=== PATIENT | male | born 1960 | race Caucasian/White ===

== ENCOUNTER 2022-07-05 14:36 | Inpatient (IN) ==
--- NOTE | 2022-07-05 15:25 | Emergency Department Note ---
HPI General Chief complaint: Wound/Laceration Stated complaint: foot wound Time Seen by Provider: 07/05/22 14:43 Source: patient Mode of arrival: wheelchair History of Present Illness HPI Narrative: Narrative: This patient who is diabetic and has a BKA to the left lower extremity presents with a complaint of infection to the right foot. Patient has been following with wound care for an infection to the right heel. He comes in today after the wound care nurse came to his residence to change his dressing and had concerned that he was developing a worsening infection. There is new erythema to the tissue surrounding the heel. There is also some concern due to some yellow discoloration of the skin around the wound that the patient may have a fungal infection. He does endorse some increased discomfort. He denies any trauma or injury. He has not felt febrile or chilled. He has not had any nausea or vomiting. He does see wound care every Tuesday. Anticipation after his last visit with wound care was that he would have a surgical debridement this week. Related Data Home Medications Medication Instructions Recorded Confirmed atorvastatin 20 mg tablet 40 mg PO QHS 01/29/20 07/01/22 melatonin 10 mg disintegrating 10 mg PO QHS 01/29/20 07/01/22 tablet metformin 1,000 mg tablet 1,000 mg PO BID 01/29/20 07/01/22 venlafaxine 150 mg 225 mg PO QAM 01/29/20 07/01/22 capsule,extended release 24 hr (Effexor XR) amlodipine 5 mg tablet 5 mg PO QDAY 07/28/21 07/01/22 aspirin 81 mg capsule 81 mg PO QDAY 07/28/21 07/01/22 brivaracetam 100 mg tablet 500 mg PO BID 07/28/21 07/01/22 (Briviact) cholecalciferol (vitamin D3) 125 150 mcg PO QDAY supplement 07/28/21 07/01/22 mcg (5,000 unit) tablet (Vitamin D3) gabapentin 300 mg capsule 300 mg PO TID 07/28/21 07/01/22 insulin detemir U-100 100 unit/mL 80 unit subcut BID 07/28/21 07/01/22 (3 mL) subcutaneous pen levothyroxine 200 mcg tablet 200 mcg PO QDAY 07/28/21 07/01/22 levothyroxine 50 mcg capsule 50 mcg PO QDAY 07/28/21 07/01/22 loratadine 10 mg capsule 20 mg PO QAM 07/28/21 07/01/22 [id number]-zkh-tyjmg acid-vit 1 tab PO DAILY supplement 07/28/21 07/01/22 K-lycop 400 mcg-20 mcg-370 mcg tablet (Men's 50 Plus Multivitamin) olmesartan 40 1 tab PO DAILY 07/28/21 07/01/22 mg-hydrochlorothiazide 12.5 mg tablet arginine 7 gram-glutamine 7 ea PO BID 06/25/22 07/01/22 gram-calcium HMB 1.5 gram oral powder pack (Piotr) ascorbic acid (vitamin C) 1,000 mg 1,000 mg PO QDAY 06/25/22 07/01/22 tablet,extended release (C Complex) cinnamon bark 500 mg capsule 500 mg PO BID 06/25/22 07/01/22 (Cinnamon) dulaglutide [Trulicity] subcut QWEEK 06/25/22 07/01/22 insulin detemir U-100 100 unit/mL 50 unit subcut BID 06/25/22 07/01/22 (3 mL) subcutaneous pen (Levemir FlexPen) krill 500 mg-omega-3 150 mg-dha 45 1 cap PO QDAY 06/25/22 07/01/22 mg-epa 75 [id number]-ievxn capsule (krill oil) metoprolol tartrate 25 mg tablet 25 mg PO BID 06/25/22 07/01/22 olmesartan 20 1 tab PO QDAY 06/25/22 07/01/22 mg-hydrochlorothiazide 12.5 mg tablet (Benicar HCT) omeprazole 20 mg capsule,delayed 20 mg PO QDAY 06/25/22 07/01/22 release Allergies Allergy/AdvReac Type Severity Reaction Status Date / Time No Known Drug Allergies Allergy Verified 07/05/22 14:50 Review of Systems ROS ROS Narrative: Narrative: Pertinent positives and negatives as noted in HPI. All other systems reviewed and negative. PFSH Narrative Patient History Narrative: Narrative: Medical/Surgical/Family History All Active Problems (Updated 07/05/22 @ 19:26 by Marilee Saavedra PA-C) Cellulitis (Acute) Pes planus of left foot (Chronic) Insomnia, persistent (Chronic) Allergic rhinitis (Chronic) Noncompliance with therapeutic plan (Chronic) Left ventricular hypertrophy (Chronic) Moderate recurrent major depression (Chronic) Pure hypercholesterolemia, unspecified (Chronic) Hypothyroidism (Chronic) Hypertension (Chronic) Poor peripheral circulation (Chronic) Seizure disorder (Chronic) Hearing loss (Chronic) Vitamin D deficiency (Chronic) Soft tissue mass (Chronic) Decubitus ulcer, heel (Chronic) History of left below knee amputation (Chronic) Diabetic neuropathy (Chronic) Diabetic foot ulcer (Chronic) Body mass index 40.0-44.9, adult (Chronic) Morbid obesity due to excess calories (Chronic) Abrasion of right index finger, initial encounter (Chronic) LEONARD (obstructive sleep apnea) (Chronic) Burn (Chronic) Osteomyelitis of foot, left, acute (Chronic) Sepsis (Chronic) Type 2 diabetes mellitus (Chronic) Acute hyperglycemia (Chronic) Pain of left heel (Chronic) Finger infection (Chronic) Syncope (Chronic) COVID-19 (Chronic) Sprain and strain of wrist (Chronic) Fall (Chronic) Medical History Abrasion of right index finger, initial encounter Acute hyperglycemia Allergic rhinitis Body mass index 40.0-44.9, adult Burn COVID-19 Decubitus ulcer, heel Diabetic foot ulcer Diabetic neuropathy Fall Finger infection Hearing loss History of left below knee amputation Hypertension Hypothyroidism Insomnia, persistent Left ventricular hypertrophy Moderate recurrent major depression Morbid obesity due to excess calories Noncompliance with therapeutic plan LEONARD (obstructive sleep apnea) Osteomyelitis of foot, left, acute Pain of left heel Pes planus of left foot Poor peripheral circulation Pure hypercholesterolemia, unspecified Seizure disorder Sepsis Soft tissue mass Sprain and strain of wrist Syncope Type 2 diabetes mellitus Vitamin D deficiency Surgical History History of ankle surgery (05/08/21) Left ankle break with repair History of cataract surgery (~2015) History of eye surgery Right eye -- correct bleeding blood vessel due to DM -- Dr. Bañuelos History of eye surgery (04/12/17) Reattachment of retina right eye History of eye surgery (01/31/18) Removal of oil in right eye -- Dr. Brown History of hand surgery (~2009) Left 5th finger (post fx) -- Dr. Roe History of left lower extremity amputation (~08/2021) Hx of LASIK (~06/2017) Right eye Hx of surgical amputation of finger (~2018) Partial amputation left middle finger due to bone infection Hx of surgical amputation of finger (~2020) Partial amputation right middle finger Family History Father Prostate cancer Throat cancer Social History Smoking Status: Never smoker Alcohol Intake Frequency: does not drink Substance Use: does not use Exam Narrative Narrative: Narrative: Vital signs noted General: mild distress. Skin: Warm. Dry. No rash. Normal color. Eyes: PERRL. EOMI. Mouth: Membranes moist. Normal inspection. Neck: Good ROM. No meningeal signs. Supple. Cardiovascular: Regular rate and rhythm. No murmur. Respiratory: No respiratory distress. Breath sounds equal. No wheezing/rales/rhonchi. Gastrointestinal: Abdomen soft. No tenderness. No distention. Normal bowel sounds. No rebound tenderness or guarding. Extremities: BKA left lower extremity. There is an eschar with wound to the right heel. Malodorous. Callus surrounding the centralized eschar. Eschar measures 4 cm in diameter. No active drainage. No fluctuance. Surrounding erythema noted extending into the forefoot. No streaking. Achilles tendon is palpated to be intact Neurological: No focal neurological deficits observed. Alert. Oriented x 3 Course Course Course Narrative: The following orders are placed and reviewed by myself: Patient does have mild fever noted upon arrival here to the emergency department. CBC and CHEM panel are reviewed Blood cultures obtained Lactic acid is 2 X-rays of the foot to evaluate for bony involvement concerning for osteomyelitis is evaluated by myself to be without moth-eaten appearance consistent with osteomyelitis. Cotton tip applicator was used to probe the tissue which is intact. Hemostat was used to probe tissue without probing to bone. Patient does have newly developed erythema with mild elevation in white count and borderline lactic acid. Due to the patient's history of rapidly progressing infection and the patient and his family being uncomfortable with being discharged home as well and has plans for surgical debridement in the next couple days I did discuss the patient with hospital service regarding admission today. Hospitalist service and is is in agreement. Hospitalist will touch base with wound care regarding plans for surgical debridement. Vital Signs Vital signs: Vital Signs Temperature 97.4 F 07/05/22 14:48 Pulse Rate 95 H 07/05/22 14:48 Respiratory Rate 18 07/05/22 14:48 Blood Pressure 121/72 07/05/22 14:48 Pulse Oximetry (%) 99 07/05/22 14:48 Oxygen Delivery Method Room Air 07/05/22 14:48 Temperature 98.8 F 07/05/22 15:50 Pulse Rate 91 H 07/05/22 17:02 Respiratory Rate 18 07/05/22 14:48 Blood Pressure 129/81 07/05/22 16:16 Pulse Oximetry (%) 98 07/05/22 17:02 Oxygen Delivery Method Room Air 07/05/22 14:48 MDM MDM Narrative Medical decision making narrative: Narrative: Lab Data 07/05/22 16:30 Labs: Lab Results 07/05/22 07/05/22 07/05/22 Range/Units 16:30 16:30 16:30 WBC 11.3 H (4.5-11.0) K/mcL RBC 4.29 L (4.63-6.08) M/mcL Hgb 12.3 L (13.7-17.5) g/dL Hct 38.1 L (40.1-51.0) % POC Hct (41-55) MCV 88.8 (80.0-100.0) fL MCH 28.7 (26.0-34.0) pg MCHC 32.3 (31.0-36.0) g/dL RDW 12.6 (11.5-14.5) % Plt Count 345 (140-440) K/mcL MPV 9.8 (8.8-12.5) fL Immature Gran % (Auto) 0.6 H (0.0-0.5) % Neut % (Auto) 77.8 (38.0-78.0) % Lymph % (Auto) 10.9 L (15.5-49.0) % Andrew % (Auto) 8.5 (1.0-12.0) % Eos % (Auto) 1.6 (0.0-7.0) % Baso % (Auto) 0.6 (0.0-2.0) % Lymph # (Auto) 1.23 L (1.50-4.80) K/mcL [place] # (Auto) 0.96 H (0.10-0.90) K/mcL Eos # (Auto) 0.18 (0.00-0.70) K/mcL Baso # (Auto) 0.07 (0.00-0.30) K/mcL Immature Gran # 0.07 H (0.00-0.05) K/mcl Absolute Neutrophils 8.80 H (1.80-8.00) K/mcL ESR 73 H (0-20) mm/hr VBG Lactic Acid 2.0 (0.5-2.0) mmol/L POC Sodium (133-145) POC Potassium (3.3-5.1) POC Chloride (96-108) POC Total CO2 (22-30) POC BUN (6-20) POC Creatinine (0.6-1.2) POC Glucose (70-105) POC WB Ioniz Calcium (1.16-1.32) C-Reactive Protein 4.30 H (0.03-0.80) mg/dL Procalcitonin 0.08 (<0.10) ng/mL 07/05/22 Range/Units 16:39 WBC (4.5-11.0) K/mcL RBC (4.63-6.08) M/mcL Hgb (13.7-17.5) g/dL Hct (40.1-51.0) % POC Hct 37.0 L (41-55) MCV (80.0-100.0) fL MCH (26.0-34.0) pg MCHC (31.0-36.0) g/dL RDW (11.5-14.5) % Plt Count (140-440) K/mcL MPV (8.8-12.5) fL Immature Gran % (Auto) (0.0-0.5) % Neut % (Auto) (38.0-78.0) % Lymph % (Auto) (15.5-49.0) % [place] % (Auto) (1.0-12.0) % Eos % (Auto) (0.0-7.0) % Baso % (Auto) (0.0-2.0) % Lymph # (Auto) (1.50-4.80) K/mcL Andrew # (Auto) (0.10-0.90) K/mcL Eos # (Auto) (0.00-0.70) K/mcL Baso # (Auto) (0.00-0.30) K/mcL Immature Gran # (0.00-0.05) K/mcl Absolute Neutrophils (1.80-8.00) K/mcL ESR (0-20) mm/hr VBG Lactic Acid (0.5-2.0) mmol/L POC Sodium 135 (133-145) POC Potassium 4.4 (3.3-5.1) POC Chloride 100 (96-108) POC Total CO2 27.0 (22-30) POC BUN 34 H (6-20) POC Creatinine 0.9 (0.6-1.2) POC Glucose 155 H (70-105) POC WB Ioniz Calcium 1.17 (1.16-1.32) C-Reactive Protein (0.03-0.80) mg/dL Procalcitonin (<0.10) ng/mL Discharge Plan Patient/Caregiver Discharge Instructions Pt seen by HUMAN DEVELOPMENT PROFESSOR/PA only: Yes Clinical Impression: Cellulitis Patient Disposition: Xfer As Outpt/Obs ([facility]) Follow up with: Josiah Espinosa [Primary Care Provider] - Prescriptions: No Action dulaglutide [Trulicity] subcut QWEEK metoprolol tartrate 25 mg tablet 25 mg PO BID Levemir FlexPen 100 unit/mL (3 mL) insulin pen 50 unit subcut BID olmesartan-hydrochlorothiazide [Benicar HCT] 20-12.5 mg tablet 1 tab PO QDAY Piotr 7-7-1.5 gram powder in packet PO BID omeprazole 20 mg capsule,delayed release(DR/EC) 20 mg PO QDAY C Complex 1,000 mg tablet extended release 1,000 mg PO QDAY cinnamon bark [Cinnamon] 500 mg capsule 500 mg PO BID krill oil [id number] mg capsule 1 cap PO QDAY atorvastatin 20 mg Tablet 40 mg PO QHS metformin 1,000 mg Tablet 1,000 mg PO BID melatonin 10 mg Tablet,Disintegrating 10 mg PO QHS venlafaxine [Effexor XR] 150 mg Capsule,Extended Release 24hr 225 mg PO QAM amlodipine 5 mg Tablet 5 mg PO QDAY gabapentin 300 mg Capsule 300 mg PO TID levothyroxine 200 mcg Tablet 200 mcg PO QDAY olmesartan-hydrochlorothiazide 40-12.5 mg Tablet 1 tab PO DAILY Levemir Flexpen 100 unit/mL (3 mL) Insulin Pen 80 unit SUBCUT BID cholecalciferol (vitamin D3) [Vitamin D3] 125 mcg (5,000 unit) Tablet 150 mcg PO QDAY levothyroxine 50 mcg Capsule 50 mcg PO QDAY loratadine 10 mg Capsule 20 mg PO QAM Men's 50 Plus Multivitamin 400-20-370 mcg Tablet 1 tab PO DAILY Briviact 100 mg Tablet 500 mg PO BID aspirin 81 mg Capsule 81 mg PO QDAY
--- NOTE | 2022-07-05 16:38 | XRay Report ---
CLINICAL INFORMATION: Cellulitis COMPARISON: Three 2022 FINDINGS: Moderate hallux valgus, metatarsus abductus and first through fifth digit hammertoe deformities appreciated. No evidence of osteomyelitis.. Joint spaces are normal in width and alignment. Moderate plantar soft tissue swelling appreciated. There is a 4 cm ulcerating lesion in the soft tissues over the calcaneus. IMPRESSION: 4 cm ulceration in the plantar soft tissues over the calcaneus-new from prior exam. No evidence of underlying osteomyelitis Interpreted and Authenticated by: Gonzalo Padilla 07/05/22
[2022-07-05 16:41] LABS: POC Calcium, Ionized 1.17 (1.16-1.32); POC Creatinine 0.9 (0.6-1.2); POC Potassium 4.4 (3.3-5.1)
[2022-07-05 17:22] LABS: Basophils # (Auto) 0.07 K/mcL (0.00-0.30); Basophils % (Auto) 0.6 % (0.0-2.0); Eosinophils # (Auto) 0.18 K/mcL (0.00-0.70); Eosinophils % (Auto) 1.6 % (0.0-7.0); Hematocrit 38.1 % (40.1-51.0); Hemoglobin 12.3 g/dL (13.7-17.5); Lymphocytes # (Auto) 1.23 K/mcL (1.50-4.80); Lymphocytes % (Auto) 10.9 % (15.5-49.0); Mean Cell Volume 88.8 fL (80.0-100.0); Mean Corpuscular HGB Conc 32.3 g/dL (31.0-36.0); Mean Platelet Volume 9.8 fL (8.8-12.5); Monocytes # (Auto) 0.96 K/mcL (0.10-0.90); Monocytes % (Auto) 8.5 % (1.0-12.0); Neutrophils % (Auto) 77.8 % (38.0-78.0); Platelet Count 345 K/mcL (140-440); RBC 4.29 M/mcL (4.63-6.08); Red Cell Distribution Width 12.6 % (11.5-14.5); WBC 11.3 K/mcL (4.5-11.0)
[2022-07-05 17:47] LABS: Erythrocyte Sedimentation Rate 73 mm/hr (0-20)
--- NOTE | 2022-07-05 18:51 | Internal Med History&Physical ---
HPI History of Present Illness Patient information: Note initiated : 07/05/22 at 6:39 pm Service Date, if different from initiated Date: [] Patient: Aravind Ashley 61 y/o M admitted on for foot wound. Chief Complaint: [] History of present illness: Mr. Ashley is a 61-year-old male with a history of insulin-dependent type 2 diabetes, hypertension, seizure disorder, GERD, obstructive sleep apnea, obesity, peripheral artery disease complicated by multiple amputations including a left BKA and several fingers presented to the ED at the recommendation of wound care for further evaluation of a right heel wound. The patient says that he first noticed the heel wound in May and it has progressively worsened. The patient follows in the wound care clinic and was supposed to have a debridement done by Dr. Bermudez on 07/07/2022. In the emergency department, the patient was afebrile, had mild leukocytosis, no evidence of sepsis however the patient does clearly have an infection in his right heel. CRP was 4.3, ESR 73. The patient says that he has had prior right lower extremity angiography which showed peripheral arterial disease however it was not amenable to correction by IR. He had a left BKA after developing a left foot infection a while ago. He says at that time he was septic and required transfer to higher level of care and ultimately received the BKA during the hospitalization. Review of systems Constitutional: no fever, fatigue, or weight loss Eyes: no vision changes or pain Cardiovascular: no chest pain, no palpitations Respiratory: no cough or dyspnea Gastrointestinal: no abdominal pain, no nausea, vomiting, or diarrhea Genitourinary: no dysuria or difficulty voiding Musculoskeletal: History of left BKA and multiple upper extremity digit amputations. Integumentary: Right heel wound. Neurological: no focal weakness or numbness Psychiatric: no anxiety or depression Physical exam Head: Atraumatic, normal inspection. Eyes: normal appearance, no scleral icterus. Neck: full ROM Respiratory: no respiratory distress. Cardiovascular: normal rate and rhythm, S1, S2. GI/Abdominal: soft, nontender, no guarding. Extremities: Right heel wound, left BKA, multiple prior upper extremity digit amputations. Neurological: CN II-XII intact, intact motor, intact sensation. Psychiatric: normal mood. Skin: Eschar over right heel wound, surrounding erythema, warmth and tenderness consistent with cellulitis. PFSH PFSH All Active Problems Pes planus of left foot (Chronic) Insomnia, persistent (Chronic) Allergic rhinitis (Chronic) Noncompliance with therapeutic plan (Chronic) Left ventricular hypertrophy (Chronic) Moderate recurrent major depression (Chronic) Pure hypercholesterolemia, unspecified (Chronic) Hypothyroidism (Chronic) Hypertension (Chronic) Poor peripheral circulation (Chronic) Seizure disorder (Chronic) Hearing loss (Chronic) Vitamin D deficiency (Chronic) Soft tissue mass (Chronic) Decubitus ulcer, heel (Chronic) History of left below knee amputation (Chronic) Diabetic neuropathy (Chronic) Diabetic foot ulcer (Chronic) Body mass index 40.0-44.9, adult (Chronic) Morbid obesity due to excess calories (Chronic) Abrasion of right index finger, initial encounter (Chronic) LEONARD (obstructive sleep apnea) (Chronic) Burn (Chronic) Osteomyelitis of foot, left, acute (Chronic) Sepsis (Chronic) Type 2 diabetes mellitus (Chronic) Acute hyperglycemia (Chronic) Pain of left heel (Chronic) Finger infection (Chronic) Syncope (Chronic) COVID-19 (Chronic) Sprain and strain of wrist (Chronic) Fall (Chronic) Medical History Abrasion of right index finger, initial encounter Acute hyperglycemia Allergic rhinitis Body mass index 40.0-44.9, adult Burn COVID-19 Decubitus ulcer, heel Diabetic foot ulcer Diabetic neuropathy Fall Finger infection Hearing loss History of left below knee amputation Hypertension Hypothyroidism Insomnia, persistent Left ventricular hypertrophy Moderate recurrent major depression Morbid obesity due to excess calories Noncompliance with therapeutic plan LEONARD (obstructive sleep apnea) Osteomyelitis of foot, left, acute Pain of left heel Pes planus of left foot Poor peripheral circulation Pure hypercholesterolemia, unspecified Seizure disorder Sepsis Soft tissue mass Sprain and strain of wrist Syncope Type 2 diabetes mellitus Vitamin D deficiency Surgical History History of ankle surgery (05/08/21) Left ankle break with repair History of cataract surgery (~2015) History of eye surgery Right eye -- correct bleeding blood vessel due to DM -- Dr. Bañuelos History of eye surgery (04/12/17) Reattachment of retina right eye History of eye surgery (01/31/18) Removal of oil in right eye -- Dr. Brown History of hand surgery (~2009) Left 5th finger (post fx) -- Dr. Roe History of left lower extremity amputation (~08/2021) Hx of LASIK (~06/2017) Right eye Hx of surgical amputation of finger (~2018) Partial amputation left middle finger due to bone infection Hx of surgical amputation of finger (~2020) Partial amputation right middle finger Family History Father Prostate cancer Throat cancer Social History marital status: occupational status: disabled physical activity: none smoking status: Never smoker alcohol intake frequency: does not drink substance use type: does not use MEDS/ALLERGIES Home Medications and Allergies Home Medications Medication Instructions Recorded Confirmed Type atorvastatin 20 mg tablet 40 mg PO QHS 01/29/20 07/01/22 History melatonin 10 mg disintegrating 10 mg PO QHS 01/29/20 07/01/22 History tablet metformin 1,000 mg tablet 1,000 mg PO BID 01/29/20 07/01/22 History venlafaxine 150 mg 225 mg PO QAM 01/29/20 07/01/22 History capsule,extended release 24 hr (Effexor XR) amlodipine 5 mg tablet 5 mg PO QDAY 07/28/21 07/01/22 History aspirin 81 mg capsule 81 mg PO QDAY 07/28/21 07/01/22 History brivaracetam 100 mg tablet 500 mg PO BID 07/28/21 07/01/22 History (Briviact) cholecalciferol (vitamin D3) 125 150 mcg PO QDAY supplement 07/28/21 07/01/22 History mcg (5,000 unit) tablet (Vitamin D3) gabapentin 300 mg capsule 300 mg PO TID 07/28/21 07/01/22 History insulin detemir U-100 100 unit/mL 80 unit subcut BID 07/28/21 07/01/22 History (3 mL) subcutaneous pen levothyroxine 200 mcg tablet 200 mcg PO QDAY 07/28/21 07/01/22 History levothyroxine 50 mcg capsule 50 mcg PO QDAY 07/28/21 07/01/22 History loratadine 10 mg capsule 20 mg PO QAM 07/28/21 07/01/22 History lwwponkaczbt-dgl-ebrar acid-vit 1 tab PO DAILY supplement 07/28/21 07/01/22 History K-lycop 400 mcg-20 mcg-370 mcg tablet (Men's 50 Plus Multivitamin) olmesartan 40 1 tab PO DAILY 07/28/21 07/01/22 History mg-hydrochlorothiazide 12.5 mg tablet arginine 7 gram-glutamine 7 ea PO BID 06/25/22 07/01/22 History gram-calcium HMB 1.5 gram oral powder pack (Piotr) ascorbic acid (vitamin C) 1,000 mg 1,000 mg PO QDAY 06/25/22 07/01/22 History tablet,extended release (C Complex) cinnamon bark 500 mg capsule 500 mg PO BID 06/25/22 07/01/22 History (Cinnamon) dulaglutide [Trulicity] subcut QWEEK 06/25/22 07/01/22 History insulin detemir U-100 100 unit/mL 50 unit subcut BID 06/25/22 07/01/22 History (3 mL) subcutaneous pen (Levemir FlexPen) krill 500 mg-omega-3 150 mg-dha 45 1 cap PO QDAY 06/25/22 07/01/22 History mg-epa 75 la-wrctyje-zssvd capsule (krill oil) metoprolol tartrate 25 mg tablet 25 mg PO BID 06/25/22 07/01/22 History olmesartan 20 1 tab PO QDAY 06/25/22 07/01/22 History mg-hydrochlorothiazide 12.5 mg tablet (Benicar HCT) omeprazole 20 mg capsule,delayed 20 mg PO QDAY 06/25/22 07/01/22 History release Allergies Allergy/AdvReac Type Severity Reaction Status Date / Time No Known Drug Allergies Allergy Verified 07/05/22 14:50 EXAM Constitutional Vitals: Temp Pulse Resp BP Pulse Ox O2 Del Method 98.8 F 91 H 18 129/81 98 Room Air 07/05/22 15:50 07/05/22 17:02 07/05/22 14:48 07/05/22 16:16 07/05/22 17:02 07/05/22 14:48 DATA Data Completed and Pending Labs: Labs from last 24 hours 07/05/22 07/05/22 07/05/22 16:39 16:30 16:30 WBC 11.3 H RBC 4.29 L Hgb 12.3 L Hct 38.1 L POC Hct 37.0 L MCV 88.8 MCH 28.7 MCHC 32.3 RDW 12.6 Plt Count 345 MPV 9.8 Immature Gran % (Auto) 0.6 H Neut % (Auto) 77.8 Lymph % (Auto) 10.9 L [place] % (Auto) 8.5 Eos % (Auto) 1.6 Baso % (Auto) 0.6 Lymph # (Auto) 1.23 L [place] # (Auto) 0.96 H Eos # (Auto) 0.18 Baso # (Auto) 0.07 Immature Gran # 0.07 H Absolute Neutrophils 8.80 H ESR 73 H VBG Lactic Acid POC Sodium 135 POC Potassium 4.4 POC Chloride 100 POC Total CO2 27.0 POC BUN 34 H POC Creatinine 0.9 POC Glucose 155 H POC WB Ioniz Calcium 1.17 C-Reactive Protein Procalcitonin Pending 07/05/22 16:30 WBC RBC Hgb Hct POC Hct MCV MCH MCHC RDW Plt Count MPV Immature Gran % (Auto) Neut % (Auto) Lymph % (Auto) [place] % (Auto) Eos % (Auto) Baso % (Auto) Lymph # (Auto) [place] # (Auto) Eos # (Auto) Baso # (Auto) Immature Gran # Absolute Neutrophils ESR VBG Lactic Acid 2.0 POC Sodium POC Potassium POC Chloride POC Total CO2 POC BUN POC Creatinine POC Glucose POC WB Ioniz Calcium C-Reactive Protein 4.30 H Procalcitonin A/P Narrative A/P Narrative: Assessment: 61-year-old male with a history of insulin-dependent type 2 diabetes, hypertension, seizure disorder, GERD, obstructive sleep apnea, obesity, peripheral artery disease complicated by multiple amputations including a left BKA and several fingers now admitted for a right heel infection and cellulitis. #Right heel diabetic foot infection and cellulitis #Type 2 diabetes mellitus complicated by neuropathy #Peripheral artery disease #Essential hypertension #Seizure disorder #GERD #Obstructive sleep apnea on CPAP #Obesity BMI 39 #History of left BKA and multiple finger amputations Plan -Start vancomycin IV per pharmacy and Zosyn. -CTA right lower extremity to evaluate for PAD amenable to intervention. -Follow-up blood cultures x2 from the ED. -Dr. Keenan will obtain surgical cultures tomorrow. -Check procalcitonin level. -Lantus 50 units at bedtime, prandial Humalog 1unit to 6 g carb ratio, correction Humalog SSI low-dose. -Check hemoglobin A1c. -Analgesics as needed. -Wound cares per Dr. Sierra. -Home medication reconciliation, resume important medications. -Consistent carbohydrate diet, n.p.o. after breakfast tomorrow. -CPAP at bedtime. -CODE STATUS: Full -Disposition: Admit to inpatient MedSurg. Time Spent With Patient Time: Total time spent is greater than 50% in coordination of care (as documented) at patient's floor/unit and/or counseling patient:
[2022-07-05] MEDS ORDERED: HYDROcodone/APAP 5/325MG TABLET PO PRN (19:37)
[2022-07-05] MEDS ORDERED: HYDROmorphone 0.5 MG/0.5 ML SYRINGE IV PRN (19:37)
[2022-07-05] MEDS ORDERED: VANCOMYCIN PER PHARMACY IV SCH (19:37)
[2022-07-05] MEDS ORDERED: DEXTROSE 50% 50 ML VIAL IV PRN (19:37)
[2022-07-05] MEDS ORDERED: ACETAMINOPHEN 325 MG TABLET PO PRN (19:37)
[2022-07-05] MEDS ORDERED: DEXTROSE 31 GM ORAL.SUSP PO PRN (19:37)
[2022-07-05] MEDS ORDERED: ONDANSETRON 4 MG/2 ML VIAL IV PRN (19:37)
[2022-07-05] MEDS ORDERED: IOPAMIDOL 125 ML BOTTLE IV ONE (20:50)
[2022-07-05] MEDS: PIPERACILLIN SODIUM/TAZOBACTAM 4.5 GM in DEXTROSE 5% IN WATER 50 ML IV SCH (21:09)
[2022-07-05] MEDS: SENNOSIDES 1 TABLET PO SCH (21:41)
[2022-07-05] MEDS: DOCUSATE SODIUM 100 MG CAPSULE PO SCH (21:41)
[2022-07-05] MEDS: 0.9 % SODIUM CHLORIDE 10 ML SYRINGE IV SCH (21:42)
[2022-07-05] MEDS: INSULIN LISPRO 1 UNIT/0.01 ML UNIT SQ SCH (21:54)
[2022-07-05] MEDS: INSULIN GLARGINE, HUMAN 1 UNIT/0.01 ML SQ SCH (21:54)
[2022-07-05] MEDS ORDERED: BRIVARACETAM 100 MG PO SCH (22:00)
[2022-07-05] MEDS: VANCOMYCIN 2,000 MG in 0.9 % SODIUM CHLORIDE 500 ML IV SCH (22:02)
[2022-07-05] MEDS ORDERED: METOPROLOL TARTRATE 25 MG TABLET ONE (22:25)
[2022-07-05] MEDS ORDERED: GABAPENTIN 300 MG CAPSULE ONE (22:32)
[2022-07-05] MEDS: METOPROLOL TARTRATE 25 MG TABLET PO SCH (22:32)
[2022-07-05] MEDS: GABAPENTIN 300 MG CAPSULE PO SCH (22:33)
--- NOTE | 2022-07-06 02:17 | Cat Scan Report ---
CLINICAL INFORMATION: Right lower extremity ischemia COMPARISON: None. TECHNIQUE: 120 cc of Isovue-370 were injected intravenously and, using SmartPrep to maximize arterial opacification, 0.625 mm helical slices were obtained from the diaphragm through the feet following reconstruction, 2.5 mm sagittal, coronal and axial reformatted images were processed and reviewed at bone and soft tissue windows. 3-D volume rendered and selective CPR images were constructed on an independent workstation.The exam was performed using radiation dose optimization techniques including, but not limited to, automated exposure control, adjustment of the mA and/or kV according to patient size and use of iterative reconstruction technique. FINDINGS: The abdominal aorta is normal diameter (19 mm) disease and demonstrates mild intimal thickening. The celiac, SMA and both renal arteries are widely patent. 50% stenosis of the DUNIA origin. There is scattered calcific plaque in both common, internal and external iliac, both common femoral, and both superficial femoral arteries. On the left side, there is a BKA amputation with high-grade stenoses in the popliteal artery and the residual proximal trifurcation arteries. On the right side, there is a 50% stenosis of the popliteal artery. The right trifurcation arteries are riddled with fibrofatty and calcific plaque. The peroneal artery is occluded in the distal calf. There are multiple stenoses, greater than 50%, in both the anterior tibial and the posterior tibial arteries. The arteries do, however, appear to be patent to the level of foot. Large ulceration posterior soft tissues over the right calcaneus appreciated. No evidence of underlying abscess or osteomyelitis. No other soft tissue abnormality seen in the axial images of the abdomen, pelvis and lower extremities IMPRESSION: 1. Right leg: iliac femoral and popliteal inflow is widely patent. Two-vessel trifurcation (anterior tibial and posterior arteries) are patent to the foot level, but riddled with multiple stenoses greater than 50%. The peroneal artery is occluded in the distal calf. 2. Left BKA amputation. There are high-grade stenoses in the distal popliteal and residual proximal trifurcation arteries ranging up to 90%. 3. 50% stenosis proximal DUNIA 4. 4 cm cutaneous ulceration posterior right calcaneus. No evidence of osteomyelitis or other complication Interpreted and Authenticated by: Gonzalo Padilla 07/06/22
[2022-07-06] MEDS: 0.9 % SODIUM CHLORIDE 10 ML SYRINGE IV SCH ×3 (04:09→20:51)
[2022-07-06] MEDS: PIPERACILLIN SODIUM/TAZOBACTAM 4.5 GM in DEXTROSE 5% IN WATER 50 ML IV SCH ×3 (04:09→20:41)
[2022-07-06 06:28] LABS: Basophils # (Auto) 0.06 K/mcL (0.00-0.30); Basophils % (Auto) 0.5 % (0.0-2.0); Eosinophils # (Auto) 0.17 K/mcL (0.00-0.70); Eosinophils % (Auto) 1.4 % (0.0-7.0); Hemoglobin 12.5 g/dL (13.7-17.5); Lymphocytes # (Auto) 1.63 K/mcL (1.50-4.80); Lymphocytes % (Auto) 13.8 % (15.5-49.0); Mean Corpuscular HGB Conc 32.9 g/dL (31.0-36.0); Mean Platelet Volume 9.8 fL (8.8-12.5); Monocytes # (Auto) 0.93 K/mcL (0.10-0.90); Monocytes % (Auto) 7.9 % (1.0-12.0); Neutrophils % (Auto) 75.9 % (38.0-78.0); Platelet Count 374 K/mcL (140-440); RBC 4.32 M/mcL (4.63-6.08); Red Cell Distribution Width 12.6 % (11.5-14.5); WBC 11.8 K/mcL (4.5-11.0)
[2022-07-06 06:47] LABS: Carbon Dioxide 23 mmol/L (22-30); Chloride 97 mmol/L (96-108); Estimated Average Glucose(eAG) 197 mg/dL; Hemoglobin A1C 8.5 % Hgb (4.0-6.0)
[2022-07-06 06:48] LABS: ALT/SGPT 13 U/L (<40); AST/SGOT 15 U/L (<40); Albumin 3.6 gm/dL (3.2-5.2); Alkaline Phosphatase 142 U/L (39-117); Bilirubin,Direct < 0.2 mg/dL (0-0.3); Bilirubin,Total 0.3 mg/dL (0.1-1.0); Blood Urea Nitrogen 28 mg/dL (6-20); Calcium 9.4 mg/dL (8.6-10.4); Globulin 3.6 gm/dL (2.2-3.7); Glomerular Filtration Rate 97; Glucose 110 mg/dL (70-105); Lactate Dehydrogenase 165 U/L (135-225); Phosphorous 3.5 mg/dL (2.5-4.5); Triglycerides 166 mg/dL (<150); Uric Acid 7.1 mg/dL (2.5-8.0)
[2022-07-06] MEDS: INSULIN LISPRO 1 UNIT/0.01 ML UNIT SQ SCH ×7 (07:22→20:57)
[2022-07-06] MEDS: OMEPRAZOLE 20 MG CAPSULE PO SCH (07:25)
[2022-07-06] MEDS: METOPROLOL TARTRATE 25 MG TABLET PO SCH ×2 (08:27→20:48)
[2022-07-06] MEDS: DOCUSATE SODIUM 100 MG CAPSULE PO SCH ×2 (08:27→20:50)
[2022-07-06] MEDS: LEVOTHYROXINE 100 MCG TABLET PO SCH (08:27)
[2022-07-06] MEDS: HYDROCHLOROTHIAZIDE 12.5 MG CAPSULE PO SCH (08:27)
[2022-07-06] MEDS: amLODIPine 5 MG TABLET PO SCH (08:27)
[2022-07-06] MEDS: LEVOTHYROXINE 50 MCG TABLET PO SCH (08:27)
[2022-07-06] MEDS: VENLAFAXINE 75 MG CAP.XL.24H PO SCH (08:27)
[2022-07-06] MEDS: VENLAFAXINE 150 MG CAP.XL.24H PO SCH (08:27)
[2022-07-06] MEDS: BRIVIACT 100 MG PO SCH ×2 (08:28→20:51)
[2022-07-06] MEDS: OLMESARTAN MEDOXOMIL 20 MG TABLET PO SCH (08:28)
[2022-07-06] MEDS: ASPIRIN 81 MG TAB.CHEW PO SCH (08:28)
[2022-07-06] MEDS ORDERED: LORATADINE 10 MG PO SCH (09:00)
[2022-07-06] MEDS: VANCOMYCIN 2,000 MG in 0.9 % SODIUM CHLORIDE 500 ML IV SCH ×2 (09:56→21:18)
--- NOTE | 2022-07-06 10:43 | General Surgery Consult Note ---
HPI Date of Consult Consult Date: 07/06/22 Requesting physician: Jd Traore Primary Care Provider: Josiah Espinosa Consult Narrative Patient Information: Note initiated : 07/06/22 at 10:35 am Service Date, if different from initiated Date: [] Patient: Aravind Ashley 61 y/o M admitted on 07/05/22 for foot wound. Chief Complaint: [] Chief complaint: Cellulitis of RIGHT psoterior heel. Reason for consult: Surgical debridement and continuation of wound management. cc:: Mr. Ashley is an established patient at wound care clinic [facility]. He presented to the ER at [facility] for cellulitis, odor, redness and edema around LEFT posterior heel DFU. He was started on IV antibiotics for leucocytosis and elevated CRP. He needs surgical debridement in OR, with pulse lavage irrigation, deep tissue and bone cultures and biopsies. CC: Jd Traore MD Review of Systems All systems: reviewed and no additional remarkable complaints except as stated Constitutional Constitutional: Present as per HPI and other (RIGHT posterior heel DFU with periwound warmth, erythema and odor while awaiting surgical debridement. Seen by N and referred to ER for interval chages in wound.) PFSH PFSH All Active Problems Cellulitis (Acute) Pes planus of left foot (Chronic) Insomnia, persistent (Chronic) Allergic rhinitis (Chronic) Noncompliance with therapeutic plan (Chronic) Left ventricular hypertrophy (Chronic) Moderate recurrent major depression (Chronic) Pure hypercholesterolemia, unspecified (Chronic) Hypothyroidism (Chronic) Hypertension (Chronic) Poor peripheral circulation (Chronic) Seizure disorder (Chronic) Hearing loss (Chronic) Vitamin D deficiency (Chronic) Soft tissue mass (Chronic) Decubitus ulcer, heel (Chronic) History of left below knee amputation (Chronic) Diabetic neuropathy (Chronic) Diabetic foot ulcer (Chronic) Body mass index 40.0-44.9, adult (Chronic) Morbid obesity due to excess calories (Chronic) Abrasion of right index finger, initial encounter (Chronic) LEONARD (obstructive sleep apnea) (Chronic) Burn (Chronic) Osteomyelitis of foot, left, acute (Chronic) Sepsis (Chronic) Type 2 diabetes mellitus (Chronic) Acute hyperglycemia (Chronic) Pain of left heel (Chronic) Finger infection (Chronic) Syncope (Chronic) COVID-19 (Chronic) Sprain and strain of wrist (Chronic) Fall (Chronic) Medical History Abrasion of right index finger, initial encounter Acute hyperglycemia Allergic rhinitis Body mass index 40.0-44.9, adult Burn COVID-19 Decubitus ulcer, heel Diabetic foot ulcer Diabetic neuropathy Fall Finger infection Hearing loss History of left below knee amputation Hypertension Hypothyroidism Insomnia, persistent Left ventricular hypertrophy Moderate recurrent major depression Morbid obesity due to excess calories Noncompliance with therapeutic plan LEONARD (obstructive sleep apnea) Osteomyelitis of foot, left, acute Pain of left heel Pes planus of left foot Poor peripheral circulation Pure hypercholesterolemia, unspecified Seizure disorder Sepsis Soft tissue mass Sprain and strain of wrist Syncope Type 2 diabetes mellitus Vitamin D deficiency Surgical History History of ankle surgery (05/08/21) Left ankle break with repair History of cataract surgery (~2015) History of eye surgery Right eye -- correct bleeding blood vessel due to DM -- Dr. Bañuelos History of eye surgery (04/12/17) Reattachment of retina right eye History of eye surgery (01/31/18) Removal of oil in right eye -- Dr. Brown History of hand surgery (~2009) Left 5th finger (post fx) -- Dr. Roe History of left lower extremity amputation (~08/2021) Hx of LASIK (~06/2017) Right eye Hx of surgical amputation of finger (~2018) Partial amputation left middle finger due to bone infection Hx of surgical amputation of finger (~2020) Partial amputation right middle finger Family History Father Prostate cancer Throat cancer Social History marital status: occupational status: disabled physical activity: none smoking status: Never smoker alcohol intake frequency: does not drink substance use type: does not use MEDS/ALLERGIES Home Medications and Allergies Home Medications Medication Instructions Recorded Confirmed Type atorvastatin 20 mg tablet 40 mg PO QHS 01/29/20 07/05/22 History melatonin 10 mg disintegrating 10 mg PO QHS 01/29/20 07/05/22 History tablet metformin 1,000 mg tablet 1,000 mg PO BID 01/29/20 07/05/22 History venlafaxine 150 mg 225 mg PO QAM 01/29/20 07/05/22 History capsule,extended release 24 hr (Effexor XR) amlodipine 5 mg tablet 5 mg PO QDAY 07/28/21 07/05/22 History aspirin 81 mg capsule 81 mg PO QDAY 07/28/21 07/05/22 History brivaracetam 100 mg tablet 100 mg PO BID 07/28/21 07/05/22 History (Briviact) cholecalciferol (vitamin D3) 125 150 mcg PO QDAY supplement 07/28/21 07/05/22 History mcg (5,000 unit) tablet (Vitamin D3) gabapentin 300 mg capsule 300 mg PO QHS 07/28/21 07/05/22 History levothyroxine 200 mcg tablet 200 mcg PO QDAY 07/28/21 07/05/22 History levothyroxine 50 mcg capsule 50 mcg PO QDAY 07/28/21 07/05/22 History loratadine 10 mg capsule 20 mg PO QAM 07/28/21 07/05/22 History idylytrnbzhl-nnv-brqyd acid-vit 1 tab PO DAILY supplement 07/28/21 07/05/22 History K-lycop 400 mcg-20 mcg-370 mcg tablet (Men's 50 Plus Multivitamin) olmesartan 40 1 tab PO DAILY 07/28/21 07/05/22 History mg-hydrochlorothiazide 12.5 mg tablet arginine 7 gram-glutamine 7 ea PO BID 06/25/22 07/01/22 History gram-calcium HMB 1.5 gram oral powder pack (Piotr) ascorbic acid (vitamin C) 1,000 mg 1,000 mg PO QDAY 06/25/22 07/05/22 History tablet,extended release (C Complex) cinnamon bark 500 mg capsule 500 mg PO BID 06/25/22 07/05/22 History (Cinnamon) dulaglutide [Trulicity] subcut QWEEK 06/25/22 07/01/22 History insulin detemir U-100 100 unit/mL 50 unit subcut BID 06/25/22 07/05/22 History (3 mL) subcutaneous pen (Levemir FlexPen) krill 500 mg-omega-3 150 mg-dha 45 1 cap PO QDAY 06/25/22 07/05/22 History mg-epa 75 nw-qozhofk-woeny capsule (krill oil) metoprolol tartrate 25 mg tablet 25 mg PO BID 06/25/22 07/05/22 History olmesartan 20 1 tab PO QDAY 06/25/22 07/01/22 History mg-hydrochlorothiazide 12.5 mg tablet (Benicar HCT) omeprazole 20 mg capsule,delayed 20 mg PO QDAY 06/25/22 07/05/22 History release Allergies Allergy/AdvReac Type Severity Reaction Status Date / Time No Known Drug Allergies Allergy Verified 07/05/22 14:50 Physical Examination Vital Signs Vital signs: Temp Pulse Resp BP Pulse Ox O2 Del Method 98.4 F 98 H 14 130/79 98 Room Air 07/06/22 07:50 07/06/22 07:50 07/06/22 07:50 07/06/22 07:50 07/06/22 07:50 07/06/22 07:50 General physical appearance General physical exam: well developed, well nourished, no distress, severe distress, chronically ill and obese (Morbid obesity and wheelchair for mobility. ) Eyes Eye exam: PERRL ENT ENT exam: normal pinna, normal mucosa and no congestion Head Head exam IM: Present atraumatic and normocephalic Neck Neck exam: no masses and no venous distension Cardiovascular Cardiovascular exam IM: Present normal rate and rhythm Respiratory Respiratory exam: normal expansion, normal respiratory effort and clear to auscultation Abdomen Abdomen: Present soft, non tender and bowel sounds Integumentary Integumentary: Present other (DTI with black eschar RIGHT posterior heel, pretreated with collagenase ointment. There is periwound cellulitis and e rythema, redness for 1-2 CM. ) Neurologic Neurologic: Present normal coordination and other (Diabetes with Peripheral neuropathy. ) Musculoskeletal Musculoskeletal: Present other (Wheel chair trasportation. Prior LEFT BKA and amputations of both hands distal fingers 3/4. ) Psychiatric Psychiatric: Present oriented to time, oriented to person, oriented to place, speech is normal, memory intact and other (Motivated and has strong family support. ) Additional Findings Additional exam: Reviewed lab results and imaging studies. Results Labs 07/06/22 05:26 07/06/22 05:26 Labs: Abnormal lab results 07/05/22 07/05/22 07/05/22 Range/Units 16:30 16:30 16:39 WBC 11.3 H (4.5-11.0) K/mcL RBC 4.29 L (4.63-6.08) M/mcL Hgb 12.3 L (13.7-17.5) g/dL Hct 38.1 L (40.1-51.0) % POC Hct 37.0 L (41-55) Immature Gran % (Auto) 0.6 H (0.0-0.5) % Lymph % (Auto) 10.9 L (15.5-49.0) % Lymph # (Auto) 1.23 L (1.50-4.80) K/mcL Cooper # (Auto) 0.96 H (0.10-0.90) K/mcL Immature Gran # 0.07 H (0.00-0.05) K/mcl Absolute Neutrophils 8.80 H (1.80-8.00) K/mcL ESR 73 H (0-20) mm/hr Sodium (133-145) mmol/L POC BUN 34 H (6-20) BUN (6-20) mg/dL Glucose (70-105) mg/dL POC Glucose 155 H (70-105) Hemoglobin A1c (4.0-6.0) % Hgb Alkaline Phosphatase (39-117) U/L C-Reactive Protein 4.30 H (0.03-0.80) mg/dL Triglycerides (<150) mg/dL 07/06/22 07/06/22 Range/Units 05:26 05:26 WBC 11.8 H (4.5-11.0) K/mcL RBC 4.32 L (4.63-6.08) M/mcL Hgb 12.5 L (13.7-17.5) g/dL Hct 38.0 L (40.1-51.0) % POC Hct (41-55) Immature Gran % (Auto) (0.0-0.5) % Lymph % (Auto) 13.8 L (15.5-49.0) % Lymph # (Auto) (1.50-4.80) K/mcL Cooper # (Auto) 0.93 H (0.10-0.90) K/mcL Immature Gran # 0.06 H (0.00-0.05) K/mcl Absolute Neutrophils 8.92 H (1.80-8.00) K/mcL ESR (0-20) mm/hr Sodium 131 L (133-145) mmol/L POC BUN (6-20) BUN 28 H (6-20) mg/dL Glucose 110 H (70-105) mg/dL POC Glucose (70-105) Hemoglobin A1c 8.5 H (4.0-6.0) % Hgb Alkaline Phosphatase 142 H (39-117) U/L C-Reactive Protein (0.03-0.80) mg/dL Triglycerides 166 H (<150) mg/dL Diabetes panel 07/06/22 Range/Units 05:26 Sodium 131 L (133-145) mmol/L Potassium 4.4 (3.3-5.1) mmol/L Chloride 97 (96-108) mmol/L Carbon Dioxide 23 (22-30) mmol/L BUN 28 H (6-20) mg/dL Creatinine 0.8 (0.7-1.2) mg/dL Glucose 110 H (70-105) mg/dL Hemoglobin A1c 8.5 H (4.0-6.0) % Hgb Calcium 9.4 (8.6-10.4) mg/dL AST 15 (<40) U/L ALT 13 (<40) U/L Alkaline Phosphatase 142 H (39-117) U/L Total Protein 7.2 (5.9-8.4) gm/dL Albumin 3.6 (3.2-5.2) gm/dL Triglycerides 166 H (<150) mg/dL Calcium panel 07/06/22 Range/Units 05:26 Calcium 9.4 (8.6-10.4) mg/dL Phosphorus 3.5 (2.5-4.5) mg/dL Albumin 3.6 (3.2-5.2) gm/dL Pituitary panel 07/06/22 Range/Units 05:26 Sodium 131 L (133-145) mmol/L Potassium 4.4 (3.3-5.1) mmol/L Chloride 97 (96-108) mmol/L Carbon Dioxide 23 (22-30) mmol/L BUN 28 H (6-20) mg/dL Creatinine 0.8 (0.7-1.2) mg/dL Glucose 110 H (70-105) mg/dL Calcium 9.4 (8.6-10.4) mg/dL Adrenal panel 07/06/22 Range/Units 05:26 Sodium 131 L (133-145) mmol/L Potassium 4.4 (3.3-5.1) mmol/L Chloride 97 (96-108) mmol/L Carbon Dioxide 23 (22-30) mmol/L BUN 28 H (6-20) mg/dL Creatinine 0.8 (0.7-1.2) mg/dL Glucose 110 H (70-105) mg/dL Calcium 9.4 (8.6-10.4) mg/dL Total Bilirubin 0.3 (0.1-1.0) mg/dL AST 15 (<40) U/L ALT 13 (<40) U/L Alkaline Phosphatase 142 H (39-117) U/L Total Protein 7.2 (5.9-8.4) gm/dL Albumin 3.6 (3.2-5.2) gm/dL All other labs normal. A/P Narrative A/P Narrative: Assessment: CSSSI Cellulitis RIGHT posterior heel foot. DTI Right posterior heel DFU Peripheral neuropathy DM2 HTN Prior LEFT BKA Prior distal amputations of bilateral hand 3/4 fingers. Needs surgical debridement, bone and tissue biopsy cultures. Plan of Treatment: Plan: Patient seen with Jennifer Graham RNhot press operator Nurse Property Custodian. Agree with current empiric IV antibiotics. Checked with OR. Full schedule today. For surgery tomorrow. Spoke with at length about procedure. Answered all his questions. Further recommendations as condition evolves. Time Spent With Patient Time: Total time spent is greater than 50% in coordination of care (as documented) at patient's floor/unit and/or counseling patient: Initial: Total time with patient: 55 - 74 minutes
--- NOTE | 2022-07-06 14:33 | Internal Med Progress Note ---
SUBJECTIVE Subjective Patient information: Note initiated : 07/06/22 at 2:28 pm Service Date, if different from initiated Date: [] Patient: Aravind Ashley 61 y/o M admitted on 07/05/22 for foot wound. Chief Complaint: [] Interval history: Mr. Ashley is a 61-year-old male with a history of insulin-dependent type 2 diabetes, hypertension, seizure disorder, GERD, obstructive sleep apnea, obesity, peripheral artery disease complicated by multiple amputations including a left BKA and several fingers presented to the ED at the recommendation of wound care for further evaluation of a right heel wound. The patient says that he first noticed the heel wound in May and it has progressively worsened. The patient follows in the wound care clinic and was supposed to have a debridement done by Dr. Bermudez on 07/07/2022. In the emergency department, the patient was afebrile, had mild leukocytosis, no evidence of sepsis however the patient does clearly have an infection in his right heel. CRP was 4.3, ESR 73. The patient says that he has had prior right lower extremity angiography which showed peripheral arterial disease however it was not amenable to correction by IR. He had a left BKA after developing a left foot infection a while ago. He says at that time he was septic and required transfer to higher level of care and ultimately received the BKA during the hospitalization. 07/06 No significant events overnight, stable glycemic control, hemoglobin A1c was 8.5. CTA right lower extremity showed right iliac femoral and popliteal inflow widely patent, right anterior tibial and posterior tibial arteries are patent to the foot level but riddled with multiple stenosis greater than 50%, the right peroneal artery is occluded in the distal calf. Continues on broad-spectrum antibiotics, surgery planned for tomorrow. Physical exam Head: Atraumatic, normal inspection. Eyes: normal appearance, no scleral icterus. Neck: full ROM Respiratory: no respiratory distress. Cardiovascular: normal rate and rhythm, S1, S2. GI/Abdominal: soft, nontender, no guarding. Extremities: Right heel wound, left BKA, multiple prior upper extremity digit amputations. Neurological: CN II-XII intact, intact motor, intact sensation. Psychiatric: normal mood. Skin: Eschar over right heel wound, surrounding erythema, warmth and tenderness consistent with cellulitis. Constitutional Vitals: Vital Signs Temp Pulse Resp BP Pulse Ox O2 Del Method 98.1 F 94 H 14 91/78 98 Room Air 07/06/22 12:00 07/06/22 12:00 07/06/22 12:00 07/06/22 12:00 07/06/22 12:00 07/06/22 12:00 Period Temp Pulse Resp BP Sys/Kay Pulse Ox O2 Del Method O2 Flow Rate Last 24 Hr 97.2 F-98.8 F 89-98 12-18 91-144/72-90 94-100 Room Air-Room Air Intake and Output 07/06/22 07/06/22 07/06/22 03:59 11:59 19:59 Intake Total 086 670 3885 Output Total 1050 Balance -472 680 8133 Weight 137.166 kg Intake & Output: Intake & Output 07/06/22 07/06/22 07/06/22 03:59 11:59 19:59 Intake Total 982 789 4016 Output Total 1050 Balance -510 284 4322 Weight 137.166 kg Intake: IV 550 50 550 Zosyn 4.5 gm In Dextrose 5% in 50 50 50 Water 50 ml @ 100 mls/hr IV Q8H KAREL Rx#:[id number] Vancomycin 2,000 mg In Sodium 500 500 Chloride 0.9% 500 ml @ 250 mls/ hr IV Q12H KAREL Rx#:[id number] Oral 250 120 680 Output: Void Amount 1050 Other: Meal Breakfast Lunch Percent of Meal Consumed 100% 100% Urine Appearance Clear Urine Color Yellow OBJ DATA Labs 07/06/22 05:26 07/06/22 05:26 Labs: Abnormal Lab Results 07/06/22 07/06/22 07/05/22 05:26 05:26 16:39 WBC 11.8 H RBC 4.32 L Hgb 12.5 L Hct 38.0 L POC Hct 37.0 L Immature Gran % (Auto) Lymph % (Auto) 13.8 L Lymph # (Auto) [place] # (Auto) 0.93 H Immature Gran # 0.06 H Absolute Neutrophils 8.92 H ESR Sodium 131 L POC BUN 34 H BUN 28 H Glucose 110 H POC Glucose 155 H Hemoglobin A1c 8.5 H Alkaline Phosphatase 142 H C-Reactive Protein Triglycerides 166 H 07/05/22 07/05/22 16:30 16:30 WBC 11.3 H RBC 4.29 L Hgb 12.3 L Hct 38.1 L POC Hct Immature Gran % (Auto) 0.6 H Lymph % (Auto) 10.9 L Lymph # (Auto) 1.23 L [place] # (Auto) 0.96 H Immature Gran # 0.07 H Absolute Neutrophils 8.80 H ESR 73 H Sodium POC BUN BUN Glucose POC Glucose Hemoglobin A1c Alkaline Phosphatase C-Reactive Protein 4.30 H Triglycerides Meds: Medications Acetaminophen (Acetaminophen 325 Mg Tablet) 650 mg PO Q6HP PRN; Protocol PRN Reason: Per Pain Protocol/Fever > 101 Hydrocodone Bitart/Acetaminophen (Hydrocodone/Apap 5/325mg Tablet) 1 tab PO Q4HP PRN; Protocol PRN Reason: Per Pain Protocol Amlodipine Besylate (Amlodipine 5 Mg Tablet) 5 mg PO QDAY [facility] Last Admin: 07/06/22 08:27 Dose: 5 mg Aspirin (Aspirin 81 Mg Tab.Chew) 81 mg PO QDAY [facility] Last Admin: 07/06/22 08:28 Dose: Not Given Atorvastatin Calcium (Atorvastatin 40 Mg Tablet) 40 mg PO QHS [facility] Dextrose (Dextrose 50% 50 Ml Vial) 0 ml IV UD PRN PRN Reason: Per Sliding Scale Diagnostic Test (Pha) (Accu-Chek 1 Each Strip) 1 each FS ACHS [facility] Last Admin: 07/06/22 11:26 Dose: 1 each Docusate Sodium (Docusate Sodium 100 Mg Capsule) 100 mg PO BID [facility] Last Admin: 07/06/22 08:27 Dose: 100 mg Gabapentin (Gabapentin 300 Mg Capsule) 300 mg PO QHS [facility] Last Admin: 07/05/22 22:33 Dose: 300 mg Glucose (Dextrose 31 Gm Oral.Susp) 15 gm PO PRN PRN PRN Reason: Hypoglycemia Hydrochlorothiazide (Hydrochlorothiazide 12.5 Mg Capsule) 12.5 mg PO DAILY [facility] Last Admin: 07/06/22 08:27 Dose: 12.5 mg Hydromorphone HCl (Hydromorphone 0.5 Mg/0.5 Ml Syringe) 0.5 mg IV Q2HP PRN; Protocol PRN Reason: Per Pain Protocol Piperacillin Sod/Tazobactam (Sod 4.5 gm/ Dextrose) 50 mls @ 100 mls/hr IV Q8H [facility]; Protocol Last Infusion: 07/06/22 13:05 Dose: Infused Vancomycin HCl 2,000 mg/ (Sodium Chloride) 500 mls @ 250 mls/hr IV Q12H [facility] Last Infusion: 07/06/22 12:15 Dose: Infused Insulin Glargine (Insulin Glargine, Human 1 Unit/0.01 Ml) 40 unit SQ HS [facility] Last Admin: 07/05/22 21:54 Dose: 40 units Insulin Human Lispro (Insulin Lispro 1 Unit/0.01 Ml Unit) 0 unit SQ ACHS [facility]; Protocol Last Admin: 07/06/22 11:55 Dose: 1 units Insulin Human Lispro (Insulin Lispro 1 Unit/0.01 Ml Unit) 0 unit SQ AC [facility] Last Admin: 07/06/22 11:56 Dose: 4 units Levothyroxine Sodium ([facility] 100 Mcg Tablet) [facility] Admin[facility] 07/06/22 08:27 Dose: 200 mcg Levothyroxine Sodium (Levothyroxine 50 Mcg Tablet) [facility] Last Admin: 07/06/22 08:27 Dose: 50 mcg Loratadine (Loratadine 10 Mg Tablet) 10 mg PO DAILY [facility] Metoprolol Tartrate (Metoprolol Tartrate 25 Mg Tablet) 25 mg PO BID [facility] Last Admin: 07/06/22 08:27 Dose: 25 mg Olmesartan (Olmesartan Medoxomil 20 Mg Tablet) 40 mg PO DAILY [facility] Last Admin: 07/06/22 08:28 Dose: 40 mg Omeprazole ([facility] 20 Mg [facility]apsule) [facility] Last Admin: 07/06/22 07:25 Dose: 20 mg Ondansetron HCl (Ondansetron 4 Mg/2 Ml Vial) 4 mg IV Q6HP PRN PRN Reason: Nausea And Vomiting Briviact 100mg Tab 1 dose PO BID [facility] Last Admin: 07/06/22 08:28 Dose: Not Given Senna (Sennosides 1 Tablet) 2 tab PO [facility] Last Admin: 07/05/22 21:41 Dose: 2 tab Sodium Chloride (0.9 % Sodium Chloride 10 Ml Syringe) 10 ml IV Q8 [facility] Last Admin: 07/06/22 12:32 Dose: 10 ml Vancomycin HCl (Vancomycin Per Pharmacy) 1 order IV UD [facility]; Protocol Venlafaxine HCl (Venlafaxine 150 Mg Cap.Xl.24h) 150 mg PO DAILY [facility] Last Admin: 07/06/22 08:27 Dose: 150 mg Venlafaxine HCl (Venlafaxine 75 Mg Cap.Xl.24h) 75 mg PO DAILY [facility] Last Admin: 07/06/22 08:27 Dose: 75 mg A/P Narrative A/P Narrative: Assessment: 61-year-old male with a history of insulin-dependent type 2 diabetes, hypertension, seizure disorder, GERD, obstructive sleep apnea, obesity, peripheral artery disease complicated by multiple amputations including a left BKA and several fingers now admitted for a right heel infection and cellulitis. #Right heel diabetic foot infection and cellulitis #Type 2 diabetes mellitus complicated by neuropathy #Peripheral artery disease #Essential hypertension #Seizure disorder #GERD #Obstructive sleep apnea on CPAP #Obesity BMI 39 #History of left BKA and multiple finger amputations Plan -Continue vancomycin IV per pharmacy and Zosyn. -Follow-up blood cultures x2 from the ED. -Dr. Keenan will obtain surgical cultures during surgery. -Lantus 50 units at bedtime, prandial Humalog 1unit to 6 g carb ratio, correction Humalog SSI low-dose. -Analgesics as needed. -Wound cares per Dr. Sierra. -Continue home Norvasc, aspirin, Lipitor, gabapentin, levothyroxine, Claritin, Lopressor, olmesartan hand, omeprazole, Brivaracetam. -Consistent carbohydrate diet, n.p.o. after midnight. -CPAP at bedtime. -CODE STATUS: Full [facility]: Plan: Patient seen with Jennifer Graham RNsenior auditor Nurse Automobile Assembly Supervisor. Agree with current empiric IV antibiotics. Checked with OR. Full schedule today. For surgery tomorrow. Spoke with at length about procedure. Answered all his questions. Further recommendations as condition evolves. Time Spent With Patient Time: Total time spent is greater than 50% in coordination of care (as documented) at patient's floor/unit and/or counseling patient:
[2022-07-06] MEDS: ATORVASTATIN 40 MG TABLET PO SCH (20:48)
[2022-07-06] MEDS: SENNOSIDES 1 TABLET PO SCH (20:48)
[2022-07-06] MEDS: GABAPENTIN 300 MG CAPSULE PO SCH (20:48)
[2022-07-06] MEDS: INSULIN GLARGINE, HUMAN 1 UNIT/0.01 ML SQ SCH (20:57)
[2022-07-07] MEDS: PIPERACILLIN SODIUM/TAZOBACTAM 4.5 GM in DEXTROSE 5% IN WATER 50 ML IV SCH ×3 (04:12→20:19)
[2022-07-07] MEDS: 0.9 % SODIUM CHLORIDE 10 ML SYRINGE IV SCH ×5 (04:13→20:29)
[2022-07-07 06:25] LABS: Basophils # (Auto) 0.07 K/mcL (0.00-0.30); Basophils % (Auto) 0.7 % (0.0-2.0); Eosinophils # (Auto) 0.26 K/mcL (0.00-0.70); Eosinophils % (Auto) 2.6 % (0.0-7.0); Hemoglobin 11.5 g/dL (13.7-17.5); Lymphocytes # (Auto) 1.32 K/mcL (1.50-4.80); Lymphocytes % (Auto) 13.1 % (15.5-49.0); Mean Cell Volume 87.1 fL (80.0-100.0); Mean Corpuscular HGB Conc 32.9 g/dL (31.0-36.0); Mean Platelet Volume 9.5 fL (8.8-12.5); Monocytes # (Auto) 0.92 K/mcL (0.10-0.90); Monocytes % (Auto) 9.1 % (1.0-12.0); Neutrophils % (Auto) 73.9 % (38.0-78.0); Platelet Count 309 K/mcL (140-440); RBC 4.02 M/mcL (4.63-6.08); Red Cell Distribution Width 12.2 % (11.5-14.5); WBC 10.1 K/mcL (4.5-11.0)
[2022-07-07 07:06] LABS: ALT/SGPT 11 U/L (<40); AST/SGOT 13 U/L (<40); Albumin 3.5 gm/dL (3.2-5.2); Albumin/Globulin Ratio 1.1 (1.0-2.3); Alkaline Phosphatase 127 U/L (39-117); Bilirubin,Direct < 0.2 mg/dL (0-0.3); Bilirubin,Total 0.4 mg/dL (0.1-1.0); Blood Urea Nitrogen 21 mg/dL (6-20); Carbon Dioxide 25 mmol/L (22-30); Chloride 99 mmol/L (96-108); Globulin 3.3 gm/dL (2.2-3.7); Glomerular Filtration Rate 93; Glucose 138 mg/dL (70-105); Lactate Dehydrogenase 162 U/L (135-225); Phosphorous 3.2 mg/dL (2.5-4.5); Triglycerides 143 mg/dL (<150)
[2022-07-07] MEDS ORDERED: IPRATROPIUM/ALBUTEROL 3 ML AMPUL.NEB NEB PRN ×2 (07:30→10:16)
[2022-07-07] MEDS ORDERED: SCOPOLAMINE 1 PATCH PATCH TOPICAL PRN (07:30)
[2022-07-07] MEDS: INSULIN LISPRO 1 UNIT/0.01 ML UNIT SQ SCH ×7 (07:31→21:29)
[2022-07-07] MEDS: METOPROLOL TARTRATE 25 MG TABLET PO SCH ×2 (07:36→21:08)
[2022-07-07] MEDS: HYDROCHLOROTHIAZIDE 12.5 MG CAPSULE PO SCH (07:36)
[2022-07-07] MEDS: amLODIPine 5 MG TABLET PO SCH (07:36)
[2022-07-07] MEDS: LEVOTHYROXINE 100 MCG TABLET PO SCH (07:37)
[2022-07-07] MEDS: LEVOTHYROXINE 50 MCG TABLET PO SCH (07:37)
[2022-07-07] MEDS: OMEPRAZOLE 20 MG CAPSULE PO SCH (07:37)
[2022-07-07] MEDS ORDERED: fentaNYL 100 MCG/2 ML VIAL IV ONE (09:46)
[2022-07-07] MEDS ORDERED: MAGNESIUM SULFATE 2 GM/50 ML BAG IV ONE (09:46)
[2022-07-07] MEDS ORDERED: PROPOFOL 200 MG/20 ML VIAL IV ONE (09:46)
[2022-07-07] MEDS ORDERED: LIDOCAINE HCL/PF 100 MG/5 ML SYRINGE IV ONE (09:46)
[2022-07-07] MEDS ORDERED: DEXAMETHASONE 10 MG/ML VIAL ONE (09:46)
[2022-07-07] MEDS ORDERED: KETAMINE 50 MG/ML Syringe (ANEST) IV ONE (09:46)
[2022-07-07] MEDS ORDERED: ONDANSETRON 4 MG/2 ML VIAL ONE (09:46)
[2022-07-07] MEDS ORDERED: MIDAZOLAM 2 MG/2 ML VIAL ONE (09:46)
[2022-07-07] MEDS ORDERED: GLYCOPYRROLATE 0.2 MG/ML VIAL IV ONE (09:46)
[2022-07-07] MEDS ORDERED: GENTAMICIN SULFATE 800 MG/20 ML VIAL IR ONE (10:00)
[2022-07-07] MEDS ORDERED: PROMETHAZINE 25 MG/ML VIAL IV PRN (10:16)
[2022-07-07] MEDS ORDERED: MEPERIDINE 25 MG/ML VIAL IV PRN (10:16)
[2022-07-07] MEDS ORDERED: fentaNYL 100 MCG/2 ML VIAL IV PRN (10:16)
[2022-07-07] MEDS ORDERED: ONDANSETRON 4 MG/2 ML VIAL IV PRN (10:16)
[2022-07-07] MEDS: OLMESARTAN MEDOXOMIL 20 MG TABLET PO SCH (10:50)
[2022-07-07] MEDS: ASPIRIN 81 MG TAB.CHEW PO SCH ×2 (10:50→12:37)
[2022-07-07] MEDS: DOCUSATE SODIUM 100 MG CAPSULE PO SCH ×3 (10:50→20:28)
[2022-07-07] MEDS: VENLAFAXINE 150 MG CAP.XL.24H PO SCH ×2 (10:50→12:37)
[2022-07-07] MEDS: LORATADINE 10 MG TABLET PO SCH ×2 (10:50→12:37)
[2022-07-07] MEDS: VENLAFAXINE 75 MG CAP.XL.24H PO SCH ×2 (10:50→12:38)
[2022-07-07] MEDS: MUPIROCIN OINT 2% 22GM NARES SCH ×2 (10:50→21:07)
[2022-07-07] MEDS: BRIVIACT 100 MG PO SCH ×2 (10:53→21:07)
[2022-07-07] MEDS: VANCOMYCIN 2,000 MG in 0.9 % SODIUM CHLORIDE 500 ML IV SCH (10:54)
--- NOTE | 2022-07-07 11:13 | General Surgery Procedure Note ---
Date of procedure: Note initiated : 07/07/22 at 11:07 am Service Date, if different from initiated Date: [] Pre-op diagnosis: DTI / Neuropathic PU Right posterior heel Post-op diagnosis: same Procedure: Excision debridement. pulse lavage irrigation, BONE and soft tissue biopsy ans culture. Open packing. Findings: DFU / DTI Stage 4 involves bone and tendon. 6 x 6 x 2 CM Grafts/Implants: NONE Anesthesia: GLMA Surgeon: Reynaldo Sierra Estimated blood loss: 20 Description of procedure: Excision of necrotic tissue pulse lavage with gentamicin solution, bone and soft tissue biopsy and cultures Condition: stable Disposition: other (Spoke with patient's Simona [phone])
--- NOTE | 2022-07-07 11:25 | Internal Med Progress Note ---
SUBJECTIVE Subjective Patient information: Note initiated : 07/07/22 at 11:21 am Service Date, if different from initiated Date: [] Patient: Aravind Ashley 61 y/o M admitted on 07/05/22 for foot wound. Chief Complaint: [] Interval history: Mr. Ashley is a 61-year-old male with a history of insulin-dependent type 2 diabetes, hypertension, seizure disorder, GERD, obstructive sleep apnea, obesity, peripheral artery disease complicated by multiple amputations including a left BKA and several fingers presented to the ED at the [facility] for further evaluation of a right heel wound. The patient says that he first noticed the heel wound in May and it has progressively worsened. The patient follows in the wound care clinic and was supposed to have a debridement done by Dr. Bermudez on 07/07/2022. In the emergency department, the patient was afebrile, had mild leukocytosis, no evidence of sepsis however the patient does clearly have an infection in his right heel. CRP was 4.3, ESR 73. The patient says that he has had prior right lower extremity angiography which showed peripheral arterial disease however it was not amenable to correction by IR. He had a left BKA after developing a left foot infection a while ago. He says at that time he was septic and required transfer to higher level of care and ultimately received the BKA during the hospitalization. 07/06 No significant events overnight, stable glycemic control, hemoglobin A1c was 8.5. CTA right lower extremity showed right iliac femoral and popliteal inflow widely patent, right anterior tibial and posterior tibial arteries are patent to the foot level but riddled with multiple stenosis greater than 50%, the right peroneal artery is occluded in the distal calf. Continues on broad-spectrum antibiotics, surgery planned for tomorrow. 07/07 Stable overnight, patient was taken to the OR for debridement of his heel wound earlier today. Discussed with Tuesday after surgery, Dr. Bermudez he thinks there may be osteomyelitis of the calcaneus bone. Infectious disease consulted. Continues on vancomycin IV dosed by pharmacy and Zosyn. Physical exam Head: Atraumatic, normal inspection. Eyes: normal appearance, no scleral icterus. Neck: full ROM Respiratory: no respiratory distress. Cardiovascular: normal rate and rhythm, S1, S2. GI/Abdominal: soft, nontender, no guarding. Extremities: Right heel covered with clean bandage. Neurological: CN II-XII intact, intact motor, intact sensation. Psychiatric: normal mood. Constitutional Vitals: Vital Signs Temp Pulse Resp BP Pulse Ox O2 Del Method O2 Flow Rate 97.8 F 83 7 L 150/80 95 Room Air 6 07/07/22 11:04 07/07/22 11:04 07/07/22 11:04 07/07/22 11:01 07/07/22 11:04 07/07/22 07:46 07/07/22 10:34 Period Temp Pulse Resp BP Sys/Kay Pulse Ox O2 Del Method O2 Flow Rate Last 24 Hr 97.1 F-98.5 F 82-98 0-17 91-150/70-85 92-100 Room Air-Room Air 6 Intake and Output 07/06/22 07/07/22 07/07/22 19:59 03:59 11:59 Intake Total 2030 1125 650 Output Total 275 1450 710 Balance 1755 -325 -60 Weight 139.797 kg Intake & Output: Intake & Output 07/06/22 07/07/22 07/07/22 19:59 03:59 11:59 Intake Total 2030 1125 650 Output Total 275 1450 710 Balance 1755 -325 -60 Weight 139.797 kg Intake: IV 550 550 50 Zosyn 4.5 gm In Dextrose 5% in 50 50 50 Water 50 ml @ 100 mls/hr IV Q8H KAREL Rx#:[id number] Vancomycin 2,000 mg In Sodium 500 500 Chloride 0.9% 500 ml @ 250 mls/ hr IV Q12H KAREL Rx#:[id number] Oral 1480 575 0 IV - Manual Only 600 Output: Void Amount 275 1450 700 Estimated Blood Loss 10 Other: Meal Lunch Percent of Meal Consumed 100% Urine Appearance Clear Clear Urine Color Yellow Yellow Yellow Stool Size Large Stool Color Brown Stool Consistency Soft # Bowel Movements 1 OBJ DATA Labs 07/07/22 05:07 07/07/22 05:07 Labs: Abnormal Lab Results 07/07/22 07/07/22 07/06/22 05:07 05:07 05:26 WBC RBC 4.02 L Hgb 11.5 L Hct 35.0 L POC Hct Immature Gran % (Auto) 0.6 H Lymph % (Auto) 13.1 L Lymph # (Auto) 1.32 L [place] # (Auto) 0.92 H Immature Gran # 0.06 H Absolute Neutrophils ESR Sodium 131 L POC BUN BUN 21 H 28 H Glucose 138 H 110 H POC Glucose Hemoglobin A1c 8.5 H Alkaline Phosphatase 127 H 142 H C-Reactive Protein Triglycerides 166 H 07/06/22 07/05/22 07/05/22 05:26 16:39 16:30 WBC 11.8 H 11.3 H RBC 4.32 L 4.29 L Hgb 12.5 L 12.3 L Hct 38.0 L 38.1 L POC Hct 37.0 L Immature Gran % (Auto) 0.6 H Lymph % (Auto) 13.8 L 10.9 L Lymph # (Auto) 1.23 L [place] # (Auto) 0.93 H 0.96 H Immature Gran # 0.06 H 0.07 H Absolute Neutrophils 8.92 H 8.80 H ESR 73 H Sodium POC BUN 34 H BUN Glucose POC Glucose 155 H Hemoglobin A1c Alkaline Phosphatase C-Reactive Protein Triglycerides 07/05/22 16:30 WBC RBC Hgb Hct POC Hct Immature Gran % (Auto) Lymph % (Auto) Lymph # (Auto) [place] # (Auto) Immature Gran # Absolute Neutrophils ESR Sodium POC BUN BUN Glucose POC Glucose Hemoglobin A1c Alkaline Phosphatase C-Reactive Protein 4.30 H Triglycerides Meds: Medications Acetaminophen (Acetaminophen 325 Mg Tablet) 650 mg PO Q6HP PRN; Protocol PRN Reason: Per Pain Protocol/Fever > 101 Last Admin: 07/06/22 17:49 Dose: 650 mg Hydrocodone Bitart/Acetaminophen (Hydrocodone/Apap 5/325mg Tablet) 1 tab PO Q4HP PRN; Protocol PRN Reason: Per Pain Protocol Albuterol/Ipratropium (Ipratropium/Albuterol 3 Ml Ampul.Neb) 3 ml NEB ONCE PRN PRN Reason: Shortness Of Breath Stop: 07/07/22 17:30 Amlodipine Besylate (Amlodipine 5 Mg Tablet) 5 mg PO QDAY [facility] Last Admin: 07/07/22 07:36 Dose: 5 mg Aspirin (Aspirin 81 Mg Tab.Chew) 81 mg PO QDAY [facility] Last Admin: 07/07/22 10:50 Dose: Not Given Atorvastatin Calcium (Atorvastatin 40 Mg Tablet) 40 mg PO QHS [facility] Last Admin: 07/06/22 20:48 Dose: 40 mg Dextrose (Dextrose 50% 50 Ml Vial) 0 ml IV UD PRN PRN Reason: Per Sliding Scale Diagnostic Test (Pha) (Accu-Chek 1 Each Strip) 1 each FS ACHS [facility] Last Admin: 07/07/22 07:30 Dose: 1 each Diagnostic Test (Pha) (Accu-Chek 1 Each Strip) 1 each FS UD PRN PRN Reason: Blood Sugar - Low Stop: 07/07/22 15:30 Docusate Sodium (Docusate Sodium 100 Mg Capsule) 100 mg PO BID [facility] Last Admin: 07/07/22 10:50 Dose: Not Given Gabapentin (Gabapentin 300 Mg Capsule) 300 mg PO QHS [facility] Last Admin: 07/06/22 20:48 Dose: 300 mg Glucose (Dextrose 31 Gm Oral.Susp) 15 gm PO PRN PRN PRN Reason: Hypoglycemia Hydrochlorothiazide (Hydrochlorothiazide 12.5 Mg Capsule) 12.5 mg PO DAILY [facility] Last Admin: 07/07/22 07:36 Dose: 12.5 mg Hydromorphone HCl (Hydromorphone 0.5 Mg/0.5 Ml Syringe) 0.5 mg IV Q2HP PRN; Protocol PRN Reason: Per Pain Protocol Piperacillin Sod/Tazobactam (Sod 4.5 gm/ Dextrose) 50 mls @ 100 mls/hr IV Q8H [facility]; Protocol Last Infusion: 07/07/22 04:45 Dose: Infused Vancomycin HCl 1,500 mg/ (Sodium Chloride) 500 mls @ 333.3 mls/hr IV Q12H [facility] Insulin Glargine (Insulin Glargine, Human 1 Unit/0.01 Ml) 40 unit SQ HS [facility] Last Admin: 07/06/22 20:57 Dose: 40 units Insulin Human Lispro (Insulin Lispro 1 Unit/0.01 Ml Unit) 0 unit SQ [facility]; Protocol Last Admin: 07/07/22 07:31 Dose: Not Given Insulin Human Lispro (Insulin Lispro 1 Unit/0.01 Ml Unit) 0 unit SQ AC [facility] Last Admin: 07/07/22 07:31 Dose: Not Given Levothyroxine Sodium (Levothyroxine 100 Mcg Tablet) 200 mcg PO QAMAC [facility] Last Admin: 07/07/22 07:37 Dose: Not Given Levothyroxine Sodium (Levothyroxine 50 Mcg Tablet) 50 mcg PO QAMAC [facility] Last Admin: 07/07/22 07:37 Dose: Not Given Loratadine (Loratadine 10 Mg Tablet) 10 mg PO DAILY [facility] Last Admin: 07/07/22 10:50 Dose: Not Given Metoprolol Tartrate (Metoprolol Tartrate 25 Mg Tablet) 25 mg PO BID [facility] Last Admin: 07/07/22 07:36 Dose: 25 mg Mupirocin (Mupirocin Oint 2% 22gm) 1 dose NARES BID [facility] Last Admin: 07/07/22 10:50 Dose: Not Given Olmesartan (Olmesartan Medoxomil 20 Mg Tablet) 40 mg PO DAILY [facility] Last Admin: 07/07/22 10:50 Dose: Not Given Omeprazole (Omeprazole 20 Mg Capsule) 20 mg PO [facility] Last Admin: 07/07/22 07:37 Dose: Not Given Ondansetron HCl (Ondansetron 4 Mg/2 Ml Vial) 4 mg IV Q6HP PRN PRN Reason: Nausea And Vomiting Briviact 100mg Tab 1 dose PO BID [facility] Last Admin: 07/07/22 10:53 Dose: Not Given Scopolamine (Scopolamine 1 Patch Patch) 1 patch TOPICAL PREOP PRN PRN Reason: Nausea And Vomiting Stop: 07/07/22 15:30 Senna (Sennosides 1 Tablet) 2 tab PO HS [facility] Last Admin: 07/06/22 20:48 Dose: 2 tab Sodium Chloride (0.9 % Sodium Chloride 10 Ml Syringe) 10 ml IV Q8 [facility] Last Admin: 07/07/22 04:13 Dose: 10 ml Sodium Chloride (0.9 % Sodium Chloride 10 Ml Syringe) 10 ml IV Q8 [facility] Vancomycin HCl (Vancomycin Per Pharmacy) 1 order IV UD [facility]; Protocol Venlafaxine HCl (Venlafaxine 150 Mg Cap.Xl.24h) 150 mg PO DAILY [facility] Last Admin: 07/07/22 10:50 Dose: Not Given Venlafaxine HCl (Venlafaxine 75 Mg Cap.Xl.24h) 75 mg PO DAILY [facility] Last Admin: 07/07/22 10:50 Dose: Not Given A/P Narrative A/P Narrative: Assessment: 61-year-old male with a history of insulin-dependent type 2 diabetes, hypertension, seizure disorder, GERD, obstructive sleep apnea, obesity, peripheral artery disease complicated by multiple amputations including a left BKA and several fingers now admitted for a right heel infection and cellulitis. #Right heel diabetic foot infection and cellulitis status post I&D with deep tissue cultures on 07/07/2022 #Type 2 diabetes mellitus complicated by neuropathy #Peripheral artery disease #Essential hypertension #Seizure disorder #GERD #Obstructive sleep apnea on CPAP #Obesity BMI 39 #History of left BKA and multiple finger amputations Plan -Continue vancomycin IV per pharmacy and Zosyn. -Infectious disease consulted. -Follow-up deep tissue cultures obtained in the OR. -Follow-up blood cultures x2 from the ED currently showing NGTD. -Wound care surgery following, Tuesday. -Lantus 50 units at bedtime, prandial Humalog 1unit to 6 g carb ratio, correction Humalog SSI low-dose. -Analgesics as needed. -Continue home Norvasc, aspirin, Lipitor, gabapentin, levothyroxine, Claritin, Lopressor, olmesartan hand, omeprazole, Brivaracetam. -Consistent carbohydrate diet, n.p.o. after midnight. -CPAP at bedtime. -CODE STATUS: Full -Disposition: Inpatient MedSurg, awaiting ID consult for recommendations regardi ng antibiotic treatment. Anticipate the patient will discharge to home when stable and an antibiotic treatment plan is in place. Plan of Treatment: Plan: Patient seen with Jennifer Graham RNinvestigation clerk Nurse Watch Mechanic. Agree with current empiric IV antibiotics. Checked with OR. Full schedule today. For surgery tomorrow. Spoke with at length about procedure. Answered all his questions. Further recommendations as condition evolves. Time Spent With Patient Time: Total time spent is greater than 50% in coordination of care (as documented) at patient's floor/unit and/or counseling patient:
--- NOTE | 2022-07-07 13:12 | Infectious Disease Consult ---
Telemedicine Intake Start Time: 01:10 (PM PST ) End Time: 01:50 (PM PST ) Consent for assessment and treatment to occur via virtual technology obtained from: Patient Location of Provider: Home Patient location: Med/Surg Unit [facility] Date of Consult Consult Date: 07/07/22 Requesting physician: Ishan Canada Primary Care Provider: Josiah Espinosa Consult Narrative Patient Information: Note initiated : 07/07/22 at 1:08 pm This is a 61y/o male pmhx HTN, DM s/p left BKA, HTN, HLD, hypothyroidism, seizure disorder, GERD, LEONARD, obesity, PAD complicated by multiple amputations including a left BKA and several fingers admitted on 07/05 after being evaluated by wound care nurse at home with concern of right heel infection after finding malodorous wound with associated erythema. Upon admission, pt was afebrile with stable vital signs. On labs, with mild leukocytosis (11.8k) and increased inflammatory markers (ESR 73, CRP 4.70). Right foot Xray showing4 cm ulceration in the plantar soft tissues over the calcaneus-new from prior exam. No evidence of underlying osteomyelitis. Pt has prior hx of MSSA growing in left foot, Bacteroides bacteremia, and Prevotella species growing from wound. Currently admitted on IV Vancomycin + Zosyn. Patient was seen by cannon fire direction specialist found with right heel black eschar, with DTI stage 4 involving bone and tendon. Today, underwent OR debridement with bone and wound cultures today. Now consulted to ID service for further antimicrobial recommendations. Reason for consult: nonhealing right heel wound concerning for osteomyelitis cc:: CC: Jd Traore MD Constitutional Constitutional: Present as per HPI EENT Additional comments: denied Cardiovascular Additional comments: denies Respiratory Additional comments: denies Gastrointestinal Additional comments: denies Genitourinary Additional comments: denies Integumentary Integumentary: Present skin ulcer and wounds (refers ongoing right heel open skin since June 21, worsening redness and malodorous smell recently ) Neurological Additional comments: denies Psychiatric Additional comments: denies Hematologic/Lymphatic Additional comments: denies Allergic/Immunologic Additional comments: denies PFSH PFSH All Active Problems (Updated 07/07/22 @ 13:48 by Mercy Wleler MD) Cellulitis of right foot (Acute) Non-healing open wound of right heel (Acute) Cellulitis (Acute) Pes planus of left foot (Chronic) Insomnia, persistent (Chronic) Allergic rhinitis (Chronic) Noncompliance with therapeutic plan (Chronic) Left ventricular hypertrophy (Chronic) Moderate recurrent major depression (Chronic) Pure hypercholesterolemia, unspecified (Chronic) Hypothyroidism (Chronic) Hypertension (Chronic) Poor peripheral circulation (Chronic) Seizure disorder (Chronic) Hearing loss (Chronic) Vitamin D deficiency (Chronic) Soft tissue mass (Chronic) Decubitus ulcer, heel (Chronic) History of left below knee amputation (Chronic) Diabetic neuropathy (Chronic) Diabetic foot ulcer (Chronic) Body mass index 40.0-44.9, adult (Chronic) Morbid obesity due to excess calories (Chronic) Abrasion of right index finger, initial encounter (Chronic) LEONARD (obstructive sleep apnea) (Chronic) Burn (Chronic) Osteomyelitis of foot, left, acute (Chronic) Sepsis (Chronic) Type 2 diabetes mellitus (Chronic) Acute hyperglycemia (Chronic) Pain of left heel (Chronic) Finger infection (Chronic) Syncope (Chronic) COVID-19 (Chronic) Sprain and strain of wrist (Chronic) Fall (Chronic) Medical History Abrasion of right index finger, initial encounter Acute hyperglycemia Allergic rhinitis Body mass index 40.0-44.9, adult Burn COVID-19 Decubitus ulcer, heel Diabetic foot ulcer Diabetic neuropathy Fall Finger infection Hearing loss History of left below knee amputation Hypertension Hypothyroidism Insomnia, persistent Left ventricular hypertrophy Moderate recurrent major depression Morbid obesity due to excess calories Noncompliance with therapeutic plan LEONARD (obstructive sleep apnea) Osteomyelitis of foot, left, acute Pain of left heel Pes planus of left foot Poor peripheral circulation Pure hypercholesterolemia, unspecified Seizure disorder Sepsis Soft tissue mass Sprain and strain of wrist Syncope Type 2 diabetes mellitus Vitamin D deficiency Surgical History History of ankle surgery (05/08/21) Left ankle break with repair History of cataract surgery (~2015) History of eye surgery Right eye -- correct bleeding blood vessel due to DM -- Dr. Bañuelos History of eye surgery (04/12/17) Reattachment of retina right eye History of eye surgery (01/31/18) Removal of oil in right eye -- Dr. Brown History of hand surgery (~2009) Left 5th finger (post fx) -- Dr. Roe History of left lower extremity amputation (~08/2021) Hx of LASIK (~06/2017) Right eye Hx of surgical amputation of finger (~2018) Partial amputation left middle finger due to bone infection Hx of surgical amputation of finger (~2020) Partial amputation right middle finger Family History Father Prostate cancer Throat cancer Social History marital status: occupational status: disabled physical activity: none smoking status: Never smoker alcohol intake frequency: does not drink substance use type: does not use MEDS/ALLERGIES Home Medications and Allergies Home Medications Medication Instructions Recorded Confirmed Type atorvastatin 20 mg tablet 40 mg PO QHS 01/29/20 07/05/22 History melatonin 10 mg disintegrating 10 mg PO QHS 01/29/20 07/05/22 History tablet metformin 1,000 mg tablet 1,000 mg PO BID 01/29/20 07/05/22 History venlafaxine 150 mg 225 mg PO QAM 01/29/20 07/05/22 History capsule,extended release 24 hr (Effexor XR) amlodipine 5 mg tablet 5 mg PO QDAY 07/28/21 07/05/22 History aspirin 81 mg capsule 81 mg PO QDAY 07/28/21 07/05/22 History brivaracetam 100 mg tablet 100 mg PO BID 07/28/21 07/05/22 History (Briviact) cholecalciferol (vitamin D3) 125 150 mcg PO QDAY supplement 07/28/21 07/05/22 History mcg (5,000 unit) tablet (Vitamin D3) gabapentin 300 mg capsule 300 mg PO TID 07/28/21 07/07/22 History levothyroxine 200 mcg tablet 200 mcg PO QDAY 07/28/21 07/05/22 History levothyroxine 50 mcg capsule 50 mcg PO QDAY 07/28/21 07/05/22 History loratadine 10 mg capsule 20 mg PO QAM 07/28/21 07/05/22 History wraigvdpnadm-iom-cnban acid-vit 1 tab PO DAILY supplement 07/28/21 07/05/22 History K-lycop 400 mcg-20 mcg-370 mcg tablet (Men's 50 Plus Multivitamin) ascorbic acid (vitamin C) 1,000 mg 1,000 mg PO QDAY 06/25/22 07/05/22 History tablet,extended release (C Complex) cinnamon bark 500 mg capsule 500 mg PO BID 06/25/22 07/05/22 History (Cinnamon) insulin detemir U-100 100 unit/mL 50 unit subcut BID 06/25/22 07/05/22 History (3 mL) subcutaneous pen (Levemir FlexPen) krill 500 mg-omega-3 150 mg-dha 45 1 cap PO QDAY 06/25/22 07/05/22 History mg-epa 75 [id number]-[id number] capsule (krill oil) metoprolol tartrate 25 mg tablet 25 mg PO BID 06/25/22 07/05/22 History omeprazole 20 mg capsule,delayed 20 mg PO QDAY 06/25/22 07/05/22 History release dulaglutide 0.75 mg/0.5 mL 0.75 mg subcut WEEKLY 07/07/22 07/07/22 History subcutaneous pen injector (Trulicity) olmesartan 40 1 tab PO QDAY 07/07/22 07/07/22 History mg-hydrochlorothiazide 12.5 mg tablet Allergies Allergy/AdvReac Type Severity Reaction Status Date / Time No Known Drug Allergies Allergy Verified 07/05/22 14:50 Physical Examination Vital Signs Vital signs: Temp Pulse Resp BP Pulse Ox O2 Del Method O2 Flow Rate 97.8 F 83 7 L 150/80 95 Room Air 6 07/07/22 11:04 07/07/22 11:04 07/07/22 11:04 07/07/22 11:01 07/07/22 11:04 07/07/22 07:46 07/07/22 10:34 Constitutional General appearance: no acute distress and alert EENT Eyes pulmonary: nonicteric ENT: oropharynx moist Neck: supple Respiratory Effort: normal Gastrointestinal Gastrointestinal: soft and non-tender Integumentary Integumentary: other Extremities Extremities: other (Left BKA; Rt foot bandaged ) Neurologic Neurological: normal mental status Results Laboratory Findings 07/07/22 05:07 07/07/22 05:07 Abnormal lab findings: Abnormal Labs 07/05/22 07/05/22 07/05/22 16:30 16:30 16:39 WBC 11.3 H RBC 4.29 L Hgb 12.3 L Hct 38.1 L POC Hct 37.0 L Immature Gran % (Auto) 0.6 H Lymph % (Auto) 10.9 L Lymph # (Auto) 1.23 L [place] # (Auto) 0.96 H Immature Gran # 0.07 H Absolute Neutrophils 8.80 H ESR 73 H Sodium POC BUN 34 H BUN Glucose POC Glucose 155 H Hemoglobin A1c Alkaline Phosphatase C-Reactive Protein 4.30 H Triglycerides 07/06/22 07/06/22 07/07/22 05:26 05:26 05:07 WBC 11.8 H RBC 4.32 L 4.02 L Hgb 12.5 L 11.5 L Hct 38.0 L 35.0 L POC Hct Immature Gran % (Auto) 0.6 H Lymph % (Auto) 13.8 L 13.1 L Lymph # (Auto) 1.32 L [place] # (Auto) 0.93 H 0.92 H Immature Gran # 0.06 H 0.06 H Absolute Neutrophils 8.92 H ESR Sodium 131 L POC BUN BUN 28 H Glucose 110 H POC Glucose Hemoglobin A1c 8.5 H Alkaline Phosphatase 142 H C-Reactive Protein Triglycerides 166 H 07/07/22 05:07 WBC RBC Hgb Hct POC Hct Immature Gran % (Auto) Lymph % (Auto) Lymph # (Auto) [place] # (Auto) Immature Gran # Absolute Neutrophils ESR Sodium POC BUN BUN 21 H Glucose 138 H POC Glucose Hemoglobin A1c Alkaline Phosphatase 127 H C-Reactive Protein Triglycerides Microbiology: Microbiology 07/05/22 16:38 Blood Blood Culture - Preliminary 07/05/22 16:30 Blood Blood Culture - Preliminary 07/06/22 04:36 Nose - Both Right and Left MRSA (PCR) - Final A/P Assessment and plan (1) Non-healing open wound of right heel: Assessment and plan: This is a 61y/o male pmhx HTN, DM s/p left BKA, HTN, HLD, hypothyroidism, seizure disorder, GERD, LEONARD, obesity, PAD complicated by multiple amputations including a left BKA and several fingers admitted on 07/05 after developing right heel infection 2 weeks ago. On labs, with mild leukocytosis and increased inflammatory markers. Right foot Xray showing4 cm ulceration in the plantar soft tissues over the calcaneus-new from prior exam. No evidence of underlying osteomyelitis. Patient was seen by cannon fire direction specialist found with right heel black eschar, with DTI stage 4 involving bone and tendon s/p OR debridement on 07/07. Plan: - agree with Vancomycin 1500ng IV q12hrs; monitor vanco trough 30mins before 4th dose to keep range btw 15-20 - agree with Piperacilln/Tazobactam 4.5g IV q8hrs - follow up OR wound cx - follow up OR pathology - follow up Blood cultures results - follow up with Wound care - will determine duration of treatment based on pending results Status: Acute (2) Cellulitis of right foot: Status: Acute (3) Diabetic foot ulcer: Status: Chronic Time Spent With Patient Time: Total time spent is greater than 50% in coordination of care (as documented) at patient's floor/unit and/or counseling patient: Initial: Total time with patient: 40 - 54 minutes Attestation: Mercy Weller MD #[phone]
--- NOTE | 2022-07-07 13:51 | Operative Note ---
DATE OF OPERATION: 07/07/2022 PREOPERATIVE DIAGNOSES: Deep tissue injury, neuropathic pressure ulcer, right posterior heel. POSTOPERATIVE DIAGNOSES: Deep tissue injury, neuropathic pressure ulcer, right posterior heel. PROCEDURE: 1. Excision and debridement. 2. Pulse lavage irrigation. 3. Bone and soft tissue biopsies and cultures. 4. Open packing of wound. SURGEON: Reynaldo Sierra M.D. FINDINGS: This is a diabetic foot ulcer along the right posterior heel area. He has past history of left below-knee amputation. Wound dimensions 6 x 6 x 2 cm. ANESTHESIA: General laryngeal mask airway. STRAW HAT MACHINE OPERATOR: Aravind Casillas CRNA. ESTIMATED BLOOD LOSS: 20 mL. INSTRUMENT COUNT: Count of swabs, instruments, and needles was reported to be correct. INDICATIONS FOR PROCEDURE: The patient has longstanding history of diabetic peripheral neuropathy with previous left below-knee amputation and amputations of the right and left 3rd fingers distal to the MP joints. Due to failed outpatient treatment, patient was admitted to the hospital and is taken to the operating room for surgical debridement and pulse lavage irrigation. PROCEDURE NOTE IN DETAIL: After obtaining informed consent, patient was taken to the OR. He was already started on local wound care and IV antibiotics. A timeout was called. Anesthetized uneventfully in supine position using laryngeal mask airway. He was placed in supine position with a leg rest to elevate his right calf with the knee and hip in flexion. The table was tilted slightly to the right. This gave adequate exposure of the posterior right heel wound. The area site in question was widely cleaned, prepped, and draped in the standard fashion. Patient has peripheral neuropathy. We first excised nonviable, necrotic tissue using Isaac scissors and #10 scalpel blade and tooth pickup. Tangential excision was carried out until all the nonviable, necrotic skin, subcutaneous tissue was sharply excised. Bright red oozing was noted from the wound edges and wound depth. This wound had extended up to the tuberosity of calcaneus. The bone itself felt firm. We obtained bone biopsies using a bone marrow biopsy needle and later with a rongeur. Analytical Lab Analyst specimens were obtained. Bone and soft tissue was sent for culture and sensitivity as well as histology of the bone to rule out osteomyelitis. Copious irrigation was carried out. We used 3 liters of normal saline mixed with 800 mg of gentamicin solution. Hemostasis was achieved with pressure. Dressings consisted of Xeroform gauze and a Betadine-soaked Kerlix roll held together with ABD pad, 4 x 4's, Kerlix, Coban, and Kirby bandages, respectively. He recovered from operation uneventfully and was taken to RR in stable condition. Postoperatively, I saw the patient and his family members on the med/surg floor. Updated them of intraoperative findings and procedure performed. Further recommendations as the condition evolves. VD:[email or web address] Job ID: [id number] Doc ID: [id number] Reynaldo Sierra MD MTDD
[2022-07-07] MEDS: SENNOSIDES 1 TABLET PO SCH (20:20)
[2022-07-07] MEDS: INSULIN GLARGINE, HUMAN 1 UNIT/0.01 ML SQ SCH (21:07)
[2022-07-07] MEDS: VANCOMYCIN 1,500 MG in 0.9 % SODIUM CHLORIDE 500 ML IV SCH (21:07)
[2022-07-07] MEDS: ATORVASTATIN 40 MG TABLET PO SCH (21:08)
[2022-07-07] MEDS: GABAPENTIN 300 MG CAPSULE PO SCH (21:08)
[2022-07-08] MEDS: 0.9 % SODIUM CHLORIDE 10 ML SYRINGE IV SCH ×6 (04:48→21:21)
[2022-07-08] MEDS: PIPERACILLIN SODIUM/TAZOBACTAM 4.5 GM in DEXTROSE 5% IN WATER 50 ML IV SCH ×3 (04:48→21:08)
[2022-07-08 06:27] LABS: Basophils # (Auto) 0.03 K/mcL (0.00-0.30); Basophils % (Auto) 0.2 % (0.0-2.0); Eosinophils # (Auto) 0.05 K/mcL (0.00-0.70); Eosinophils % (Auto) 0.4 % (0.0-7.0); Hematocrit 37.7 % (40.1-51.0); Hemoglobin 12.3 g/dL (13.7-17.5); Lymphocytes # (Auto) 1.04 K/mcL (1.50-4.80); Mean Cell Volume 88.7 fL (80.0-100.0); Mean Corpuscular HGB Conc 32.6 g/dL (31.0-36.0); Mean Platelet Volume 9.7 fL (8.8-12.5); Monocytes # (Auto) 0.91 K/mcL (0.10-0.90); Neutrophils % (Auto) 83.8 % (38.0-78.0); Platelet Count 366 K/mcL (140-440); RBC 4.25 M/mcL (4.63-6.08); Red Cell Distribution Width 12.3 % (11.5-14.5)
[2022-07-08] MEDS: OMEPRAZOLE 20 MG CAPSULE PO SCH (07:26)
[2022-07-08] MEDS: LEVOTHYROXINE 125 MCG TABLET PO SCH (07:26)
[2022-07-08] MEDS: INSULIN LISPRO 1 UNIT/0.01 ML UNIT SQ SCH ×7 (08:12→21:15)
[2022-07-08] MEDS: OLMESARTAN MEDOXOMIL 20 MG TABLET PO SCH (08:57)
[2022-07-08] MEDS: LORATADINE 10 MG TABLET PO SCH (08:58)
[2022-07-08] MEDS: VENLAFAXINE 75 MG CAP.XL.24H PO SCH (08:58)
[2022-07-08] MEDS: VENLAFAXINE 150 MG CAP.XL.24H PO SCH (08:58)
[2022-07-08] MEDS: ASPIRIN 81 MG TAB.CHEW PO SCH (08:58)
[2022-07-08] MEDS: METOPROLOL TARTRATE 25 MG TABLET PO SCH ×2 (08:58→21:10)
[2022-07-08] MEDS: amLODIPine 5 MG TABLET PO SCH (08:59)
[2022-07-08] MEDS: MUPIROCIN OINT 2% 22GM NARES SCH ×2 (08:59→21:09)
[2022-07-08] MEDS: HYDROCHLOROTHIAZIDE 12.5 MG CAPSULE PO SCH (08:59)
[2022-07-08] MEDS: DOCUSATE SODIUM 100 MG CAPSULE PO SCH ×2 (08:59→21:09)
[2022-07-08] MEDS: VANCOMYCIN 1,500 MG in 0.9 % SODIUM CHLORIDE 500 ML IV SCH ×2 (09:00→21:26)
[2022-07-08] MEDS: BRIVIACT 100 MG PO SCH ×2 (09:00→21:09)
--- NOTE | 2022-07-08 10:57 | General Surgery Progress Note ---
SUBJECTIVE Subjective Patient information: Note initiated : 07/08/22 at 10:51 am Service Date, if different from initiated Date: [] Patient: Aravind Ashley 61 y/o M admitted on 07/05/22 for foot wound. Chief Complaint: [] Additional PMFSH (Level 3 Only): Patient seen with Jennifer Olmos RN, Wound Care Nurse Data Officer. Resting comfortably. Had an uneventful night. Post op dressing RIGHT foot and heel is CDI. Constitutional Vitals: Vital Signs Temp Pulse Resp BP Pulse Ox O2 Del Method O2 Flow Rate 98.2 F 86 18 145/84 99 Room Air 0 07/08/22 07:33 07/08/22 07:33 07/08/22 08:00 07/08/22 07:33 07/08/22 08:00 07/08/22 08:00 07/08/22 08:00 Period Temp Pulse Resp BP Sys/Kay Pulse Ox O2 Del Method O2 Flow Rate Last 24 Hr 97.5 F-98.2 F 80-98 0-22 121-150/72-94 93-99 Room Air-Room Air 0-0 Intake and Output 07/07/22 07/08/22 07/08/22 19:59 03:59 11:59 Intake Total 50 550 1030 Output Total 1200 750 Balance 50 -650 280 Weight 306 lb 11.2 oz Intake & Output: Intake & Output 07/07/22 07/08/22 07/08/22 19:59 03:59 11:59 Intake Total 50 550 1030 Output Total 1200 750 Balance 50 -650 280 Weight 306 lb 11.2 oz Intake: IV 50 550 550 Zosyn 4.5 gm In Dextrose 5% in 50 50 50 Water 50 ml @ 100 mls/hr IV Q8H KAREL Rx#:[id number] Vancomycin 1,500 mg In Sodium 500 500 Chloride 0.9% 500 ml @ 333.3 mls/hr IV Q12H KAREL Rx#: [id number] Oral 480 Output: Void Amount 1200 750 Other: Meal Dinner Percent of Meal Consumed 100% Urine Appearance Clear Clear Urine Color Yellow Yellow Urine Odor Normal Normal Exam: AVSS. No changes in GEORGETTE. Right foot and heel dressing is CDI Reviewed input from Dr. Nithin Sales A/P Narrative A/P Narrative: Assessment: Satisfactory post op progress. POD # 1. Plan of Treatment: Plan: Continue current management. Await biopsy and tissue c/s report Await ID recommendations. Dressing change tomorrow. Time Spent With Patient Time: Total time spent is greater than 50% in coordination of care (as documented) at patient's floor/unit and/or counseling patient: Initial: Total time with patient: Less than 40 minutes
--- NOTE | 2022-07-08 13:58 | Internal Med Progress Note ---
SUBJECTIVE Subjective Patient information: Note initiated : 07/08/22 at 1:56 pm Service Date, if different from initiated Date: [] Patient: Aravind Ashley 61 y/o M admitted on 07/05/22 for foot wound. Chief Complaint: [Nonhealing right foot wound] Principal diagnosis: Nonhealing right heel diabetic foot infection Interval history: Mr. Ashley is a 61-year-old male with a history of insulin-dependent type 2 diabetes, hypertension, seizure disorder, GERD, obstructive sleep apnea, obesity, peripheral artery disease complicated by multiple amputations including a left BKA and several fingers presented to the ED at the recommendation of wound care for further evaluation of a right heel wound. The patient says that he first noticed the heel wound in May and it has progressively worsened. The patient follows in the wound care clinic and was supposed to have a debridement done by Dr. Bermudez on 07/07/2022. In the emergency department, the patient was afebrile, had mild leukocytosis, no evidence of sepsis however the patient does clearly have an infection in his right heel. CRP was 4.3, ESR 73. The patient says that he has had prior right lower extremity angiography which showed peripheral arterial disease however it was not amenable to correction by IR. He had a left BKA after developing a left foot infection a while ago. He says at that time he was septic and required transfer to higher level of care and ultimately received the BKA during the hospitalization. 07/06 No significant events overnight, stable glycemic control, hemoglobin A1c was 8.5. CTA right lower extremity showed right iliac femoral and popliteal inflow widely patent, right anterior tibial and posterior tibial arteries are patent to the foot level but riddled with multiple stenosis greater than 50%, the right peroneal artery is occluded in the distal calf. Continues on broad-spectrum antibiotics, surgery planned for tomorrow. 07/07 Stable overnight, patient was taken to the OR for debridement of his heel wound earlier today. Discussed with Tuesday after surgery, Dr. Bermudez he thinks there may be osteomyelitis of the calcaneus bone. Infectious disease consulted. Continues on vancomycin IV dosed by pharmacy and Zosyn. 07/08: I took over the care of this patient today which point he is medically stable. He is calm, pleasant and cooperative. He has no active medical complaints today. Constitutional Vitals: Vital Signs Temp Pulse Resp BP Pulse Ox O2 Del Method O2 Flow Rate 98.2 F 85 18 142/82 98 Room Air 0 07/08/22 12:00 07/08/22 12:00 07/08/22 12:00 07/08/22 12:00 07/08/22 12:00 07/08/22 12:00 07/08/22 08:00 Period Temp Pulse Resp BP Sys/Kay Pulse Ox O2 Del Method O2 Flow Rate Last 24 Hr 97.5 F-98.2 F 80-98 16-22 121-145/72-93 94-99 Room Air-Room Air 0-0 Intake and Output 07/08/22 07/08/22 07/08/22 03:59 11:59 19:59 Intake Total 550 1030 50 Output Total 1200 750 Balance -650 280 50 Intake & Output: Intake & Output 07/08/22 07/08/22 07/08/22 03:59 11:59 19:59 Intake Total 550 1030 50 Output Total 1200 750 Balance -650 280 50 Intake: IV 550 550 50 Zosyn 4.5 gm In Dextrose 5% in 50 50 50 Water 50 ml @ 100 mls/hr IV Q8H KAREL Rx#:[id number] Vancomycin 1,500 mg In Sodium 500 500 Chloride 0.9% 500 ml @ 333.3 mls/hr IV Q12H KAREL Rx#: [id number] Oral 480 Output: Void Amount 1200 750 Other: Urine Appearance Clear Clear Urine Color Yellow Yellow Urine Odor Normal Normal Head Head exam: Present atraumatic and normal inspection Eye Eye exam: Present normal appearance ENT ENT exam: Present mucous membranes moist, normal exam and normal external ear exam Neck Neck exam: Present normal inspection Respiratory Respiratory exam: Present normal respiratory exam Cardiovascular Cardiovascular exam: Present normal rate and rhythm GI/Abdominal GI/Abdominal exam: Present normal bowel sounds Back Exam Back exam: Present normal inspection Neurological Exam Neurological exam: Present alert and oriented X3 Skin Skin exam: Present intact and warm OBJ DATA Labs 07/08/22 05:27 07/07/22 05:07 Labs: Abnormal Lab Results 07/08/22 07/07/22 07/07/22 05:27 05:07 05:07 WBC 13.0 H RBC 4.25 L 4.02 L Hgb 12.3 L 11.5 L Hct 37.7 L 35.0 L POC Hct Immature Gran % (Auto) 0.6 H 0.6 H Neut % (Auto) 83.8 H Lymph % (Auto) 8.0 L 13.1 L Lymph # (Auto) 1.04 L 1.32 L [place] # (Auto) 0.91 H 0.92 H Immature Gran # 0.08 H 0.06 H Absolute Neutrophils 10.92 H ESR Sodium POC BUN BUN 21 H Glucose 138 H POC Glucose Hemoglobin A1c Alkaline Phosphatase 127 H C-Reactive Protein Triglycerides 07/06/22 07/06/22 07/05/22 05:26 05:26 16:39 WBC 11.8 H RBC 4.32 L Hgb 12.5 L Hct 38.0 L POC Hct 37.0 L Immature Gran % (Auto) Neut % (Auto) Lymph % (Auto) 13.8 L Lymph # (Auto) [place] # (Auto) 0.93 H Immature Gran # 0.06 H Absolute Neutrophils 8.92 H ESR Sodium 131 L POC BUN 34 H BUN 28 H Glucose 110 H POC Glucose 155 H Hemoglobin A1c 8.5 H Alkaline Phosphatase 142 H C-Reactive Protein Triglycerides 166 H 07/05/22 07/05/22 16:30 16:30 WBC 11.3 H RBC 4.29 L Hgb 12.3 L Hct 38.1 L POC Hct Immature Gran % (Auto) 0.6 H Neut % (Auto) Lymph % (Auto) 10.9 L Lymph # (Auto) 1.23 L [place] # (Auto) 0.96 H Immature Gran # 0.07 H Absolute Neutrophils 8.80 H ESR 73 H Sodium POC BUN BUN Glucose POC Glucose Hemoglobin A1c Alkaline Phosphatase C-Reactive Protein 4.30 H Triglycerides Meds: Medications Acetaminophen (Acetaminophen 325 Mg Tablet) 650 mg PO Q6HP PRN; Protocol PRN Reason: Per Pain Protocol/Fever > 101 Last Admin: 07/06/22 17:49 Dose: 650 mg Hydrocodone Bitart/Acetaminophen (Hydrocodone/Apap 5/325mg Tablet) 1 tab PO Q4HP PRN; Protocol PRN Reason: Per Pain Protocol Amlodipine Besylate (Amlodipine 5 Mg Tablet) 5 mg PO QDAY [facility] Last Admin: 07/08/22 08:59 Dose: 5 mg Aspirin (Aspirin 81 Mg Tab.Chew) 81 mg PO QDAY [facility] Last Admin: 07/08/22 08:58 Dose: 81 mg Atorvastatin Calcium (Atorvastatin 40 Mg Tablet) 40 mg PO QHS [facility] Last Admin: 07/07/22 21:08 Dose: 40 mg Dextrose (Dextrose 50% 50 Ml Vial) 0 ml IV UD PRN PRN Reason: Per Sliding Scale Diagnostic Test (Pha) (Accu-Chek 1 Each Strip) 1 each FS ACHS [facility] Last Admin: 07/08/22 11:25 Dose: 1 each Docusate Sodium (Docusate Sodium 100 Mg Capsule) 100 mg PO BID [facility] Last Admin: 07/08/22 08:59 Dose: 100 mg Fish Oil (Fish Oil 1,000 Mg Capsule) 1,000 mg PO DAILY [facility] Gabapentin (Gabapentin 300 Mg Capsule) 300 mg PO QHS [facility] Last Admin: 07/07/22 21:08 Dose: 300 mg Glucose (Dextrose 31 Gm Oral.Susp) 15 gm PO PRN PRN PRN Reason: Hypoglycemia Hydrochlorothiazide (Hydrochlorothiazide 12.5 Mg Capsule) 12.5 mg PO DAILY [facility] Last Admin: 07/08/22 08:59 Dose: 12.5 mg Hydromorphone HCl (Hydromorphone 0.5 Mg/0.5 Ml Syringe) 0.5 mg IV Q2HP PRN; P rotocol PRN Reason: Per Pain Protocol Piperacillin Sod/Tazobactam (Sod 4.5 gm/ Dextrose) 50 mls @ 100 mls/hr IV Q8H [facility]; Protocol Last Infusion: 07/08/22 12:49 Dose: Infused Vancomycin HCl 1,500 mg/ (Sodium Chloride) 500 mls @ 333.3 mls/hr IV Q12H [facility] Last Infusion: 07/08/22 10:44 Dose: Infused Insulin Glargine (Insulin Glargine, Human 1 Unit/0.01 Ml) 30 unit SQ BID [facility] Insulin Human Lispro (Insulin Lispro 1 Unit/0.01 Ml Unit) 0 unit SQ ACHS [facility]; Protocol Last Admin: 07/08/22 12:13 Dose: 3 units Insulin Human Lispro (Insulin Lispro 1 Unit/0.01 Ml Unit) 0 unit SQ AC [facility] Last Admin: 07/08/22 12:13 Dose: 9 units Levothyroxine Sodium (Levothyroxine 125 Mcg Tablet) 250 mcg PO QAMAC [facility] Last Admin: 07/08/22 07:26 Dose: 250 mcg Loratadine (Loratadine 10 Mg Tablet) 10 mg PO DAILY [facility] Last Admin: 07/08/22 08:58 Dose: 10 mg Melatonin (Melatonin 3 Mg Tablet) 9 mg PO [facility] Metformin HCl ([facility] 500 Mg Tablet) [facility] Metoprolol Tartrate (Metoprolol Tartrate 25 Mg Tablet) 25 mg PO BID [facility] Last Admin: 07/08/22 08:58 Dose: 25 mg Mupirocin (Mupirocin Oint 2% 22gm) 1 dose NARES BID [facility] Last Admin: 07/08/22 08:59 Dose: 1 dose Olmesartan (Olmesartan Medoxomil 20 Mg Tablet) 40 mg PO DAILY [facility] Last Admin: 07/08/22 08:57 Dose: 40 mg Omeprazole (Omeprazole 20 Mg Capsule) 20 mg PO QAMAC [facility] Last Admin: 07/08/22 07:26 Dose: 20 mg Ondansetron HCl (Ondansetron 4 Mg/2 Ml Vial) 4 mg IV Q6HP PRN PRN Reason: Nausea And Vomiting Briviact 100mg Tab 1 dose PO BID [facility] Last Admin: 07/08/22 09:00 Dose: 1 dose Senna (Sennosides 1 Tablet) 2 tab PO [facility] Last Admin: 07/07/22 20:20 Dose: Not Given Sodium Chloride (0.9 % Sodium Chloride 10 Ml Syringe) 10 ml IV Q8 [facility] Last Admin: 07/08/22 13:37 Dose: 10 ml Sodium Chloride (0.9 % Sodium Chloride 10 Ml Syringe) 10 ml IV Q8 [facility] Last Admin: 07/08/22 13:38 Dose: Not Given Vancomycin HCl (Vancomycin Per Pharmacy) 1 order IV [facility] [place]; Protocol Venlafaxine HCl (Venlafaxine 150 Mg Cap.Xl.24h) 300 mg PO DAILY [facility] A/P Narrative A/P Narrative: Assessment: 61-year-old male with a history of insulin-dependent type 2 diabetes, hypertension, seizure disorder, GERD, obstructive sleep apnea, obesity, peripheral artery disease complicated by multiple amputations including a left BKA and several fingers now admitted for a right heel infection and cellulitis. #Right heel diabetic foot infection and cellulitis status post I&D with deep tissue cultures on 07/07/2022 #Type 2 diabetes mellitus complicated by neuropathy #Peripheral artery disease #Essential hypertension #Seizure disorder #GERD #Obstructive sleep apnea on CPAP #Obesity BMI 39 #History of left BKA and multiple finger amputations Plan -CT roger reveals no signifiant PVD of the RLE. He does have L BKA. -Continue vancomycin IV per pharmacy and Zosyn. -Infectious disease consulted. -Follow-up deep tissue cultures obtained in the OR. -Follow-up blood cultures x2 from the ED currently showing NGTD. -Wound care surgery following, Tuesday. -Lantus 50 units at bedtime, prandial Humalog 1unit to 6 g carb ratio, correction Humalog SSI low-dose. -Analgesics as needed. -Continue home Norvasc, aspirin, Lipitor, gabapentin, levothyroxine, Claritin, Lopressor, olmesartan hand, omeprazole, Brivaracetam. -Consistent carbohydrate diet, n.p.o. after midnight. -CPAP at bedtime. -CODE STATUS: Full -Disposition: Inpatient MedSurg, awaiting ID consult for recommendations regardi ng antibiotic treatment. Anticipate the patient will discharge to home when stable and an antibiotic treatment plan is in place. Plan of Treatment: Plan: Continue current management. Await biopsy and tissue c/s report Await ID recommendations. Dressing change tomorrow. Time Spent With Patient Time: Total time spent is greater than 50% in coordination of care (as documented) at patient's floor/unit and/or counseling patient: Subsequent: Total time with patient: 35 - 49 minutes
[2022-07-08] MEDS: metFORMIN 500 MG TABLET PO SCH (17:35)
[2022-07-08] MEDS ORDERED: INSULIN DETEMIR U SUB-Q SCH (21:00)
[2022-07-08] MEDS ORDERED: CINNAMON BARK 500 MG PO SCH (21:00)
[2022-07-08] MEDS ORDERED: [UNRECOGNIZED DRUG - OTHER] SUB-Q SCH (21:00)
[2022-07-08] MEDS: GABAPENTIN 300 MG CAPSULE PO SCH (21:10)
[2022-07-08] MEDS: MELATONIN 3 MG TABLET PO SCH (21:10)
[2022-07-08] MEDS: SENNOSIDES 1 TABLET PO SCH (21:10)
[2022-07-08] MEDS: ATORVASTATIN 40 MG TABLET PO SCH (21:20)
[2022-07-08] MEDS: INSULIN GLARGINE, HUMAN 1 UNIT/0.01 ML SQ SCH (21:21)
[2022-07-09] MEDS: PIPERACILLIN SODIUM/TAZOBACTAM 4.5 GM in DEXTROSE 5% IN WATER 50 ML IV SCH ×3 (04:04→21:06)
[2022-07-09] MEDS: 0.9 % SODIUM CHLORIDE 10 ML SYRINGE IV SCH ×6 (05:03→21:06)
--- NOTE | 2022-07-09 07:18 | EKG ---
[facility] Test Date: 2022-07-06 Pat Name: Aravind Ashley Department: [facility] Room: 127 Gender: Male School Attendance Secretary: : [id number] Requested By: Reynaldo Sierra Order Number: [id number] Reading MD: Rob Matta Measurements Intervals [place] Rate: 91 P: 51 NM: 265 QRS: 63 QRSD: 107 T: 11 QT: 373 QTc: 459 Interpretive Statements Sinus rhythm Prolonged NM interval Low voltage, precordial leads Electronically Signed On 07-09-2022 7:17:44 PDT by Rob Matta /[email or web address]/[email or web address]/[id number]
[2022-07-09] MEDS: BRIVIACT 100 MG PO SCH ×2 (08:24→21:04)
[2022-07-09] MEDS: FISH OIL 1,000 MG CAPSULE PO SCH (08:24)
[2022-07-09] MEDS: VENLAFAXINE 150 MG CAP.XL.24H PO SCH (08:25)
[2022-07-09] MEDS: LEVOTHYROXINE 125 MCG TABLET PO SCH (08:25)
[2022-07-09] MEDS: OLMESARTAN MEDOXOMIL 20 MG TABLET PO SCH (08:25)
[2022-07-09] MEDS: DOCUSATE SODIUM 100 MG CAPSULE PO SCH ×2 (08:25→21:03)
[2022-07-09] MEDS: amLODIPine 5 MG TABLET PO SCH (08:25)
[2022-07-09] MEDS: HYDROCHLOROTHIAZIDE 12.5 MG CAPSULE PO SCH (08:25)
[2022-07-09] MEDS: LORATADINE 10 MG TABLET PO SCH (08:25)
[2022-07-09] MEDS: ASPIRIN 81 MG TAB.CHEW PO SCH (08:25)
[2022-07-09] MEDS: METOPROLOL TARTRATE 25 MG TABLET PO SCH ×2 (08:26→21:03)
[2022-07-09] MEDS: metFORMIN 500 MG TABLET PO SCH ×2 (08:26→17:22)
[2022-07-09] MEDS: INSULIN LISPRO 1 UNIT/0.01 ML UNIT SQ SCH ×7 (08:26→21:05)
[2022-07-09] MEDS: OMEPRAZOLE 20 MG CAPSULE PO SCH (08:27)
[2022-07-09] MEDS: INSULIN GLARGINE, HUMAN 1 UNIT/0.01 ML SQ SCH ×2 (10:27→21:05)
[2022-07-09] MEDS: VANCOMYCIN 1,500 MG in 0.9 % SODIUM CHLORIDE 500 ML IV SCH ×2 (10:27→21:58)
[2022-07-09] MEDS: MUPIROCIN OINT 2% 22GM NARES SCH ×2 (10:27→21:04)
--- NOTE | 2022-07-09 12:06 | General Surgery Progress Note ---
SUBJECTIVE Subjective Patient information: Note initiated : 07/09/22 at 11:54 am Service Date, if different from initiated Date: [] Patient: Aravind Ashley 61 y/o M admitted on 07/05/22 for foot wound. Chief Complaint: [] Principal diagnosis: Nonhealing right heel diabetic foot infection Additional PMFSH (Level 3 Only): POD # 2. Patient seen with Val GONZALEZ. Med Surg floor. Patient had an uneventful night. Constitutional Vitals: Vital Signs Temp Pulse Resp BP Pulse Ox O2 Del Method O2 Flow Rate 98.3 F 80 20 142/78 96 CPAP 0 07/09/22 08:00 07/09/22 08:00 07/09/22 08:00 07/09/22 08:00 07/09/22 04:00 07/09/22 04:00 07/08/22 08:00 Period Temp Pulse Resp BP Sys/Kay Pulse Ox O2 Del Method O2 Flow Rate Last 24 Hr 97.0 F-98.7 F 80-91 16-20 131-142/69-87 94-99 CPAP-Room Air Intake and Output 07/08/22 07/09/22 07/09/22 19:59 03:59 11:59 Intake Total 1090 1030 850 Output Total 500 1000 Balance 1090 530 -150 Weight 307 lb Intake & Output: Intake & Output 07/08/22 07/09/22 07/09/22 19:59 03:59 11:59 Intake Total 1090 1030 850 Output Total 500 1000 Balance 1090 530 -150 Weight 307 lb Intake: IV 50 550 50 Zosyn 4.5 gm In Dextrose 5% in 50 50 50 Water 50 ml @ 100 mls/hr IV Q8H [facility] Rx#:[id number] Vancomycin 1,500 mg In Sodium 500 Chloride 0.9% 500 ml @ 333.3 mls/hr IV Q12H [facility]AREL Rx#: [id number] Oral 1040 480 800 Output: Void Amount 500 1000 Other: Meal Lunch Dinner Percent of Meal Consumed 100% 100% Feeding Ability Assist with Tray Set Up Urine Appearance Clear Clear Clear Urine Color Yellow Yellow Yellow Urine Odor Normal Normal Normal Stool Size Moderate Stool Color Brown Stool Consistency Soft Formed # Voids 1 # Bowel Movements 1 Exam: AVSS. No changes GEORGETTE. L/E. Primary dressing changed. Moist wound base. [place]. NO odor, NO purulence, NO warmth. Preliminary wound c/s Staph / Strep. Sensitivities awaited. Bone biopsy: Lamellar bone. NO osteomyelitis WBC 13, Cr. 0.9 A/P Narrative A/P Narrative: Assessment: Satisfactory post surgical progress. Wound care and dressing change at bedside Patient seen along with Val RN. Plan of Treatment: Plan: Await ID recommendations about Antibiotics. Daily dressing changes Clean with VASHE, GCB wet dry dressings Cover with Kerlix gauze ABD pad and Kerlix bandage IAN bandage ONCE a day. Written instructions signed in front of nurse, If discharged, F/U at wound care clinic by 07/03 OR 04 July. Plan reviewed with nurse and Hospitalist Dr. [place]. Time Spent With Patient Time: Total time spent is greater than 50% in coordination of care (as documented) at patient's floor/unit and/or counseling patient: Initial: Total time with patient: 40 - 54 minutes
--- NOTE | 2022-07-09 12:22 | Internal Med Progress Note ---
SUBJECTIVE Subjective Patient information: Note initiated : 07/09/22 at 12:20 pm Service Date, if different from initiated Date: [] Patient: Aravind Ashley 61 y/o M admitted on 07/05/22 for foot wound. Chief Complaint: [Non-healing wound] Principal diagnosis: Nonhealing right heel diabetic foot infection Interval history: Mr. Ashley is a 61-year-old male with a history of insulin-dependent type 2 diabetes, hypertension, seizure disorder, GERD, obstructive sleep apnea, obesity, peripheral artery disease complicated by multiple amputations including a left BKA and several fingers presented to the ED at the recommendation of wound care for further evaluation of a right heel wound. The patient says that he first noticed the heel wound in May and it has progressively worsened. The patient follows in the wound care clinic and was supposed to have a debridement done by Dr. Bermudez on 07/07/2022. In the emergency department, the patient was afebrile, had mild leukocytosis, no evidence of sepsis however the patient does clearly have an infection in his right heel. CRP was 4.3, ESR 73. The patient says that he has had prior right lower extremity angiography which showed peripheral arterial disease however it was not amenable to correction by IR. He had a left BKA after developing a left foot infection a while ago. He says at that time he was septic and required transfer to higher level of care and ultimately received the BKA during the hospitalization. 07/06 No significant events overnight, stable glycemic control, hemoglobin A1c was 8.5. CTA right lower extremity showed right iliac femoral and popliteal inflow widely patent, right anterior tibial and posterior tibial arteries are patent to the foot level but riddled with multiple stenosis greater than 50%, the right peroneal artery is occluded in the distal calf. Continues on broad-spectrum antibiotics, surgery planned for tomorrow. 07/07 Stable overnight, patient was taken to the OR for debridement of his heel wound earlier today. Discussed with Tuesday after surgery, Dr. Bermudez he thinks there may be osteomyelitis of the calcaneus bone. Infectious disease consulted. Continues on vancomycin IV dosed by pharmacy and Zosyn. 07/08: I took over the care of this patient today which point he is medically stable. He is calm, pleasant and cooperative. He has no active medical complaints today. 07/09: The patient was working with physical therapy this morning. Discussed the case with Dr. Sierra. The patient is otherwise doing quite well. Constitutional Vitals: Vital Signs Temp Pulse Resp BP Pulse Ox O2 Del Method O2 Flow Rate 98.3 F 80 20 142/78 96 CPAP 0 07/09/22 08:00 07/09/22 08:00 07/09/22 08:00 07/09/22 08:00 07/09/22 04:00 07/09/22 04:00 07/08/22 08:00 Period Temp Pulse Resp BP Sys/Kay Pulse Ox O2 Del Method O2 Flow Rate Last 24 Hr 97.0 F-98.7 F 80-91 16-20 131-142/69-87 94-99 CPAP-Room Air Intake and Output 07/09/22 07/09/22 07/09/22 03:59 11:59 19:59 Intake Total 1030 850 Output Total 500 1000 Balance 530 -150 Weight 139.253 kg Intake & Output: Intake & Output 07/09/22 07/09/22 07/09/22 03:59 11:59 19:59 Intake Total 1030 850 Output Total 500 1000 Balance 530 -150 Weight 139.253 kg Intake: IV 550 50 Zosyn 4.5 gm In Dextrose 5% in 50 50 Water 50 ml @ 100 mls/hr IV Q8H [facility] Rx#:[id number] Vancomycin 1,500 mg In Sodium 500 Chloride 0.9% 500 ml @ 333.3 mls/hr IV Q12H [facility] Rx#: [id number] Oral 480 800 Output: Void Amount 500 1000 Other: Meal Dinner Percent of Meal Consumed 100% Urine Appearance Clear Clear Urine Color Yellow Yellow Urine Odor Normal Normal Head Head exam: Present atraumatic and normal inspection Eye Eye exam: Present normal appearance ENT ENT exam: Present mucous membranes moist, normal exam and normal external ear exam Neck Neck exam: Present normal inspection Respiratory Respiratory exam: Present normal respiratory exam Cardiovascular Cardiovascular exam: Present normal rate and rhythm GI/Abdominal GI/Abdominal exam: Present normal bowel sounds Back Exam Back exam: Present normal inspection Neurological Exam Neurological exam: Present alert and oriented X3 Skin Skin exam: Present intact and warm OBJ DATA Labs 07/08/22 05:27 07/07/22 05:07 Labs: Abnormal Lab Results 07/08/22 07/07/22 07/07/22 05:27 05:07 05:07 WBC 13.0 H RBC 4.25 L 4.02 L Hgb 12.3 L 11.5 L Hct 37.7 L 35.0 L Immature Gran % (Auto) 0.6 H 0.6 H Neut % (Auto) 83.8 H Lymph % (Auto) 8.0 L 13.1 L Lymph # (Auto) 1.04 L 1.32 L [place] # (Auto) 0.91 H 0.92 H Immature Gran # 0.08 H 0.06 H Absolute Neutrophils 10.92 H BUN 21 H Glucose 138 H Alkaline Phosphatase 127 H Meds: Medications Acetaminophen (Acetaminophen 325 Mg Tablet) 650 mg PO Q6HP PRN; Protocol PRN Reason: Per Pain Protocol/Fever > 101 Last Admin: 07/06/22 17:49 Dose: 650 mg Hydrocodone Bitart/Acetaminophen (Hydrocodone/Apap 5/325mg Tablet) 1 tab PO Q4HP PRN; Protocol PRN Reason: Per Pain Protocol Amlodipine Besylate (Amlodipine 5 Mg Tablet) 5 mg PO QDAY [facility] Last Admin: 07/09/22 08:25 Dose: 5 mg Aspirin (Aspirin 81 Mg Tab.Chew) 81 mg PO QDAY [facility] Last Admin: 07/09/22 08:25 Dose: 81 mg Atorvastatin Calcium (Atorvastatin 40 Mg Tablet) 40 mg PO QHS [facility] Last Admin: 07/08/22 21:20 Dose: 40 mg Dextrose (Dextrose 50% 50 Ml Vial) 0 ml IV UD PRN PRN Reason: Per Sliding Scale Diagnostic Test (Pha) (Accu-Chek 1 Each Strip) 1 each FS ACHS [facility] Last Admin: 07/09/22 11:59 Dose: 1 each Docusate Sodium (Docusate Sodium 100 Mg Capsule) 100 mg PO BID [facility] Last Admin: 07/09/22 08:25 Dose: 100 mg Fish Oil (Fish Oil 1,000 Mg Capsule) 1,000 mg PO DAILY [facility] Last Admin: 07/09/22 08:24 Dose: 1,000 mg Gabapentin (Gabapentin 300 Mg Capsule) 300 mg PO QHS [facility] Last Admin: 07/08/22 21:10 Dose: 300 mg Glucose (Dextrose 31 Gm Oral.Susp) 15 gm PO PRN PRN PRN Reason: Hypoglycemia Hydrochlorothiazide (Hydrochlorothiazide 12.5 Mg Capsule) 12.5 mg PO DAILY [facility] Last Admin: 07/09/22 08:25 Dose: 12.5 mg Hydromorphone HCl (Hydromorphone 0.5 Mg/0.5 Ml Syringe) 0.5 mg IV Q2HP PRN; Protocol PRN Reason: Per Pain Protocol Piperacillin Sod/Tazobactam (Sod 4.5 gm/ Dextrose) 50 mls @ 100 mls/hr IV Q8H [facility]; Protocol Last Infusion: 07/09/22 04:34 Dose: Infused Vancomycin HCl 1,500 mg/ (Sodium Chloride) 500 mls @ 333.3 mls/hr IV Q12H [facility] Last Admin: 07/09/22 10:27 Dose: 333 mls/hr Gentamicin Sulfate 40 mg/Clindamycin Phosphate 300 mg/Bacitracin 25,000 unit/ Sodium Chloride 503 mls @ 0 mls/hr IRR Q24H [facility]; Protocol Insulin Glargine (Insulin Glargine, Human 1 Unit/0.01 Ml) 30 unit SQ BID [facility] Last Admin: 07/09/22 10:27 Dose: 30 units Insulin Human Lispro (Insulin Lispro 1 Unit/0.01 Ml Unit) 0 unit SQ ACHS [facility]; Protocol Last Admin: 07/09/22 12:07 Dose: 1 units Insulin Human Lispro (Insulin Lispro 1 Unit/0.01 Ml Unit) 0 unit SQ AC [facility] Last Admin: 07/09/22 12:08 Dose: 6 units Levothyroxine Sodium (Levothyroxine 125 Mcg Tablet) 250 mcg PO QAMAC [facility] Last Admin: 07/09/22 08:25 Dose: 250 mcg Loratadine (Loratadine 10 Mg Tablet) 10 mg PO DAILY [facility] Last Admin: 07/09/22 08:25 Dose: 10 mg Melatonin (Melatonin 3 Mg Tablet) 9 mg PO HS [facility] Last Admin: 07/08/22 21:10 Dose: 9 mg Metformin HCl (Metformin 500 Mg Tablet) 1,000 mg PO BIDCC [facility] Last Admin: 07/09/22 08:26 Dose: 1,000 mg Metoprolol Tartrate (Metoprolol Tartrate 25 Mg Tablet) 25 mg PO BID [facility] Last Admin: 07/09/22 08:26 Dose: 25 mg Mupirocin (Mupirocin Oint 2% 22gm) 1 dose NARES BID [facility] Last Admin: 07/09/22 10:27 Dose: 1 dose Olmesartan (Olmesartan Medoxomil 20 Mg Tablet) 40 mg PO DAILY [facility] Last Admin: 07/09/22 08:25 Dose: 40 mg Omeprazole (Omeprazole 20 Mg Capsule) 20 mg PO QAMAC [facility] Last Admin: 07/09/22 08:27 Dose: 20 mg Ondansetron HCl (Ondansetron 4 Mg/2 Ml Vial) 4 mg IV Q6HP PRN PRN Reason: Nausea And Vomiting Briviact 100mg Tab 1 dose PO BID [facility] Last Admin: 07/09/22 08:24 Dose: 1 dose Senna (Sennosides 1 Tablet) 2 tab PO HS [facility] Last Admin: 07/08/22 21:10 Dose: 2 tab Sodium Chloride (0.9 % Sodium Chloride 10 Ml Syringe) 10 ml IV Q8 [facility] Last Admin: 07/09/22 05:03 Dose: 10 ml Sodium Chloride (0.9 % Sodium Chloride 10 Ml Syringe) 10 ml IV Q8 [facility] Last Admin: 07/09/22 05:03 Dose: 10 ml Vancomycin HCl (Vancomycin Per Pharmacy) 1 order IV UD [facility]; Protocol Venlafaxine HCl (Venlafaxine 150 Mg Cap.Xl.24h) 300 mg PO DAILY [facility] Last Admin: 07/09/22 08:25 Dose: 300 mg A/P Narrative A/P Narrative: Assessment: 61-year-old male with a history of insulin-dependent type 2 diabetes, hypertension, seizure disorder, GERD, obstructive sleep apnea, obesity, peripheral artery disease complicated by multiple amputations including a left BKA and several fingers now admitted for a right heel infection and cellulitis. #Right heel diabetic foot infection and cellulitis status post I&D with deep tissue cultures on 07/07/2022 #Type 2 diabetes mellitus complicated by neuropathy #Peripheral artery disease #Essential hypertension #Seizure disorder #GERD #Obstructive sleep apnea on CPAP #Obesity BMI 39 #History of left BKA and multiple finger amputations Plan -CT roger reveals no signifiant PVD of the RLE. He does have L BKA. -Awaiting ID rec (PO vs IV abx), and he may need outpatient PICC. Patient prefers SNF, will need f/u in wound clinic for VAC -Continue vancomycin IV per pharmacy and Zosyn. -Infectious disease consulted. -Follow-up deep tissue cultures obtained in the OR. -Follow-up blood cultures x2 from the ED currently showing NGTD. -Wound care surgery following, Tuesday. -Lantus 50 units at bedtime, prandial Humalog 1unit to 6 g carb ratio, correct ion Humalog SSI low-dose. -Analgesics as needed. -Continue home Norvasc, aspirin, Lipitor, gabapentin, levothyroxine, Claritin, Lopressor, olmesartan hand, omeprazole, Brivaracetam. -Consistent carbohydrate diet, n.p.o. after midnight. -CPAP at bedtime. -CODE STATUS: Full -Disposition: Inpatient MedSurg, awaiting ID consult for recommendations regarding antibiotic treatment. Anticipate the patient will discharge to home when stable and an antibiotic treatment plan is in place. Plan of Treatment: Plan: Await ID recommendations about Antibiotics. Daily dressing changes Clean with VASHE, GCB wet dry dressings Cover with Kerlix gauze ABD pad and Kerlix bandage IAN bandage ONCE a day. Written instructions signed in front of nurse, If discharged, F/U at wound care clinic by 07/03 OR 04 July. Plan reviewed with nurse and Hospitalist Dr. Canada. Time Spent With Patient Time: Total time spent is greater than 50% in coordination of care (as documented) at patient's floor/unit and/or counseling patient: Subsequent: Total time with patient: 35 - 49 minutes
[2022-07-09] MEDS: SENNOSIDES 1 TABLET PO SCH (21:03)
[2022-07-09] MEDS: MELATONIN 3 MG TABLET PO SCH (21:03)
[2022-07-09] MEDS: GABAPENTIN 300 MG CAPSULE PO SCH (21:04)
[2022-07-09] MEDS: ATORVASTATIN 40 MG TABLET PO SCH (21:04)
[2022-07-10] MEDS: PIPERACILLIN SODIUM/TAZOBACTAM 4.5 GM in DEXTROSE 5% IN WATER 50 ML IV SCH ×3 (04:31→22:31)
[2022-07-10] MEDS: OMEPRAZOLE 20 MG CAPSULE PO SCH (07:51)
[2022-07-10] MEDS: 0.9 % SODIUM CHLORIDE 10 ML SYRINGE IV SCH ×5 (07:51→22:31)
[2022-07-10] MEDS: LEVOTHYROXINE 125 MCG TABLET PO SCH (07:51)
[2022-07-10] MEDS: metFORMIN 500 MG TABLET PO SCH ×2 (08:29→17:25)
[2022-07-10] MEDS: INSULIN LISPRO 1 UNIT/0.01 ML UNIT SQ SCH ×7 (08:30→20:27)
[2022-07-10] MEDS: ASPIRIN 81 MG TAB.CHEW PO SCH (09:35)
[2022-07-10] MEDS: amLODIPine 5 MG TABLET PO SCH (09:35)
[2022-07-10] MEDS: OLMESARTAN MEDOXOMIL 20 MG TABLET PO SCH (09:35)
[2022-07-10] MEDS: INSULIN GLARGINE, HUMAN 1 UNIT/0.01 ML SQ SCH ×2 (09:35→20:26)
[2022-07-10] MEDS: FISH OIL 1,000 MG CAPSULE PO SCH (09:35)
[2022-07-10] MEDS: VENLAFAXINE 150 MG CAP.XL.24H PO SCH (09:35)
[2022-07-10] MEDS: METOPROLOL TARTRATE 25 MG TABLET PO SCH ×2 (09:36→20:28)
[2022-07-10] MEDS: LORATADINE 10 MG TABLET PO SCH (09:36)
[2022-07-10] MEDS: MUPIROCIN OINT 2% 22GM NARES SCH ×2 (09:36→20:26)
[2022-07-10] MEDS: HYDROCHLOROTHIAZIDE 12.5 MG CAPSULE PO SCH (09:36)
[2022-07-10] MEDS: DOCUSATE SODIUM 100 MG CAPSULE PO SCH ×2 (09:36→20:28)
[2022-07-10] MEDS: BRIVIACT 100 MG PO SCH ×2 (09:37→20:27)
[2022-07-10] MEDS: GENTAMICIN SULFATE 40 MG, CLINDAMYCIN 300 MG in SODIUM CHLORIDE IRRIG SOLUTION 500 ML IRR SCH (09:37)
--- NOTE | 2022-07-10 11:33 | General Surgery Progress Note ---
SUBJECTIVE Subjective Patient information: Note initiated : 07/10/22 at 11:25 am Service Date, if different from initiated Date: [] Patient: Aravind Ashley 61 y/o M admitted on 07/05/22 for foot wound. Chief Complaint: [] Principal diagnosis: Nonhealing right heel diabetic foot infection Additional PMFSH (Level 3 Only): Patient seen with Sabrina Alford RN. wound care plan and orders reviewed. Progress reviewed with Dr. Ishan Canada MD Hospitalist Physician. Patient had an uneventful night. Progressing well with physical therapy. Constitutional Vitals: Vital Signs Temp Pulse Resp BP Pulse Ox O2 Del Method O2 Flow Rate 98.2 F 78 16 148/70 96 Room Air 0 07/10/22 08:00 07/10/22 08:00 07/10/22 08:00 07/10/22 08:00 07/10/22 08:00 07/10/22 08:00 07/09/22 16:00 Period Temp Pulse Resp BP Sys/Kay Pulse Ox O2 Del Method O2 Flow Rate Last 24 Hr 97.3 F-98.3 F 71-83 16-18 128-165/61-91 96-100 CPAP-Room Air 0 Intake and Output 07/09/22 07/10/22 07/10/22 19:59 03:59 11:59 Intake Total 1350 1100 50 Output Total 450 900 300 Balance 900 200 -250 Weight 307 lb 307 lb 9.6 oz Intake & Output: Intake & Output 07/09/22 07/10/22 07/10/22 19:59 03:59 11:59 Intake Total 1350 1100 50 Output Total 450 900 300 Balance 900 200 -250 Weight 307 lb 307 lb 9.6 oz Intake: IV 550 550 50 Zosyn 4.5 gm In Dextrose 5% in 50 50 50 Water 50 ml @ 100 mls/hr IV Q8H [facility] Rx#:[id number] Vancomycin 1,500 mg In Sodium 500 500 Chloride 0.9% 500 ml @ 333.3 mls/hr IV Q12H [facility] Rx#: [id number] Oral 800 550 Output: Void Amount 450 900 300 Other: Urine Appearance Clear Clear Clear Urine Color Bright Yellow Yellow Yellow Urine Odor Normal Stool Size Large Stool Color Brown Yellow Green Stool Consistency Soft # Bowel Movements 1 Exam: AVSS. No changes GEORGETTE. Final wound c/s bone: Strep canis. Sensitivities NOT routinely performed. Staph aureus Pansensitive. Ongoing daily wound care with VASHE and GCB. Continue same. Infectious disease d/c antibiotics plan awaited. A/P Narrative A/P Narrative: Assessment: Satisfactory post surgical progress. Local wound care ongoing. On systemic antibiotics. Vanc. Plan of Treatment: Plan: Await ID recommendations about Antibiotics. Daily dressing changes Clean with VASHE, GCB wet dry dressings Cover with Kerlix gauze ABD pad and Kerlix bandage IAN bandage ONCE a day. Anticipate d/c / rehab after weekend. Time Spent With Patient Time: Total time spent is greater than 50% in coordination of care (as documented) at patient's floor/unit and/or counseling patient: Initial: Total time with patient: Less than 40 minutes
[2022-07-10] MEDS ORDERED: GENTAMICIN SULFATE 40 MG, CLINDAMYCIN 300 MG, BACITRACIN 25,000 UNIT in SODIUM CHLORIDE... IRR SCH (12:00)
[2022-07-10] MEDS: VANCOMYCIN 1,500 MG in 0.9 % SODIUM CHLORIDE 500 ML IV SCH ×2 (13:05→23:09)
--- NOTE | 2022-07-10 13:23 | Internal Med Progress Note ---
SUBJECTIVE Subjective Patient information: Note initiated : 07/10/22 at 1:22 pm Service Date, if different from initiated Date: [] Patient: Aravind Ashley 61 y/o M admitted on 07/05/22 for foot wound. Chief Complaint: [Nonhealing ulcer] Principal diagnosis: Nonhealing right heel diabetic foot infection Interval history: Mr. Ashley is a 61-year-old male with a history of insulin-dependent type 2 diabetes, hypertension, seizure disorder, GERD, obstructive sleep apnea, obesity, peripheral artery disease complicated by multiple amputations including a left BKA and several fingers presented to the ED at the recommendation of wound care for further evaluation of a right heel wound. The patient says that he first noticed the heel wound in May and it has progressively worsened. The patient follows in the wound care clinic and was supposed to have a debridement done by Dr. Bermudez on 07/07/2022. In the emergency department, the patient was afebrile, had mild leukocytosis, no evidence of sepsis however the patient does clearly have an infection in his right heel. CRP was 4.3, ESR 73. The patient says that he has had prior right lower extremity angiography which showed peripheral arterial disease however it was not amenable to correction by IR. He had a left BKA after developing a left foot infection a while ago. He says at that time he was septic and required transfer to higher level of care and ultimately received the BKA during the hospitalization. 07/06 No significant events overnight, stable glycemic control, hemoglobin A1c was 8.5. CTA right lower extremity showed right iliac femoral and popliteal inflow widely patent, right anterior tibial and posterior tibial arteries are patent to the foot level but riddled with multiple stenosis greater than 50%, the right peroneal artery is occluded in the distal calf. Continues on broad-spectrum antibiotics, surgery planned for tomorrow. 07/07 Stable overnight, patient was taken to the OR for debridement of his heel wound earlier today. Discussed with Tuesday after surgery, Dr. Bermudez he thinks there may be osteomyelitis of the calcaneus bone. Infectious disease consulted. Continues on vancomycin IV dosed by pharmacy and Zosyn. 07/08: I took over the care of this patient today which point he is medically stable. He is calm, pleasant and cooperative. He has no active medical complaints today. 07/09: The patient was working with physical therapy this morning. Discussed the case with Dr. Sierra. The patient is otherwise doing quite well. 07/10: Patient is doing well. He has no active complaints or concerns. Constitutional Vitals: Vital Signs Temp Pulse Resp BP Pulse Ox O2 Del Method O2 Flow Rate 97.5 F 77 16 136/83 99 Room Air 0 07/10/22 12:00 07/10/22 12:00 07/10/22 12:00 07/10/22 12:00 07/10/22 12:00 07/10/22 12:00 07/09/22 16:00 Period Temp Pulse Resp BP Sys/Kay Pulse Ox O2 Del Method O2 Flow Rate Last 24 Hr 97.3 F-98.3 F 71-83 16-18 128-165/61-91 96-100 CPAP-Room Air 0 Intake and Output 07/10/22 07/10/22 07/10/22 03:59 11:59 19:59 Intake Total 1100 50 Output Total 900 300 200 Balance 200 -250 -200 Weight 139.525 kg Intake & Output: Intake & Output 07/10/22 07/10/22 07/10/22 03:59 11:59 19:59 Intake Total 1100 50 Output Total 900 300 200 Balance 200 -250 -200 Weight 139.525 kg Intake: IV 550 50 Zosyn 4.5 gm In Dextrose 5% in 50 50 Water 50 ml @ 100 mls/hr IV Q8H [facility] Rx#:[id number] Vancomycin 1,500 mg In Sodium 500 Chloride 0.9% 500 ml @ 333.3 mls/hr IV Q12H [facility] Rx#: [id number] Oral 550 Output: Void Amount 900 300 200 Other: Urine Appearance Clear Clear Clear Urine Color Yellow Yellow Pale Pale Urine Odor Normal Stool Size Large Stool Color Brown Yellow Stool Consistency Soft # Bowel Movements 1 Head Head exam: Present atraumatic and normal inspection Eye Eye exam: Present normal appearance ENT ENT exam: Present mucous membranes moist, normal exam and normal external ear exam Neck Neck exam: Present normal inspection Respiratory Respiratory exam: Present normal respiratory exam Cardiovascular Cardiovascular exam: Present normal rate and rhythm GI/Abdominal GI/Abdominal exam: Present normal bowel sounds Back Exam Back exam: Present normal inspection Neurological Exam Neurological exam: Present alert and oriented X3 Skin Skin exam: Present intact and warm OBJ DATA Labs 07/08/22 05:27 04/12/23 05:07 Labs: Abnormal Lab Results 07/08/22 05:27 WBC 13.0 H RBC 4.25 L Hgb 12.3 L Hct 37.7 L Immature Gran % (Auto) 0.6 H Neut % (Auto) 83.8 H Lymph % (Auto) 8.0 L Lymph # (Auto) 1.04 L [place] # (Auto) 0.91 H Immature Gran # 0.08 H Absolute Neutrophils 10.92 H Meds: Medications Acetaminophen (Acetaminophen 325 Mg Tablet) 650 mg PO Q6HP PRN; Protocol PRN Reason: Per Pain Protocol/Fever > 101 Last Admin: 07/06/22 17:49 Dose: 650 mg Hydrocodone Bitart/Acetaminophen (Hydrocodone/Apap 5/325mg Tablet) 1 tab PO Q4HP PRN; Protocol PRN Reason: Per Pain Protocol Amlodipine Besylate (Amlodipine 5 Mg Tablet) 5 mg PO QDAY [facility] Last Admin: 07/10/22 09:35 Dose: 5 mg Aspirin (Aspirin 81 Mg Tab.Chew) 81 mg PO QDAY [facility] Last Admin: 07/10/22 09:35 Dose: 81 mg Atorvastatin Calcium (Atorvastatin 40 Mg Tablet) 40 mg PO QHS [facility] Last Admin: 07/09/22 21:04 Dose: 40 mg Dextrose (Dextrose 50% 50 Ml Vial) 0 ml IV UD PRN PRN Reason: Per Sliding Scale Diagnostic Test (Pha) (Accu-Chek 1 Each Strip) 1 each FS ACHS [facility] Last Admin: 07/10/22 11:32 Dose: 1 each Docusate Sodium (Docusate Sodium 100 Mg Capsule) 100 mg PO BID [facility] Last Admin: 07/10/22 09:36 Dose: 100 mg Fish Oil (Fish Oil 1,000 Mg Capsule) 1,000 mg PO DAILY [facility] Last Admin: 07/10/22 09:35 Dose: 1,000 mg Gabapentin (Gabapentin 300 Mg Capsule) 300 mg PO QHS [facility] Last Admin: 07/09/22 21:04 Dose: 300 mg Glucose (Dextrose 31 Gm Oral.Susp) 15 gm PO PRN PRN PRN Reason: Hypoglycemia Hydrochlorothiazide (Hydrochlorothiazide 12.5 Mg Capsule) 12.5 mg PO DAILY [facility] Last Admin: 07/10/22 09:36 Dose: 12.5 mg Hydromorphone HCl (Hydromorphone 0.5 Mg/0.5 Ml Syringe) 0.5 mg IV Q2HP PRN; Protocol PRN Reason: Per Pain Protocol Piperacillin Sod/Tazobactam (Sod 4.5 gm/ Dextrose) 50 mls @ 100 mls/hr IV Q8H [facility]; Protocol Last Infusion: 07/10/22 05:06 Dose: Infused Vancomycin HCl 1,500 mg/ (Sodium Chloride) 500 mls @ 333.3 mls/hr IV Q12H [facility] Last Admin: 07/10/22 13:05 Dose: 333 mls/hr Gentamicin Sulfate 40 mg/Clindamycin Phosphate 300 mg/Sodium Chloride 503 mls @ 0 mls/hr IRR Q24H [facility]; Protocol Last Admin: 07/10/22 09:37 Dose: 40 mls/hr Insulin Glargine (Insulin Glargine, Human 1 Unit/0.01 Ml) 30 unit SQ BID [facility] Last Admin: 07/10/22 09:35 Dose: 30 units Insulin Human Lispro (Insulin Lispro 1 Unit/0.01 Ml Unit) 0 unit SQ ACHS [facility]; Protocol Last Admin: 07/10/22 11:31 Dose: Not Given Insulin Human Lispro (Insulin Lispro 1 Unit/0.01 Ml Unit) 0 unit SQ AC [facility] Last Admin: 07/10/22 11:31 Dose: 15 units Levothyroxine Sodium (Levothyroxine 125 Mcg Tablet) 250 mcg PO QAMAC [facility] Last Admin: 07/10/22 07:51 Dose: 250 mcg Loratadine (Loratadine 10 Mg Tablet) 10 mg PO DAILY [facility] Last Admin: 07/10/22 09:36 Dose: 10 mg Melatonin (Melatonin 3 Mg Tablet) 9 mg PO HS [facility] Last Admin: 07/09/22 21:03 Dose: 9 mg Metformin HCl (Metformin 500 Mg Tablet) 1,000 mg PO BIDCC [facility] Last Admin: 07/10/22 08:29 Dose: 1,000 mg Metoprolol Tartrate (Metoprolol Tartrate 25 Mg Tablet) 25 mg PO BID [facility] Last Admin: 07/10/22 09:36 Dose: 25 mg Mupirocin (Mupirocin Oint 2% 22gm) 1 dose NARES BID [facility] Last Admin: 07/10/22 09:36 Dose: 1 dose Olmesartan (Olmesartan Medoxomil 20 Mg Tablet) 40 mg PO DAILY [facility] Last Admin: 07/10/22 09:35 Dose: 40 mg Omeprazole (Omeprazole 20 Mg Capsule) 20 mg PO QAMAC [facility] Last Admin: 07/10/22 07:51 Dose: 20 mg Ondansetron HCl (Ondansetron 4 Mg/2 Ml Vial) 4 mg IV Q6HP PRN PRN Reason: Nausea And Vomiting Briviact 100mg Tab 1 dose PO BID [facility] Last Admin: 07/10/22 09:37 Dose: 1 dose Senna (Sennosides 1 Tablet) 2 tab PO HS [facility] Last Admin: 07/09/22 21:03 Dose: 2 tab Sodium Chloride (0.9 % Sodium Chloride 10 Ml Syringe) 10 ml IV Q8 [facility] Last Admin: 07/10/22 07:51 Dose: 10 ml Vancomycin HCl (Vancomycin Per Pharmacy) 1 order IV UD [facility]; Protocol Venlafaxine HCl (Venlafaxine 150 Mg Cap.Xl.24h) 300 mg PO DAILY [facility] Last Admin: 07/10/22 09:35 Dose: 300 mg A/P Narrative A/P Narrative: Assessment: 61-year-old male with a history of insulin-dependent type 2 diabetes, hypertension, seizure disorder, GERD, obstructive sleep apnea, obesity, peripheral artery disease complicated by multiple amputations including a left BKA and several fingers now admitted for a right heel infection and cellulitis. #Right heel diabetic foot infection and cellulitis status post I&D with deep tissue cultures on 07/07/2022 #Type 2 diabetes mellitus complicated by neuropathy #Peripheral artery disease #Essential hypertension #Seizure disorder #GERD #Obstructive sleep apnea on CPAP #Obesity BMI 39 #History of left BKA and multiple finger amputations Plan -CT roger reveals no signifiant PVD of the RLE. He does have L BKA. -Awaiting ID rec (PO vs IV abx), and he may need outpatient PICC. Patient prefers SNF, will need f/u in wound clinic for VAC -Continue vancomycin IV per pharmacy and Zosyn. -Infectious disease consulted. -Follow-up deep tissue cultures obtained in the OR. -Follow-up blood cultures x2 from the ED currently showing NGTD. -Wound care surgery following, Tuesday. -Lantus 50 units at bedtime, prandial Humalog 1unit to 6 g carb ratio, correction Humalog SSI low-dose. -Analgesics as needed. -Continue home Norvasc, aspirin, Lipitor, gabapentin, levothyroxine, Claritin, Lopressor, olmesartan hand, omeprazole, Brivaracetam. -Consistent carbohydrate diet, n.p.o. after midnight. -CPAP at bedtime. -CODE STATUS: Full -[facility], awaiting ID consult for recommendations regarding antibiotic treatment. Anticipate the patient will discharge to home when stable and an antibiotic treatment plan is in place. Plan of Treatment: Plan: Await ID recommendations about Antibiotics. Daily dressing changes Clean with VASHE, GCB wet dry dressings Cover with Kerlix gauze ABD pad and Kerlix bandage IAN bandage ONCE a day. Anticipate d/c / rehab after weekend. Time Spent With Patient Time: Total time spent is greater than 50% in coordination of care (as documented) at patient's floor/unit and/or counseling patient: Subsequent: Total time with patient: 35 - 49 minutes
[2022-07-10] MEDS: GABAPENTIN 300 MG CAPSULE PO SCH (20:27)
[2022-07-10] MEDS: ATORVASTATIN 40 MG TABLET PO SCH (20:27)
[2022-07-10] MEDS: SENNOSIDES 1 TABLET PO SCH (20:27)
[2022-07-10] MEDS: MELATONIN 3 MG TABLET PO SCH (20:28)
[2022-07-11] MEDS: PIPERACILLIN SODIUM/TAZOBACTAM 4.5 GM in DEXTROSE 5% IN WATER 50 ML IV SCH (05:20)
[2022-07-11] MEDS: 0.9 % SODIUM CHLORIDE 10 ML SYRINGE IV SCH ×4 (05:20→21:14)
[2022-07-11] MEDS: metFORMIN 500 MG TABLET PO SCH ×2 (07:30→17:29)
[2022-07-11] MEDS: OMEPRAZOLE 20 MG CAPSULE PO SCH (07:30)
[2022-07-11] MEDS: INSULIN LISPRO 1 UNIT/0.01 ML UNIT SQ SCH ×7 (07:30→21:12)
[2022-07-11] MEDS: LEVOTHYROXINE 125 MCG TABLET PO SCH (07:34)
--- NOTE | 2022-07-11 07:38 | Internal Med Progress Note ---
SUBJECTIVE Subjective Patient information: Note initiated : 07/11/22 at 7:37 am This is a 61y/o male pmhx HTN, DM s/p left BKA, HTN, HLD, hypothyroidism, seizure disorder, GERD, LEONARD, obesity, PAD complicated by multiple amputations including a left BKA and several fingers admitted on 07/05 after being evaluated by wound care nurse at home with concern of right heel infection after finding malodorous wound with associated erythema. Upon admission, pt was afebrile with stable vital signs. On labs, with mild leukocytosis (11.8k) and increased inflammatory markers (ESR 73, CRP 4.70). Right foot Xray showing4 cm ulceration in the plantar soft tissues over the calcaneus-new from prior exam. No evidence of underlying osteomyelitis. Pt has prior hx of MSSA growing in left foot, Bacteroides bacteremia, and Prevotella species growing from wound. Currently admitted on IV Vancomycin + Zosyn. Patient was seen by outcomes specialist found with right heel black eschar, with DTI stage 4 involving bone and tendon. Today, underwent OR debridement with bone and wound cultures on 07/08. Wound cx growing Streptococcus canis + MSSA. BCx NGTD Principal diagnosis: Nonhealing right heel diabetic foot infection Pertinent ROS: follow up wound culture results Constitutional Vitals: Vital Signs Temp Pulse Resp BP Pulse Ox O2 Del Method O2 Flow Rate 97.6 F 74 18 147/71 99 Room Air 0 07/11/22 03:49 07/11/22 03:49 07/11/22 03:49 07/11/22 03:49 07/11/22 03:49 07/11/22 03:49 07/09/22 16:00 Period Temp Pulse Resp BP Sys/Kay Pulse Ox O2 Del Method O2 Flow Rate Last 24 Hr 96.8 F-98.2 F 71-86 16-18 122-148/60-89 96-100 Room Air-Room Air Intake and Output 07/10/22 07/11/22 07/11/22 19:59 03:59 11:59 Intake Total 1190 950 50 Output Total 200 1000 Balance 990 -50 50 Weight 306 lb 3.2 oz Intake & Output: Intake & Output 07/10/22 07/11/22 07/11/22 19:59 03:59 11:59 Intake Total 1190 950 50 Output Total 200 1000 Balance 990 -50 50 Weight 306 lb 3.2 oz Intake: IV 550 550 50 Zosyn 4.5 gm In Dextrose 5% in 50 50 50 Water 50 ml @ 100 mls/hr IV Q8H [facility] Rx#:[id number] Vancomycin 1,500 mg In Sodium 500 500 Chloride 0.9% 500 ml @ 333.3 mls/hr IV Q12H [facility] Rx#: [id number] Oral 240 400 GI Tube Flush 400 Output: Void Amount 200 1000 Other: Urine Appearance Clear Clear Urine Color Pale Yellow Stool Size Copious Large Large Stool Color Brown Brown Brown Green Yellow Stool Consistency Normal for Patient Normal for Patient Soft Soft Soft # Voids 1 # Bowel Movements 1 1 General appearance: no acute distress and obese Head Head exam: Present atraumatic and normocephalic Eye Eye exam: Present EOMI and PERRL Neck Neck exam: Present full ROM Respiratory Respiratory exam: Present normal respiratory exam GI/Abdominal GI/Abdominal exam: Present normal bowel sounds and soft Expanded Lower Extremity Exam Leg image: 1. Left BKA 2. Rt foot bandage, see wound care's note Neurological Exam Neurological exam: Present alert and oriented X3 OBJ DATA Labs 07/08/22 05:27 07/07/22 05:07 Meds: Medications Acetaminophen (Acetaminophen 325 Mg Tablet) 650 mg PO Q6HP PRN; Protocol PRN Reason: Per Pain Protocol/Fever > 101 Last Admin: 07/06/22 17:49 Dose: 650 mg Hydrocodone Bitart/Acetaminophen (Hydrocodone/Apap 5/325mg Tablet) 1 tab PO Q4HP PRN; Protocol PRN Reason: Per Pain Protocol Amlodipine Besylate (Amlodipine 5 Mg Tablet) 5 mg PO QDAY [facility] Last Admin: 07/10/22 09:35 Dose: 5 mg Aspirin (Aspirin 81 Mg Tab.Chew) 81 mg PO QDAY [facility] Last Admin: 07/10/22 09:35 Dose: 81 mg Atorvastatin Calcium (Atorvastatin 40 Mg Tablet) 40 mg PO QHS [facility] Last Admin: 07/10/22 20:27 Dose: 40 mg Dextrose (Dextrose 50% 50 Ml Vial) 0 ml IV UD PRN PRN Reason: Per Sliding Scale Diagnostic Test (Pha) (Accu-Chek 1 Each Strip) 1 each FS ACHS [facility] Last Admin: 07/11/22 07:31 Dose: 1 each Docusate Sodium (Docusate Sodium 100 Mg Capsule) 100 mg PO BID [facility] Last Admin: 07/10/22 20:28 Dose: 100 mg Fish Oil (Fish Oil 1,000 Mg Capsule) 1,000 mg PO DAILY [facility] Last Admin: 07/10/22 09:35 Dose: 1,000 mg Gabapentin (Gabapentin 300 Mg Capsule) 300 mg PO QHS [facility] Last Admin: 07/10/22 20:27 Dose: 300 mg Glucose (Dextrose 31 Gm Oral.Susp) 15 gm PO PRN PRN PRN Reason: Hypoglycemia Hydrochlorothiazide (Hydrochlorothiazide 12.5 Mg Capsule) 12.5 mg PO DAILY [facility] Last Admin: 07/10/22 09:36 Dose: 12.5 mg Hydromorphone HCl (Hydromorphone 0.5 Mg/0.5 Ml Syringe) 0.5 mg IV Q2HP PRN; Protocol PRN Reason: Per Pain Protocol Piperacillin Sod/Tazobactam (Sod 4.5 gm/ Dextrose) 50 mls @ 100 mls/hr IV Q8H [facility]; Protocol Last Infusion: 07/11/22 05:56 Dose: Infused Vancomycin HCl 1,500 mg/ (Sodium Chloride) 500 mls @ 333.3 mls/hr IV Q12H [facility] Last Infusion: 07/11/22 00:39 Dose: Infused Gentamicin Sulfate 40 mg/Clindamycin Phosphate 300 mg/Sodium Chloride 503 mls @ 0 mls/hr IRR Q24H [facility]; Protocol Last Admin: 07/10/22 09:37 Dose: 40 mls/hr Insulin Glargine (Insulin Glargine, Human 1 Unit/0.01 Ml) 30 unit SQ BID [facility] Last Admin: 07/10/22 20:26 Dose: 30 units Insulin Human Lispro (Insulin Lispro 1 Unit/0.01 Ml Unit) 0 unit SQ ACHS [facility]; Protocol Last Admin: 07/11/22 07:30 Dose: 2 units Insulin Human Lispro (Insulin Lispro 1 Unit/0.01 Ml Unit) 0 unit SQ AC [facility] Last Admin: 07/11/22 07:31 Dose: 5 units Levothyroxine Sodium (Levothyroxine 125 Mcg Tablet) 250 mcg PO QAMAC [facility] Last Admin: 07/11/22 07:34 Dose: 250 mcg Loratadine (Loratadine 10 Mg Tablet) 10 mg PO DAILY [facility] Last Admin: 07/10/22 09:36 Dose: 10 mg Melatonin (Melatonin 3 Mg Tablet) 9 mg PO HS [facility] Last Admin: 07/10/22 20:28 Dose: 9 mg Metformin HCl (Metformin 500 Mg Tablet) 1,000 mg PO BIDCC [facility] Last Admin: 07/11/22 07:30 Dose: 1,000 mg Metoprolol Tartrate (Metoprolol Tartrate 25 Mg Tablet) 25 mg PO BID [facility] Last Admin: 07/10/22 20:28 Dose: 25 mg Mupirocin (Mupirocin Oint 2% 22gm) 1 dose NARES BID [facility] Last Admin: 07/10/22 20:26 Dose: 1 dose Olmesartan (Olmesartan Medoxomil 20 Mg Tablet) 40 mg PO DAILY [facility] Last Admin: 07/10/22 09:35 Dose: 40 mg Omeprazole (Omeprazole 20 Mg Capsule) 20 mg PO QAMAC [facility] Last Admin: 07/11/22 07:30 Dose: 20 mg Ondansetron HCl (Ondansetron 4 Mg/2 Ml Vial) 4 mg IV Q6HP PRN PRN Reason: Nausea And Vomiting Briviact 100mg Tab 1 dose PO BID [facility] Last Admin: 07/10/22 20:27 Dose: 1 dose Senna (Sennosides 1 Tablet) 2 tab PO [facility] Last Admin: 07/10/22 20:27 Dose: 2 tab Sodium Chloride (0.9 % Sodium Chloride 10 Ml Syringe) 10 ml IV Q8 [facility] Last Admin: 07/11/22 05:20 Dose: 10 ml Vancomycin HCl (Vancomycin Per Pharmacy) 1 order IV UD [facility]; Protocol Venlafaxine HCl (Venlafaxine 150 Mg Cap.Xl.24h) 300 mg PO DAILY [facility] Last Admin: 07/10/22 09:35 Dose: 300 mg A/P Assessment and plan (1) Osteomyelitis of right foot: Assessment and plan: This is a 61y/o male pmhx HTN, DM s/p left BKA, HTN, HLD, hypothyroidism, seizur e disorder, GERD, LEONARD, obesity, PAD complicated by multiple amputations including a left BKA and several fingers admitted on 07/05 after developing right heel infection 2 weeks ago. On labs, with mild leukocytosis and increased inflammatory markers. Right foot Xray showing4 cm ulceration in the plantar soft tissues over the calcaneus-new from prior exam. No evidence of underlying osteomyelitis. Patient was seen by outcomes specialist found with right heel black eschar, with DTI stage 4 involving bone and tendon s/p OR debridement on 07/07. Wound cx growing MSSA + Strept canis. Plan: - place PICC line - discontinue Vancomycin - discontinue Zosyn - start Ceftriaxone 2g IV daily; will need a minimum 4 week course treatment - explained to the patient that based on improvement we could stop at 4 weeks but can extend to 6 weeks if slow healing - will need weekly monitoring cbc+diff, cmp, ESR, CRP while on IV Ceftriaxone - please schedule ID clinic visit upon discharge - follow up with Wound care outpatient as well - counseled on avoiding his pets licking his wounds as they can reintroduce bacteria in the open skin Status: Acute (2) Non-healing open wound of right heel: Status: Acute (3) MSSA infection, non-invasive: Status: Acute (4) Streptococcus infection: Status: Acute Time Spent With Patient Time: Total time spent is greater than 50% in coordination of care (as documented) at patient's floor/unit and/or counseling patient: Subsequent: Total time with patient: 25 - 34 minutes Total Critical Care Time: 30 (minutes) Attestation: [facility] Weller #[phone]
--- NOTE | 2022-07-11 09:16 | Internal Med Progress Note ---
SUBJECTIVE Subjective Patient information: Note initiated : 07/11/22 at 9:15 am Service Date, if different from initiated Date: [] Patient: Aravind Ashley 61 y/o M admitted on 07/05/22 for foot wound. Chief Complaint: [] Principal diagnosis: Nonhealing right heel diabetic foot infection Interval history: Mr. Ashley is a 61-year-old male with a history of insulin-dependent type 2 diabetes, hypertension, seizure disorder, GERD, obstructive sleep apnea, obesity, peripheral artery disease complicated by multiple amputations including a left BKA and several fingers presented to the ED at the recommendation of wound care for further evaluation of a right heel wound. The patient says that he first noticed the heel wound in May and it has progressively worsened. The patient follows in the wound care clinic and was supposed to have a debridement done by Dr. Bermudez on 07/07/2022. In the emergency department, the patient was afebrile, had mild leukocytosis, no evidence of sepsis however the patient does clearly have an infection in his right heel. CRP was 4.3, ESR 73. The patient says that he has had prior right lower extremity angiography which showed peripheral arterial disease however it was not amenable to correction by IR. He had a left BKA after developing a left foot infection a while ago. He says at that time he was septic and required transfer to higher level of care and ultimately received the BKA during the hospitalization. 07/06 No significant events overnight, stable glycemic control, hemoglobin A1c was 8.5. CTA right lower extremity showed right iliac femoral and popliteal inflow widely patent, right anterior tibial and posterior tibial arteries are patent to the foot level but riddled with multiple stenosis greater than 50%, the right peroneal artery is occluded in the distal calf. Continues on broad-spectrum antibiotics, surgery planned for tomorrow. 07/07 Stable overnight, patient was taken to the OR for debridement of his heel wound earlier today. Discussed with Tuesday after surgery, Dr. Bermudez he thinks there may be osteomyelitis of the calcaneus bone. Infectious disease consulted. Continues on vancomycin IV dosed by pharmacy and Zosyn. 07/08: I took over the care of this patient today which point he is medically stable. He is calm, pleasant and cooperative. He has no active medical complaints today. 07/09: The patient was working with physical therapy this morning. Discussed the case with Dr. Sierra. The patient is otherwise doing quite well. 07/10: Patient is doing well. He has no active complaints or concerns. 07/11: Patient remains in good spirits. He is hoping he can [facility] tomorrow. Constitutional Vitals: Vital Signs Temp Pulse Resp BP Pulse Ox O2 Del Method O2 Flow Rate 97.3 F 81 16 144/80 94 Room Air 0 07/11/22 08:00 07/11/22 08:00 07/11/22 08:00 07/11/22 08:00 07/11/22 08:00 07/11/22 08:00 07/09/22 16:00 Period Temp Pulse Resp BP Sys/Kay Pulse Ox O2 Del Method O2 Flow Rate Last 24 Hr 96.8 F-97.6 F 71-86 16-18 122-147/60-89 94-100 Room Air-Room Air Intake and Output 07/10/22 07/11/22 07/11/22 19:59 03:59 11:59 Intake Total 1190 950 50 Output Total 200 1000 Balance 990 -50 50 Weight 138.89 kg Intake & Output: Intake & Output 07/10/22 07/11/22 07/11/22 19:59 03:59 11:59 Intake Total 1190 950 50 Output Total 200 1000 Balance 990 -50 50 Weight 138.89 kg Intake: IV 550 550 50 Zosyn 4.5 gm In Dextrose 5% in 50 50 50 Water 50 ml @ 100 mls/hr IV Q8H [facility] Rx#:[id number] Vancomycin 1,500 mg In Sodium 500 500 Chloride 0.9% 500 ml @ 333.3 mls/hr IV Q12H [facility] Rx#: [id number] Oral 240 400 GI Tube Flush 400 Output: Void Amount 200 1000 Other: Urine Appearance Clear Clear Urine Color Pale Yellow Stool Size Copious Large Large Stool Color Brown Brown Brown Green Yellow Stool Consistency Normal for Patient Normal for Patient Soft Soft Soft # Voids 1 # Bowel Movements 1 1 Head Head exam: Present atraumatic and normal inspection Eye Eye exam: Present normal appearance ENT ENT exam: Present mucous membranes moist, normal exam and normal external ear exam Neck Neck exam: Present normal inspection Respiratory Respiratory exam: Present normal respiratory exam Cardiovascular Cardiovascular exam: Present normal rate and rhythm GI/Abdominal GI/Abdominal exam: Present normal bowel sounds Back Exam Back exam: Present normal inspection Neurological Exam Neurological exam: Present alert and oriented X3 Skin Skin exam: Present intact and warm OBJ DATA Labs 07/08/22 05:27 07/07/22 05:07 Meds: Medications Acetaminophen (Acetaminophen 325 Mg Tablet) 650 mg PO Q6HP PRN; Protocol PRN Reason: Per Pain Protocol/Fever > 101 Last Admin: 07/06/22 17:49 Dose: 650 mg Hydrocodone Bitart/Acetaminophen (Hydrocodone/Apap 5/325mg Tablet) 1 tab PO Q4HP PRN; Protocol PRN Reason: Per Pain Protocol Amlodipine Besylate (Amlodipine 5 Mg Tablet) 5 mg PO QDAY [facility] Last Admin: 07/10/22 09:35 Dose: 5 mg Aspirin (Aspirin 81 Mg Tab.Chew) 81 mg PO QDAY [facility] Last Admin: 07/10/22 09:35 Dose: 81 mg Atorvastatin Calcium (Atorvastatin 40 Mg Tablet) 40 mg PO QHS [facility] Last Admin: 07/10/22 20:27 Dose: 40 mg Cefazolin Sodium (Cefazolin 1 Gm Vial) 2 gm IV Q8H [facility]; Protocol Dextrose (Dextrose 50% 50 Ml Vial) 0 ml IV UD PRN PRN Reason: Per Sliding Scale Diagnostic Test (Pha) (Accu-Chek 1 Each Strip) 1 each FS ACHS [facility] Last Admin: 07/11/22 07:31 Dose: 1 each Docusate Sodium (Docusate Sodium 100 Mg Capsule) 100 mg PO BID [facility] Last Admin: 07/10/22 20:28 Dose: 100 mg Fish Oil (Fish Oil 1,000 Mg Capsule) 1,000 mg PO DAILY [facility] Last Admin: 07/10/22 09:35 Dose: 1,000 mg Gabapentin (Gabapentin 300 Mg Capsule) 300 mg PO QHS [facility] Last Admin: 07/10/22 20:27 Dose: 300 mg Glucose (Dextrose 31 Gm Oral.Susp) 15 gm PO PRN PRN PRN Reason: Hypoglycemia Hydrochlorothiazide (Hydrochlorothiazide 12.5 Mg Capsule) 12.5 mg PO DAILY [facility] Last Admin: 07/10/22 09:36 Dose: 12.5 mg Hydromorphone HCl (Hydromorphone 0.5 Mg/0.5 Ml Syringe) 0.5 mg IV Q2HP PRN; Protocol PRN Reason: Per Pain Protocol Piperacillin Sod/Tazobactam (Sod 4.5 gm/ Dextrose) 50 mls @ 100 mls/hr IV Q8H [facility]; Protocol Last Infusion: 07/11/22 05:56 Dose: Infused Gentamicin Sulfate 40 mg/Clindamycin Phosphate 300 mg/Sodium Chloride 503 mls @ 0 mls/hr IRR Q24H [facility]; Protocol Last Admin: 07/10/22 09:37 Dose: 40 mls/hr Insulin Glargine (Insulin Glargine, Human 1 Unit/0.01 Ml) 30 unit SQ BID [facility] Last Admin: 07/10/22 20:26 Dose: 30 units Insulin Human Lispro (Insulin Lispro 1 Unit/0.01 Ml Unit) 0 unit SQ ACHS [facility]; Protocol Last Admin: 07/11/22 07:30 Dose: 2 units Insulin Human Lispro (Insulin Lispro 1 Unit/0.01 Ml Unit) 0 unit SQ AC [facility] Last Admin: 07/11/22 07:31 Dose: 5 units Levothyroxine Sodium (Levothyroxine 125 Mcg Tablet) 250 mcg PO QAMAC [facility] Last Admin: 07/11/22 07:34 Dose: 250 mcg Loratadine (Loratadine 10 Mg Tablet) 10 mg PO DAILY [facility] Last Admin: 07/10/22 09:36 Dose: 10 mg Melatonin (Melatonin 3 Mg Tablet) 9 mg PO HS [facility] Last Admin: 07/10/22 20:28 Dose: 9 mg Metformin HCl (Metformin 500 Mg Tablet) 1,000 mg PO BIDCC [facility] Last Admin: 07/11/22 07:30 Dose: 1,000 mg Metoprolol Tartrate (Metoprolol Tartrate 25 Mg Tablet) 25 mg PO BID [facility] Last Admin: 07/10/22 20:28 Dose: 25 mg Mupirocin (Mupirocin Oint 2% 22gm) 1 dose NARES BID [facility] Last Admin: 07/10/22 20:26 Dose: 1 dose Olmesartan (Olmesartan Medoxomil 20 Mg Tablet) 40 mg PO DAILY [facility] Last Admin: 07/10/22 09:35 Dose: 40 mg Omeprazole (Omeprazole 20 Mg Capsule) 20 mg PO QAMAC [facility] Last Admin: 07/11/22 07:30 Dose: 20 mg Ondansetron HCl (Ondansetron 4 Mg/2 Ml Vial) 4 mg IV Q6HP PRN PRN Reason: Nausea And Vomiting Briviact 100mg Tab 1 dose PO BID [facility] Last Admin: 07/10/22 20:27 Dose: 1 dose Senna (Sennosides 1 Tablet) 2 tab PO HS [facility] Last Admin: 07/10/22 20:27 Dose: 2 tab Sodium Chloride (0.9 % Sodium Chloride 10 Ml Syringe) 10 ml IV Q8 [facility] Last Admin: 07/11/22 05:20 Dose: 10 ml Venlafaxine HCl (Venlafaxine 150 Mg Cap.Xl.24h) 300 mg PO DAILY [facility] Last Admin: 07/10/22 09:35 Dose: 300 mg A/P Narrative A/P Narrative: Assessment: 61-year-old male with a history of insulin-dependent type 2 diabetes, hypertension, seizure disorder, GERD, obstructive sleep apnea, obesity, peripheral artery disease complicated by multiple amputations including a left BKA and several fingers now admitted for a right heel infection and cellulitis. #Right heel diabetic foot infection and cellulitis status post I&D with deep tissue cultures on 07/07/2022 #Type 2 diabetes mellitus complicated by neuropathy #Peripheral artery disease #Essential hypertension #Seizure disorder #GERD #Obstructive sleep apnea on CPAP #Obesity BMI 39 #History of left BKA and multiple finger amputations Plan -CT roger reveals no signifiant PVD of the RLE. He does have L BKA. -Wound cultures reveal MSSA and I will discontinue vancomycin today and switch to Ancef. Further ID recommendations are pending. -Awaiting ID rec (PO vs IV abx), and he may need outpatient PICC. Patient prefers SNF, will need f/u in wound clinic for VAC -Infectious disease consulted. -Follow-up deep tissue cultures obtained in the OR-> MSSA -Follow-up blood cultures x2 from the ED currently showing NGTD. -Wound care surgery following, Tuesday. -Lantus 50 units at bedtime, prandial Humalog 1unit to 6 g carb ratio, correction Humalog SSI low-dose. -Analgesics as needed. -Continue home Norvasc, aspirin, Lipitor, gabapentin, levothyroxine, Claritin, Lopressor, olmesartan hand, omeprazole, Brivaracetam. -Consistent carbohydrate diet, n.p.o. after midnight. -CPAP at bedtime. -CODE STATUS: Full -Disposition: Inpatient MedSurg, awaiting ID consult for recommendations regarding antibiotic treatment. Anticipate the patient will discharge to home when stable and an antibiotic treatment plan is in place. Plan of Treatment: Plan: Await ID recommendations about Antibiotics. Daily dressing changes Clean with VASHE, GCB wet dry dressings Cover with Kerlix gauze ABD pad and Kerlix bandage IAN bandage ONCE a day. Anticipate d/c / rehab after weekend. Time Spent With Patient Time: Total time spent is greater than 50% in coordination of care (as documented) at patient's floor/unit and/or counseling patient: Subsequent: Total time with patient: 35 - 49 minutes
[2022-07-11] MEDS: BRIVIACT 100 MG PO SCH ×2 (09:19→21:08)
[2022-07-11] MEDS: GENTAMICIN SULFATE 40 MG, CLINDAMYCIN 300 MG in SODIUM CHLORIDE IRRIG SOLUTION 500 ML IRR SCH (09:19)
[2022-07-11] MEDS: MUPIROCIN OINT 2% 22GM NARES SCH ×2 (09:19→21:06)
[2022-07-11] MEDS: METOPROLOL TARTRATE 25 MG TABLET PO SCH ×2 (09:20→21:06)
[2022-07-11] MEDS: HYDROCHLOROTHIAZIDE 12.5 MG CAPSULE PO SCH (09:20)
[2022-07-11] MEDS: DOCUSATE SODIUM 100 MG CAPSULE PO SCH ×2 (09:20→21:06)
[2022-07-11] MEDS: amLODIPine 5 MG TABLET PO SCH (09:20)
[2022-07-11] MEDS: LORATADINE 10 MG TABLET PO SCH (09:20)
[2022-07-11] MEDS: FISH OIL 1,000 MG CAPSULE PO SCH (09:21)
[2022-07-11] MEDS: ASPIRIN 81 MG TAB.CHEW PO SCH (09:21)
[2022-07-11] MEDS: OLMESARTAN MEDOXOMIL 20 MG TABLET PO SCH (09:21)
[2022-07-11] MEDS: VENLAFAXINE 150 MG CAP.XL.24H PO SCH (09:21)
[2022-07-11] MEDS: INSULIN GLARGINE, HUMAN 1 UNIT/0.01 ML SQ SCH ×2 (09:24→22:14)
[2022-07-11] MEDS: ceFAZolin 1 GM VIAL IV SCH ×3 (09:35→21:05)
[2022-07-11] MEDS: VANCOMYCIN 1,500 MG in 0.9 % SODIUM CHLORIDE 500 ML IV SCH (09:36)
--- NOTE | 2022-07-11 14:58 | Internal Med Progress Note ---
SUBJECTIVE Subjective Patient information: Note initiated : 07/11/22 at 2:50 pm Service Date, if different from initiated Date: [] Patient: Aravind Ashley 61 y/o M admitted on 07/05/22 for foot wound. Chief Complaint: [] Principal diagnosis: Nonhealing right heel diabetic foot infection Interval history: Mr. Ashley is a 61-year-old male with a history of insulin-dependent type 2 diabetes, hypertension, seizure disorder, GERD, obstructive sleep apnea, obesity, peripheral artery disease complicated by multiple amputations including a left BKA and several fingers presented to the ED at the recommendation of wound care for further evaluation of a right heel wound. The patient says that he first noticed the heel wound in May and it has progressively worsened. The patient follows in the wound care clinic and was supposed to have a debridement done by Dr. Bermudez on 07/07/2022. In the emergency department, the patient was afebrile, had mild leukocytosis, no evidence of sepsis however the patient does clearly have an infection in his right heel. CRP was 4.3, ESR 73. The patient says that he has had prior right lower extremity angiography which showed peripheral arterial disease however it was not amenable to correction by IR. He had a left BKA after developing a left foot infection a while ago. He says at that time he was septic and required transfer to higher level of care and ultimately received the BKA during the hospitalization. 07/06 No significant events overnight, stable glycemic control, hemoglobin A1c was 8.5. CTA right lower extremity showed right iliac femoral and popliteal inflow widely patent, right anterior tibial and posterior tibial arteries are patent to the foot level but riddled with multiple stenosis greater than 50%, the right peroneal artery is occluded in the distal calf. Continues on broad-spectrum antibiotics, surgery planned for tomorrow. 07/07 Stable overnight, patient was taken to the OR for debridement of his heel wound earlier today. Discussed with Tuesday after surgery, Dr. Bermudez he thinks there may be osteomyelitis of the calcaneus bone. Infectious disease consulted. Continues on vancomycin IV dosed by pharmacy and Zosyn. 07/08: I took over the care of this patient today which point he is medically stable. He is calm, pleasant and cooperative. He has no active medical complaints today. 07/09: The patient was working with physical therapy this morning. Discussed the case with Dr. Sierra. The patient is otherwise doing quite well. 07/10: Patient is doing well. He has no active complaints or concerns. 07/11: Patient remains in good spirits. He is hoping he can [facility] to [facility] tomorrow. 07/12 Review of Systems: denies headache/fever/chills/nausea/vomiting/chest or abdominal pain/cough/dyspnea/diarrhea. Otherwise see above. PHYSICAL EXAM General: Alert, Awake, No acute Distress, obese Eyes/N/T: EOMI, no scleral icterus, Head/Neck: neck supple, full ROM, CV: RRR, No murmurs, Pulm: Clear b/l, no wheezing/rhonchi/rales, no respiratory distress Abd: soft, nontender, +BS x4 Ext: no clubbing/cyanosis/edema, nontender Neuro: Alert, no focal deficits, moves all extremities, sensations intact b/l upper/lower Psychiatric: Skin: warm/dry, normal color Constitutional Vitals: Vital Signs Temp Pulse Resp BP Pulse Ox O2 Del Method O2 Flow Rate 96.8 F L 87 16 132/81 100 Room Air 0 07/11/22 12:00 07/11/22 12:00 07/11/22 12:00 07/11/22 12:00 07/11/22 12:00 07/11/22 12:00 07/09/22 16:00 Period Temp Pulse Resp BP Sys/Kay Pulse Ox O2 Del Method O2 Flow Rate Last 24 Hr 96.8 F-97.6 F 71-87 16-18 122-147/60-89 94-100 Room Air-Room Air Intake and Output 07/11/22 07/11/22 07/11/22 03:59 11:59 19:59 Intake Total 950 50 Output Total 1000 Balance -50 50 Weight 138.89 kg Intake & Output: Intake & Output 07/11/22 07/11/22 07/11/22 03:59 11:59 19:59 Intake Total 950 50 Output Total 1000 Balance -50 50 Weight 138.89 kg Intake: IV 550 50 Zosyn 4.5 gm In Dextrose 5% in 50 50 Water 50 ml @ 100 mls/hr IV Q8H [facility] Rx#:[id number] Vancomycin 1,500 mg In Sodium 500 Chloride 0.9% 500 ml @ 333.3 mls/hr IV Q12H [facility] Rx#: [id number] Oral 400 Output: Void Amount 1000 Other: Urine Appearance Clear Clear Urine Color Yellow Yellow Pale Urine Odor Normal Stool Size Large Large Copious Stool Color Brown Brown Brown Yellow Stool Consistency Normal for Patient Soft Soft Soft # Voids 1 # Bowel Movements 1 1 1 OBJ DATA Labs 07/08/22 05:27 07/07/22 05:07 Meds: Medications Acetaminophen (Acetaminophen 325 Mg Tablet) 650 mg PO Q6HP PRN; Protocol PRN Reason: Per Pain Protocol/Fever > 101 Last Admin: 07/06/22 17:49 Dose: 650 mg Hydrocodone Bitart/Acetaminophen (Hydrocodone/Apap 5/325mg Tablet) 1 tab PO Q4HP PRN; Protocol PRN Reason: Per Pain Protocol Amlodipine Besylate (Amlodipine 5 Mg Tablet) 5 mg PO QDAY [facility] Last Admin: 07/11/22 09:20 Dose: 5 mg Aspirin (Aspirin 81 Mg Tab.Chew) 81 mg PO QDAY [facility] Last Admin: 07/11/22 09:21 Dose: 81 mg Atorvastatin Calcium (Atorvastatin 40 Mg Tablet) 40 mg PO QHS [facility] Last Admin: 07/10/22 20:27 Dose: 40 mg Cefazolin Sodium (Cefazolin 1 Gm Vial) 2 gm IV Q8H [facility]; Protocol Last Admin: 07/11/22 09:35 Dose: 2 gm Dextrose (Dextrose 50% 50 Ml Vial) 0 ml IV UD PRN PRN Reason: Per Sliding Scale Diagnostic Test (Pha) (Accu-Chek 1 Each Strip) 1 each FS ACHS [facility] Last Admin: 07/11/22 11:58 Dose: 1 each Docusate Sodium (Docusate Sodium 100 Mg Capsule) 100 mg PO BID [facility] Last Admin: 07/11/22 09:20 Dose: 100 mg Fish Oil (Fish Oil 1,000 Mg Capsule) 1,000 mg PO DAILY [facility] Last Admin: 07/11/22 09:21 Dose: 1,000 mg Gabapentin (Gabapentin 300 Mg Capsule) 300 mg PO QHS [facility] Last Admin: 07/10/22 20:27 Dose: 300 mg Glucose (Dextrose 31 Gm Oral.Susp) 15 gm PO PRN PRN PRN Reason: Hypoglycemia Hydrochlorothiazide (Hydrochlorothiazide 12.5 Mg Capsule) 12.5 mg PO DAILY [facility] Last Admin: 07/11/22 09:20 Dose: 12.5 mg Hydromorphone HCl (Hydromorphone 0.5 Mg/0.5 Ml Syringe) 0.5 mg IV Q2HP PRN; Protocol PRN Reason: Per Pain Protocol Gentamicin Sulfate 40 mg/Clindamycin Phosphate 300 mg/Sodium Chloride 503 mls @ 0 mls/hr IRR Q24H [facility]; Protocol Last Admin: 07/11/22 09:19 Dose: 40 mls/hr Insulin Glargine (Insulin Glargine, Human 1 Unit/0.01 Ml) 30 unit SQ BID [facility] Last Admin: 07/11/22 09:24 Dose: Not Given Insulin Human Lispro (Insulin Lispro 1 Unit/0.01 Ml Unit) 0 unit SQ ACHS [facility]; Protocol Last Admin: 07/11/22 11:48 Dose: Not Given Insulin Human Lispro (Insulin Lispro 1 Unit/0.01 Ml Unit) 0 unit SQ AC [facility] Last Admin: 07/11/22 11:59 Dose: 12 units Levothyroxine Sodium (Levothyroxine 125 Mcg Tablet) 250 mcg PO QAMAC [facility] Last Admin: 07/11/22 07:34 Dose: 250 mcg Loratadine (Loratadine 10 Mg Tablet) 10 mg PO DAILY [facility] Last Admin: 07/11/22 09:20 Dose: 10 mg Melatonin (Melatonin 3 Mg Tablet) 9 mg PO HS [facility] Last Admin: 07/10/22 20:28 Dose: 9 mg Metformin HCl (Metformin 500 Mg Tablet) 1,000 mg PO BIDCC [facility] Last Admin: 07/11/22 07:30 Dose: 1,000 mg Metoprolol Tartrate (Metoprolol Tartrate 25 Mg Tablet) 25 mg PO BID [facility] Last Admin: 07/11/22 09:20 Dose: 25 mg Mupirocin (Mupirocin Oint 2% 22gm) 1 dose NARES BID [facility] Last Admin: 07/11/22 09:19 Dose: 1 dose Olmesartan (Olmesartan Medoxomil 20 Mg Tablet) 40 mg PO DAILY [facility] Last Admin: 07/11/22 09:21 Dose: 40 mg Omeprazole (Omeprazole 20 Mg Capsule) 20 mg PO QAMAC [facility] Last Admin: 07/11/22 07:30 Dose: 20 mg Ondansetron HCl (Ondansetron 4 Mg/2 Ml Vial) 4 mg IV Q6HP PRN PRN Reason: Nausea And Vomiting Briviact 100mg Tab 1 dose PO BID [facility] Last Admin: 07/11/22 09:19 Dose: 1 dose Senna (Sennosides 1 Tablet) 2 tab PO HS [facility] Last Admin: 07/10/22 20:27 Dose: 2 tab Sodium Chloride (0.9 % Sodium Chloride 10 Ml Syringe) 10 ml IV Q8 [facility] Last Admin: 07/11/22 05:20 Dose: 10 ml Venlafaxine HCl (Venlafaxine 150 Mg Cap.Xl.24h) 300 mg PO DAILY [facility] Last Admin: 07/11/22 09:21 Dose: 300 mg A/P Narrative A/P Narrative: A: #Right heel diabetic foot infection/cellulitis?osteomyelitis: s/p I&D (07/07) -CT roger reveals no signifiant PVD of the RLE. He does have L BKA. -Wound cultures reveal MSSA & Strep #DM2 w/neuropathy: #Peripheral artery disease #Essential hypertension #Seizure disorder #GERD #Anemia: #Obstructive sleep apnea on CPAP #Obesity BMI 39 #History of left BKA and multiple finger amputations Plan: -ID following> rocephing 2g qd x4 weeks, up to 6wks if necessary. weekly cbc+diff/esr/crp/cmp while on iv abx, f/u outpt -PICC -Wound care surgery following, -Lantus 50 units at bedtime, prandial Humalog 1unit to 6 g carb ratio, correction Humalog SSI low-dose. -Analgesics as needed. -Continue home Norvasc, aspirin, Lipitor, gabapentin, levothyroxine, Claritin, Lopressor, olmesartan hand, omeprazole, Brivaracetam. -Consistent carbohydrate diet\ -CPAP at bedtime. -CM for placement needs -ppx: lovenox CODE STATUS: Plush Brusher Spent With Patient Time: Total time spent is greater than 50% in coordination of care (as documented) at patient's floor/unit and/or counseling patient:
--- NOTE | 2022-07-11 15:02 | Discharge Summary ---
Discharge Provider Provider IMPORTANT FOLLOW-UP INFORMATION FOR PCP: Patient information: Note initiated : 07/11/22 at 2:58 pm Service Date, if different from initiated Date: [] Patient: Aravind Ashley 61 y/o M admitted on 07/05/22 for foot wound. Chief Complaint: [] Date of admission: 07/05/22 19:24 Discharge date: 07/12/22 Primary care physician: Josiah Espinosa Consults: 07/05/22 Consult to Physician [CONS] Stat Comment: Consulting Provider: Reynaldo Sierra Reason For Exam: Physician to Consult Consult to Physician [CONS] Stat Comment: Consulting Provider: Jd Traore Reason For Exam: Physician to Consult 07/07/22 12:14 Consult to Physician [CONS] Routine Comment: Consulting Provider: Fahad GUZMAN Reason For Exam: Physician to Consult 07/07/22 14:31 Consult to Physician [CONS] Routine Comment: SNF referral Consulting Provider: [facility] Kristan Reason For Exam: Physician to Consult COURSE Hospital Course Hospital course: HPI: Mr. Ashley is a 61-year-old male with a history of insulin-dependent type 2 diabetes, hypertension, seizure disorder, GERD, obstructive sleep apnea, obesity, peripheral artery disease complicated by multiple amputations including a left BKA and several fingers presented to the ED at the recommendation of wound care for further evaluation of a right heel wound. The patient says that he first noticed the heel wound in May and it has progressively worsened. The patient follows in the wound care clinic and was supposed to have a debridement done by Dr. Bermudez on 07/07/2022. In the emergency department, the patient was afebrile, had mild leukocytosis, no evidence of sepsis however the patient does clearly have an infection in his right heel. CRP was 4.3, ESR 73. The patient says that he has had prior right lower extremity angiography which showed peripheral arterial disease however it was not amenable to correction by IR. He had a left BKA after developing a left foot infection a while ago. He says at that time he was septic and required transfer to higher level of care and ultimately received the BKA during the hospitalization. 07/06 No significant events overnight, stable glycemic control, hemoglobin A1c was 8.5. CTA right lower extremity showed right iliac femoral and popliteal inflow widely patent, right anterior tibial and posterior tibial arteries are patent to the foot level but riddled with multiple stenosis greater than 50%, the right peroneal artery is occluded in the distal calf. Continues on broad-spectrum antibiotics, surgery planned for tomorrow. 07/07 Stable overnight, patient was taken to the OR for debridement of his heel wound earlier today. Discussed with Tuesday after surgery, Dr. Quinned he thinks there may be osteomyelitis of the calcaneus bone. Infectious disease consulted. Continues on vancomycin IV dosed by pharmacy and Zosyn. 07/08: I took over the care of this patient today which point he is medically stable. He is calm, pleasant and cooperative. He has no active medical complaints today. 07/09: The patient was working with physical therapy this morning. Discussed the case with Dr. Sierra. The patient is otherwise doing quite well. 07/10: Patient is doing well. He has no active complaints or concerns. 07/11: Patient remains in good spirits. He is hoping he [facility]. 07/12 No overnight event or new complaints. Final recs per ID given. A: #Right heel diabetic foot infection/cellulitis?osteomyelitis: s/p I&D (07/07) -CT roger reveals no signifiant PVD of the RLE. He does have L BKA. -Wound cultures revealMSSA & Strep #DM2 w/neuropathy: #Peripheral artery disease #Essential hypertension #Seizure disorder #GERD #Anemia: #Obstructive sleep apnea on CPAP #Obesity BMI 39 #History of left BKA and multiple finger amputations Plan: -ID following> rocephin 2g qd x4 weeks, up to 6wks if necessary. weekly cbc+diff/esr/crp/cmp while on iv abx, f/u outpt -PICC -Wound care, follow-up with Dr. Sierra Discharge diagnosis: Right heel osteomyelitis cellulitis Secondary discharge diagnosis: Diabetes peripheral arterial disease hypertension seizures or GERD anemia ELONARD obesity Time Spent with Patient Time attestation: Total time spent providing and/or coordinating discharge services: Time spent: Greater than 30 minutes EXAM Constitutional Vitals: Temp Pulse Resp BP Pulse Ox O2 Del Method O2 Flow Rate 96.8 F L 87 16 132/81 100 Room Air 0 07/11/22 12:00 07/11/22 12:00 07/11/22 12:00 07/11/22 12:00 07/11/22 12:00 07/11/22 12:00 07/09/22 16:00 Discharge Data Data Completed and Pending Labs on day of discharge: Preliminary micro results at discharge 07/07/22 10:15 Gram Stain - Preliminary Bone - Foot Anaerobic Culture - Preliminary Streptococcus Canis Streptococcus Canis#2 07/07/22 10:10 Gram Stain - Preliminary Tissue - Foot Anaerobic Culture - Preliminary Discharge Plan Patient/Caregiver Discharge Instructions Activity: increase activity as tolerated Diet: Regular Diet Activity Restrictions/Additional Instructions: Follow-up with infectious disease in the clinic. Per ID patient will need weekly CBC with differential/CMP/ESR/CRP while on IV antibiotics. Sent to Dr. Sierra and PCP. Place PICC line outpt and provide PICC line care, d/c on 08/04/2022 unless otherwise indicated by Infectious disease physician. Prescriptions: New ceftriaxone 2 gram recon soln 2 g IV Q24H Qty: 23 0RF Continued metoprolol tartrate 25 mg tablet 25 mg PO BID Levemir FlexPen 100 unit/mL (3 mL) insulin pen 50 unit subcut BID omeprazole 20 mg capsule,delayed release(DR/EC) 20 mg PO QDAY C Complex 1,000 mg tablet extended release 1,000 mg PO QDAY cinnamon bark [Cinnamon] 500 mg capsule 500 mg PO BID krill oil [id number] mg capsule 1 cap PO QDAY atorvastatin 20 mg Tablet 40 mg PO QHS metformin 1,000 mg Tablet 1,000 mg PO BID melatonin 10 mg Tablet,Disintegrating 10 mg PO QHS venlafaxine [Effexor XR] 150 mg Capsule,Extended Release 24hr 225 mg PO QAM amlodipine 5 mg Tablet 5 mg PO QDAY gabapentin 300 mg Capsule 300 mg PO TID levothyroxine 200 mcg Tablet 200 mcg PO QDAY cholecalciferol (vitamin D3) [Vitamin D3] 125 mcg (5,000 unit) Tablet 150 mcg PO QDAY levothyroxine 50 mcg Capsule 50 mcg PO QDAY loratadine 10 mg Capsule 20 mg PO QAM Men's 50 Plus Multivitamin 400-20-370 mcg Tablet 1 tab PO DAILY Briviact 100 mg Tablet 100 mg PO BID aspirin 81 mg Capsule 81 mg PO QDAY olmesartan-hydrochlorothiazide 40-12.5 mg tablet 1 tab PO QDAY Trulicity 0.75 mg/0.5 mL pen injector 0.75 mg subcut WEEKLY Other Ambulatory Orders: OT Discharge Order (Routine) Location: None Selected Ordered By: Iftikhar Gil Physical Therapy at Discharge - General (Routine) Location: None Selected Ordered By: Iftikhar Gil Follow Up Plan Follow up with: Reynaldo Sierra MD [Physician] - Josiah Espinosa [Primary Care Provider] - Patient Disposition: Xfer SNF Prognosis: Fair Rehab Potential: Fair I certify that the patient requires SNF services: Yes Overall status at discharge: patient is progressing back to baseline Discharge Orders: Discharge Order (Routine); Ordered 07/12/22 Ordered By: Iftikhar Gil
[2022-07-11] MEDS ORDERED: 0.9 % SODIUM CHLORIDE 10 ML SYRINGE IV PRN (15:03)
[2022-07-11] MEDS: ENOXAPARIN 40 MG/0.4 ML SYRINGE SQ SCH (15:24)
[2022-07-11] MEDS: GABAPENTIN 300 MG CAPSULE PO SCH (21:06)
[2022-07-11] MEDS: MELATONIN 3 MG TABLET PO SCH (21:06)
[2022-07-11] MEDS: ATORVASTATIN 40 MG TABLET PO SCH (21:06)
[2022-07-11] MEDS: SENNOSIDES 1 TABLET PO SCH (21:13)
[2022-07-12] MEDS: 0.9 % SODIUM CHLORIDE 10 ML SYRINGE IV SCH ×2 (05:06→08:45)
[2022-07-12] MEDS: ceFAZolin 1 GM VIAL IV SCH (05:06)
[2022-07-12] MEDS: LEVOTHYROXINE 125 MCG TABLET PO SCH (07:46)
[2022-07-12] MEDS: OMEPRAZOLE 20 MG CAPSULE PO SCH (07:46)
[2022-07-12] MEDS: metFORMIN 500 MG TABLET PO SCH (07:46)
[2022-07-12] MEDS: INSULIN LISPRO 1 UNIT/0.01 ML UNIT SQ SCH ×4 (07:47→11:50)
--- NOTE | 2022-07-12 08:15 | Internal Med Progress Note ---
SUBJECTIVE Subjective Patient information: Note initiated : 07/12/22 at 8:13 am Service Date, if different from initiated Date: [] Patient: Aravind Ashley 61 y/o M admitted on 07/05/22 for foot wound. Chief Complaint: [] Principal diagnosis: Nonhealing right heel diabetic foot infection Interval history: Mr. Ashley is a 61-year-old male with a history of insulin-dependent type 2 diabetes, hypertension, seizure disorder, GERD, obstructive sleep apnea, obesity, peripheral artery disease complicated by multiple amputations including a left BKA and several fingers presented to the ED at the recommendation of wound care for further evaluation of a right heel wound. The patient says that he first noticed the heel wound in May and it has progressively worsened. The patient follows in the wound care clinic and was supposed to have a debridement done by Dr. Bermudez on 07/07/2022. In the emergency department, the patient was afebrile, had mild leukocytosis, no evidence of sepsis however the patient does clearly have an infection in his right heel. CRP was 4.3, ESR 73. The patient says that he has had prior right lower extremity angiography which showed peripheral arterial disease however it was not amenable to correction by IR. He had a left BKA after developing a left foot infection a while ago. He says at that time he was septic and required transfer to higher level of care and ultimately received the BKA during the hospitalization. 07/06 No significant events overnight, stable glycemic control, hemoglobin A1c was 8.5. CTA right lower extremity showed right iliac femoral and popliteal inflow widely patent, right anterior tibial and posterior tibial arteries are patent to the foot level but riddled with multiple stenosis greater than 50%, the right peroneal artery is occluded in the distal calf. Continues on broad-spectrum antibiotics, surgery planned for tomorrow. 07/07 Stable overnight, patient was taken to the OR for debridement of his heel wound earlier today. Discussed with Tuesday after surgery, Dr. Bermudez he thinks there may be osteomyelitis of the calcaneus bone. Infectious disease consulted. Continues on vancomycin IV dosed by pharmacy and Zosyn. 07/08: I took over the care of this patient today which point he is medically stable. He is calm, pleasant and cooperative. He has no active medical complaints today. 07/09: The patient was working with physical therapy this morning. Discussed the case with Dr. Sierra. The patient is otherwise doing quite well. 07/10: Patient is doing well. He has no active complaints or concerns. 07/11: Patient remains in good spirits. He is hoping he can go to [facility] tomorrow. 07/12 No overnight event or new complaints. Final recs per ID given. Review of Systems: denies headache/fever/chills/nausea/vomiting/chest or abdominal pain/cough/dyspnea/diarrhea. Otherwise see above. PHYSICAL EXAM General: Alert, Awake, No acute Distress, obese Eyes/N/T: EOMI, no scleral icterus, Head/Neck: neck supple, full ROM, CV: RRR, No murmurs, Pulm: Clear b/l, no wheezing/rhonchi/rales, no respiratory distress Abd: soft, nontender, +BS x4 Ext: no clubbing/cyanosis/edema, nontender Neuro: Alert, no focal deficits, moves all extremities, sensations intact b/l upper/lower Psychiatric: Skin: warm/dry, normal color Constitutional Vitals: Vital Signs Temp Pulse Resp BP Pulse Ox O2 Del Method O2 Flow Rate 97.1 F 76 12 137/67 100 CPAP 0 07/12/22 07:08 07/12/22 07:08 07/12/22 07:08 07/12/22 07:08 07/12/22 07:08 07/12/22 00:00 07/09/22 16:00 Period Temp Pulse Resp BP Sys/Kay Pulse Ox O2 Del Method O2 Flow Rate Last 24 Hr 96.8 F-97.9 F 76-88 12-20 132-144/67-86 96-100 CPAP-Room Air Intake and Output 07/11/22 07/12/22 07/12/22 19:59 03:59 11:59 Intake Total 300 800 Output Total 804 339 0796 Balance 0 300 -1000 Weight 139.253 kg Intake & Output: Intake & Output 07/11/22 07/12/22 07/12/22 19:59 03:59 11:59 Intake Total 300 800 Output Total 807 394 2716 Balance 0 300 -1000 Weight 139.253 kg Intake: Oral 300 800 Output: Void Amount 377 557 5591 Other: Urine Appearance Clear Clear Clear Urine Color Yellow Yellow Yellow Pale Urine Odor Normal Normal Normal Stool Size Copious Stool Color Brown Stool Consistency Soft # Voids 1 # Bowel Movements 1 OBJ DATA Labs 07/08/22 05:27 07/07/22 05:07 Meds: Medications Acetaminophen (Acetaminophen 325 Mg Tablet) 650 mg PO Q6HP PRN; Protocol PRN Reason: Per Pain Protocol/Fever > 101 Last Admin: 07/06/22 17:49 Dose: 650 mg Hydrocodone Bitart/Acetaminophen (Hydrocodone/Apap 5/325mg Tablet) 1 tab PO Q4HP PRN; Protocol PRN Reason: Per Pain Protocol Amlodipine Besylate (Amlodipine 5 Mg Tablet) 5 mg PO QDAY [facility] Last Admin: 07/11/22 09:20 Dose: 5 mg Aspirin (Aspirin 81 Mg Tab.Chew) 81 mg PO QDAY [facility] Last Admin: 07/11/22 09:21 Dose: 81 mg Atorvastatin Calcium (Atorvastatin 40 Mg Tablet) 40 mg PO QHS [facility] Last Admin: 07/11/22 21:06 Dose: 40 mg Cefazolin Sodium (Cefazolin 1 Gm Vial) 2 gm IV Q8H [facility]; Protocol Last Admin: 07/12/22 05:06 Dose: 2 gm Dextrose (Dextrose 50% 50 Ml Vial) 0 ml IV UD PRN PRN Reason: Per Sliding Scale Diagnostic Test (Pha) (Accu-Chek 1 Each Strip) 1 each FS ACHS [facility] Last Admin: 07/12/22 07:46 Dose: 1 each Docusate Sodium (Docusate Sodium 100 Mg Capsule) 100 mg PO BID [facility] Last Admin: 07/11/22 21:06 Dose: 100 mg Enoxaparin Sodium (Enoxaparin 40 Mg/0.4 Ml Syringe) 40 mg SQ DAILY [facility] Last Admin: 07/11/22 15:24 Dose: 40 mg Fish Oil (Fish Oil 1,000 Mg Capsule) 1,000 mg PO DAILY [facility] Last Admin: 07/11/22 09:21 Dose: 1,000 mg Gabapentin (Gabapentin 300 Mg Capsule) 300 mg PO QHS [facility] Last Admin: 07/11/22 21:06 Dose: 300 mg Glucose (Dextrose 31 Gm Oral.Susp) 15 gm PO PRN PRN PRN Reason: Hypoglycemia Heparin Sodium (Porcine) (Heparin Flush 10 Units/Ml 5 Ml Syringe) 2 ml IV Q12 [facility] Last Admin: 07/11/22 21:12 Dose: Not Given Hydrochlorothiazide (Hydrochlorothiazide 12.5 Mg Capsule) 12.5 mg PO DAILY [facility] Last Admin: 07/11/22 09:20 Dose: 12.5 mg Hydromorphone HCl (Hydromorphone 0.5 Mg/0.5 Ml Syringe) 0.5 mg IV Q2HP PRN; Protocol PRN Reason: Per Pain Protocol Gentamicin Sulfate 40 mg/Clindamycin Phosphate 300 mg/Sodium Chloride 503 mls @ 0 mls/hr IRR Q24H [facility]; Protocol Last Admin: 07/11/22 09:19 Dose: 40 mls/hr Insulin Glargine (Insulin Glargine, Human 1 Unit/0.01 Ml) 30 unit SQ BID [facility] Last Admin: 07/11/22 22:14 Dose: 30 units Insulin Human Lispro (Insulin Lispro 1 Unit/0.01 Ml Unit) 0 unit SQ ACHS [facility]; Protocol Last Admin: 07/12/22 07:47 Dose: Not Given Insulin Human Lispro (Insulin Lispro 1 Unit/0.01 Ml Unit) 0 unit SQ AC [facility] Last Admin: 07/12/22 07:47 Dose: 10 units Levothyroxine Sodium (Levothyroxine 125 Mcg Tablet) 250 mcg PO QAMAC [facility] Last Admin: 07/12/22 07:46 Dose: 250 mcg Loratadine (Loratadine 10 Mg Tablet) 10 mg PO DAILY [facility] Last Admin: 07/11/22 09:20 Dose: 10 mg Melatonin (Melatonin 3 Mg Tablet) 9 mg PO HS [facility] Last Admin: 07/11/22 21:06 Dose: 9 mg Metformin HCl (Metformin 500 Mg Tablet) 1,000 mg PO BIDCC [facility] Last Admin: 07/12/22 07:46 Dose: 1,000 mg Metoprolol Tartrate (Metoprolol Tartrate 25 Mg Tablet) 25 mg PO BID [facility] Last Admin: 07/11/22 21:06 Dose: 25 mg Mupirocin (Mupirocin Oint 2% 22gm) 1 dose NARES BID [facility] Last Admin: 07/11/22 21:06 Dose: 1 dose Olmesartan (Olmesartan Medoxomil 20 Mg Tablet) 40 mg PO DAILY [facility] Last Admin: 07/11/22 09:21 Dose: 40 mg Omeprazole (Omeprazole 20 Mg Capsule) 20 mg PO QAMAC [facility] Last Admin: 07/12/22 07:46 Dose: 20 mg Ondansetron HCl (Ondansetron 4 Mg/2 Ml Vial) 4 mg IV Q6HP PRN PRN Reason: Nausea And Vomiting Briviact 100mg Tab 1 dose PO BID [facility] Last Admin: 07/11/22 21:08 Dose: 1 dose Senna (Sennosides 1 Tablet) 2 tab PO HS [facility] Last Admin: 07/11/22 21:13 Dose: Not Given Sodium Chloride (0.9 % Sodium Chloride 10 Ml Syringe) 10 ml IV Q8 [facility] Last Admin: 07/12/22 05:06 Dose: 10 ml Sodium Chloride (0.9 % Sodium Chloride 10 Ml Syringe) 10 ml IV Q12 [facility] Last Admin: 07/11/22 21:13 Dose: 10 ml Sodium Chloride (0.9 % Sodium Chloride 10 Ml Syringe) 10 ml IV UD PRN PRN Reason: FLUSH Venlafaxine HCl (Venlafaxine 150 Mg Cap.Xl.24h) 300 mg PO DAILY [facility] Last Admin: 07/11/22 09:21 Dose: 300 mg A/P Narrative A/P Narrative: A: #Right heel diabetic foot infection/cellulitis?osteomyelitis: s/p I&D (07/07) -CT roger reveals no signifiant PVD of the RLE. He does have L BKA. -Wound cultures reveal MSSA & Strep #DM2 w/neuropathy: #Peripheral artery disease #Essential hypertension #Seizure disorder #GERD #Anemia: #Hypothyroidism: Continue levothyroxine #Obstructive sleep apnea on CPAP #Obesity BMI 39 #History of left BKA and multiple finger amputations Plan: -ID following> Rocephin 2g qd x4 weeks, up to 6wks if necessary. weekly cbc+diff/esr/crp/cmp while on iv abx, f/u outpt -PICC -Wound care surgery following, -Lantus 50 units at bedtime, prandial Humalog 1unit to 6 g carb ratio, correction Humalog SSI low-dose. -Analgesics as needed. -Continue home Norvasc/Lopressor/ARB, aspirin/Lipitor, gabapentin, , omeprazole, Brivaracetam. -Consistent carbohydrate diet -CPAP at bedtime. -CM for placement needs -ppx: lovenox CODE STATUS: Supervisor Warping Department Spent With Patient Time: Total time spent is greater than 50% in coordination of care (as documented) at patient's floor/unit and/or counseling patient:
[2022-07-12] MEDS: OLMESARTAN MEDOXOMIL 20 MG TABLET PO SCH (08:37)
[2022-07-12] MEDS: FISH OIL 1,000 MG CAPSULE PO SCH (08:37)
[2022-07-12] MEDS: ASPIRIN 81 MG TAB.CHEW PO SCH (08:37)
[2022-07-12] MEDS: amLODIPine 5 MG TABLET PO SCH (08:38)
[2022-07-12] MEDS: DOCUSATE SODIUM 100 MG CAPSULE PO SCH (08:38)
[2022-07-12] MEDS: VENLAFAXINE 150 MG CAP.XL.24H PO SCH (08:38)
[2022-07-12] MEDS: HYDROCHLOROTHIAZIDE 12.5 MG CAPSULE PO SCH (08:38)
[2022-07-12] MEDS: LORATADINE 10 MG TABLET PO SCH (08:38)
[2022-07-12] MEDS: METOPROLOL TARTRATE 25 MG TABLET PO SCH (08:38)
[2022-07-12] MEDS: GENTAMICIN SULFATE 40 MG, CLINDAMYCIN 300 MG in SODIUM CHLORIDE IRRIG SOLUTION 500 ML IRR SCH (08:39)
[2022-07-12] MEDS: ENOXAPARIN 40 MG/0.4 ML SYRINGE SQ SCH (08:39)
[2022-07-12] MEDS: INSULIN GLARGINE, HUMAN 1 UNIT/0.01 ML SQ SCH (08:39)
[2022-07-12] MEDS: BRIVIACT 100 MG PO SCH (08:39)
[2022-07-12] MEDS: MUPIROCIN OINT 2% 22GM NARES SCH (08:45)
--- NOTE | 2022-07-12 12:15 | General Surgery Progress Note ---
SUBJECTIVE Subjective Patient information: Note initiated : 07/12/22 at 12:07 pm Service Date, if different from initiated Date: [] Patient: Aravind Ashley 61 y/o M admitted on 07/05/22 for foot wound. Chief Complaint: [] Principal diagnosis: Nonhealing right heel diabetic foot infection Additional PMFSH (Level 3 Only): Patient seen with Jennifer Graham RNinsurance healthcare consultant nurse event marketing manager. Patient is doing well. NO interval changes. RIGHT posterior heel surgical wound site is healing well. ID note and recommendations from Dr. Nithin cabrera. Constitutional Vitals: Vital Signs Temp Pulse Resp BP Pulse Ox O2 Del Method O2 Flow Rate 97.1 F 76 12 137/67 100 CPAP 0 07/12/22 07:08 07/12/22 07:08 07/12/22 07:08 07/12/22 07:08 07/12/22 07:08 07/12/22 00:00 07/09/22 16:00 Period Temp Pulse Resp BP Sys/Kay Pulse Ox O2 Del Method O2 Flow Rate Last 24 Hr 97 F-97.9 F 76-88 12-20 137-144/67-86 96-100 CPAP-Room Air Intake and Output 07/12/22 07/12/22 07/12/22 03:59 11:59 19:59 Intake Total 800 Output Total 500 1000 Balance 300 -1000 Weight 307 lb Intake & Output: Intake & Output 07/12/22 07/12/22 07/12/22 03:59 11:59 19:59 Intake Total 800 Output Total 500 1000 Balance 300 -1000 Weight 307 lb Intake: Oral 800 Output: Void Amount 500 1000 Other: Urine Appearance Clear Clear Urine Color Yellow Yellow Urine Odor Normal Normal Exam: 07/12/2022 No changes GEORGETTE. L/E granulating wound RIGHT posterior heel. Wound c/s Staph and Strep. ID recommendation of Ceftriaxone 2 Gm / day for 4-6 weeks seen. For D/C to SNF / Rehab after PICC line. A/P Narrative A/P Narrative: Assessment: Satisfactory progress from wound care point of view. Plan: Spoke with patient about ongoing wound care Continue with daily GCB wound care. Poitr 1 Can PO BID. After d/c f/u at wound care clinic in ONE week. Time Spent With Patient Time: Total time spent is greater than 50% in coordination of care (as documented) at patient's floor/unit and/or counseling patient:
== END 2022-07-12 12:07 | DRG 504 ==
LOC: ED 14:36 → MEDSUR 19:24
PROVIDERS: ADMIT Internal Medicine; ATTEND Internal Medicine

== ENCOUNTER 2023-05-07 12:09 | Inpatient (IN) ==
[2023-05-07] MEDS: PIPERACILLIN SODIUM/TAZOBACTAM 3.375 GM in DEXTROSE 5% IN WATER 50 ML IV ONE (12:53)
[2023-05-07] MEDS: VANCOMYCIN 1,500 MG in 0.9 % SODIUM CHLORIDE 500 ML IV ONE (13:00)
[2023-05-07] MEDS: LACTATED RINGERS 1,000 ML IV ONE (14:28)
[2023-05-07] MEDS ORDERED: DEXTROSE 31 GM ORAL.SUSP PO PRN ×2 (16:37→17:07)
[2023-05-07] MEDS ORDERED: VANCOMYCIN PER PHARMACY IV SCH (16:37)
[2023-05-07] MEDS ORDERED: ONDANSETRON 4 MG/2 ML VIAL IV PRN (16:37)
[2023-05-07] MEDS ORDERED: DEXTROSE 50% 50 ML VIAL IV PRN ×2 (16:37→17:07)
[2023-05-07 17:25] LABS: Basophils # (Auto) 0.04 K/mcL (0.00-0.30); Basophils % (Auto) 0.4 % (0.0-2.0); Eosinophils # (Auto) 0.41 K/mcL (0.00-0.70); Eosinophils % (Auto) 4.4 % (0.0-7.0); Hematocrit 32.3 % (40.1-51.0); Hemoglobin 10.3 g/dL (13.7-17.5); Lymphocytes # (Auto) 0.78 K/mcL (1.50-4.80); Lymphocytes % (Auto) 8.3 % (15.5-49.0); Mean Cell Volume 87.1 fL (80.0-100.0); Mean Corpuscular HGB Conc 31.9 g/dL (31.0-36.0); Mean Platelet Volume 9.5 fL (8.8-12.5); Monocytes # (Auto) 0.86 K/mcL (0.10-0.90); Monocytes % (Auto) 9.2 % (1.0-12.0); Neutrophils % (Auto) 77.4 % (38.0-78.0); Platelet Count 378 K/mcL (140-440); RBC 3.71 M/mcL (4.63-6.08); Red Cell Distribution Width 13.3 % (11.5-14.5); WBC 9.4 K/mcL (4.5-11.0)
[2023-05-07 17:34] LABS: ALT/SGPT 17 U/L (<40); AST/SGOT 19 U/L (<40); Albumin 3.2 gm/dL (3.2-5.2); Alkaline Phosphatase 119 U/L (39-117); Bilirubin,Direct < 0.2 mg/dL (0-0.3); Bilirubin,Total < 0.2 mg/dL (0.1-1.0); Blood Urea Nitrogen 33 mg/dL (6-20); Calcium 9.2 mg/dL (8.6-10.4); Carbon Dioxide 20 mmol/L (22-30); Chloride 97 mmol/L (96-108); Globulin 3.2 gm/dL (2.2-3.7); Glomerular Filtration Rate 92; Glucose 167 mg/dL (70-105); Lactate Dehydrogenase 117 U/L (135-225); Phosphorous 3.4 mg/dL (2.5-4.5); Triglycerides 182 mg/dL (<150); Uric Acid 8.2 mg/dL (2.5-8.0)
[2023-05-07 17:57] LABS: Creatine Kinase 96 U/L (24-195)
[2023-05-07 18:00] LABS: Estimated Average Glucose(eAG) 209 mg/dL; Hemoglobin A1C 8.9 % Hgb (4.0-6.0)
[2023-05-07] MEDS: INSULIN LISPRO 1 UNIT/0.01 ML UNIT SQ SCH (18:46)
[2023-05-07] MEDS ORDERED: IOPAMIDOL 100 ML BOTTLE IV ONE (18:52)
[2023-05-07] MEDS: CEFEPIME 2 GM VIAL IV SCH (19:49)
[2023-05-07] MEDS: metroNIDAZOLE 500 MG/100 ML BAG IV SCH (20:28)
[2023-05-07] MEDS ORDERED: INSULIN GLARGINE, HUMAN 1 UNIT/0.01 ML SQ SCH (21:00)
[2023-05-07] MEDS ORDERED: INSULIN LISPRO 1 UNIT/0.01 ML UNIT SQ SCH (21:00)
[2023-05-07] MEDS: ACETAMINOPHEN 325 MG TABLET PO PRN (21:57)
[2023-05-07] MEDS: SENNOSIDES 1 TABLET PO SCH (22:10)
[2023-05-07] MEDS: INSULIN GLARGINE, HUMAN 1 UNIT/0.01 ML SQ SCH (22:12)
[2023-05-07] MEDS: DOCUSATE SODIUM 100 MG CAPSULE PO SCH (22:13)
[2023-05-07] MEDS: 0.9 % SODIUM CHLORIDE 10 ML SYRINGE IV SCH (22:14)
[2023-05-07] MEDS: VANCOMYCIN 1,500 MG in 0.9 % SODIUM CHLORIDE 500 ML IV SCH (22:57)
[2023-05-08] MEDS: INSULIN LISPRO 1 UNIT/0.01 ML UNIT SQ SCH ×3 (07:39→12:09)
[2023-05-08] MEDS: ENOXAPARIN 40 MG/0.4 ML SYRINGE SQ SCH (09:27)
[2023-05-08] MEDS: DAPTOmycin 500 MG VIAL IV SCH (10:44)
[2023-05-08] MEDS: ERTAPENEM 1 GM in 0.9 % SODIUM CHLORIDE 50 ML IV SCH (10:44)
[2023-05-08] MEDS: MELATONIN 3 MG TABLET PO SCH (20:50)
[2023-05-08] MEDS: METOPROLOL TARTRATE 25 MG TABLET PO SCH (20:50)
[2023-05-09] MEDS: LEVOTHYROXINE 125 MCG TABLET PO SCH (07:06)
[2023-05-09] MEDS: OMEPRAZOLE 20 MG CAPSULE PO SCH (07:06)
[2023-05-09 09:12] LABS: Blood Urea Nitrogen 18 mg/dL (6-20); Calcium 9.2 mg/dL (8.6-10.4); Carbon Dioxide 27 mmol/L (22-30); Chloride 99 mmol/L (96-108); Glomerular Filtration Rate 97; Glucose 204 mg/dL (70-105)
[2023-05-09] MEDS: GABAPENTIN 300 MG CAPSULE PO SCH (10:07)
[2023-05-09] MEDS: amLODIPine 5 MG TABLET PO SCH (10:10)
[2023-05-09] MEDS: LORATADINE 10 MG TABLET PO SCH (10:10)
[2023-05-09] MEDS: HYDROCHLOROTHIAZIDE 12.5 MG CAPSULE PO SCH (14:22)
[2023-05-09] MEDS: OLMESARTAN MEDOXOMIL 20 MG TABLET PO SCH (14:22)
[2023-05-09] MEDS: NIFEdipine 30 MG TAB.XL.24H PO ONE (15:37)
[2023-05-09] MEDS: VENLAFAXINE 150 MG CAP.XL.24H PO SCH (15:37)
[2023-05-10] MEDS: INSULIN LISPRO 1 UNIT/0.01 ML UNIT SQ SCH (08:10)
[2023-05-10] MEDS: NIFEdipine 30 MG TAB.XL.24H PO SCH (08:29)
[2023-05-10] MEDS: 0.9 % SODIUM CHLORIDE 10 ML SYRINGE IV SCH (09:14)
== END 2023-05-10 13:00 | DRG 540 ==
LOC: ED 12:09 → MEDSUR 16:29
PROVIDERS: ADMIT Internal Medicine; ATTEND Internal Medicine